=== PATIENT | female | born 1940 | race Caucasian/White ===

== ENCOUNTER 2016-08-25 21:39 | Inpatient (IN) | payer OTHER ==
[2016-08-25 21:48] VITALS: BMI 46.0
--- NOTE | 2016-08-25 22:37 | PDOC ---
History of Present Illness - General History Source: Patient <SindyGrey - Last Filed: 08/26/16 05:01> - General History Source: Patient Exam Limitations: No Limitations - History of Present Illness Initial Comments: 08/26/16 00:01 The patient is a 75 year old female with a PMH of HTN, HLD, DVT, diabetes, arthritis, UTIs, neuropathy bilateral lower extremities, and spinal stenosis presented to the ED today complaining of painless vaginal bleeding that has occurred on and off for several weeks. Today the patient noted her diaper was more and more stained with blood. She also reports frequent UTIs and dysuria. She was examined by her correction staff and they found bleeding in the vaginal region. Denies: Nausea, vomiting, diarrhea, abdominal pain, fever and chills Allergies: Codeine Family History: Heart disease, diabetes PCP: Dr. Dpiti Gutierrez <Debra Hatfield - Last Filed: 08/26/16 05:20> <Linette Marc - Last Filed: 08/26/16 06:45> - General Chief Complaint: Vaginal Bleeding Stated Complaint: VAGINAL BLEEDING Time Seen by Provider: 08/25/16 22:32 Past History - Past Medical History Diabetes: Yes HTN: Yes Suicide Attempt (Hx): No - Surgical History Cholecystectomy: Yes - Family Disease History Family Disease History: Diabetes: Father, Heart Disease: Father - Immunization History Immunization Up to Date: Yes - Psycho/Social/Smoking Cessation Hx Anxiety: No Suicidal Ideation: No Smoking History: Never smoked Have you smoked in the past 12 months: No Hx Alcohol Use: No Drug/Substance Use Hx: No Substance Use Type: None Hx Substance Use Treatment: No <Grey Callahan - Last Filed: 08/26/16 05:01> <Debra Hatfield - Last Filed: 08/26/16 05:20> <Linette Marc - Last Filed: 08/26/16 06:45> - Past Medical History Allergies/Adverse Reactions: Allergies Allergy/AdvReac Type Severity Reaction Status Date / Time codeine Allergy Verified 08/25/16 21:45 Home Medications: Ambulatory Orders Alprazolam [Xanax Xr] 0.5 mg PO DAILY 06/18/16 Alprazolam [Xanax] 0.25 mg PO DAILY PRN 06/18/16 Ascorbic Acid [Vitamin C] 500 mg PO DAILY 06/18/16 Bethanechol Chloride [Urecholine] 50 mg PO TID 06/18/16 Calcium Carbonate/Vitamin D3 [Oyster Shell 500-Vit D3 200 Tb] 1 each PO BID Gabapentin 300 mg PO BID 06/18/16 Gabapentin 600 mg PO DAILY 06/18/16 Glimepiride 2 mg PO DAILY 06/18/16 Hydrochlorothiazide [Hctz -] 25 mg PO DAILY 06/18/16 Insulin Aspart [Novolog] 4 unit SQ HS 06/18/16 Linagliptin [Tradjenta] 5 mg PO DAILY 06/18/16 Lisinopril 5 mg PO DAILY 06/18/16 Miconazole Nitrate [Micatin] 15 gm TP BID 06/18/16 Omeprazole 20 mg PO DAILY 06/18/16 Polyethylene Glycol 3350 [Miralax (For Daily Use) -] 17 gm PO HS 06/18/16 Propylene Glycol/Peg 400/Pf [Systane 0.3-0.4% Eye Drops] 2 drop OU BID 06/18/16 Sertraline HCl 50 mg PO DAILY 06/18/16 Simethicone 80 mg PO Q4H PRN 06/18/16 Tramadol HCl 50 mg PO Q6H PRN 06/18/16 Warfarin Sodium 4 mg PO DAILY 06/18/16 Zinc Oxide 20% Topical Oint 454 gm NR ASDIR 06/18/16 Review of Systems - Review of Systems Able to Perform ROS?: Yes Comments:: 08/26/16 00:10 CONSTITUTIONAL: Absent: fever, chills, diaphoresis, generalized weakness, malaise, loss of appetite HEENT: Absent: rhinorrhea, nasal congestion, throat pain, throat swelling, difficulty swallowing, mouth swelling, ear pain, eye pain, visual Changes CARDIOVASCULAR: Absent: chest pain, syncope, palpitations, irregular heart rate, lightheadedness , peripheral edema RESPIRATORY: Absent: cough, shortness of breath, dyspnea with exertion, orthopnea, wheezing, stridor, hemoptysis GASTROINTESTINAL: Absent: abdominal pain, abdominal distension, nausea, vomiting, diarrhea, constipation, melena, hematochezia GENITOURINARY: +Dysuria, painless vaginal bleeding Absent: frequency, urgency, hesitancy, flank pain, genital pain MUSCULOSKELETAL: Absent: myalgia, arthralgia, joint swelling SKIN: Absent: rash, itching, pallor NEUROLOGIC: Absent: headache, focal weakness or paresthesias, dizziness, unsteady gait, seizure, mental status changes, bladder or bowel incontinence PSYCHIATRIC: Absent: anxiety, depression, suicidal or homicidal ideation, hallucinations <Debra Hatfield - Last Filed: 08/26/16 05:20> *Physical Exam - Vital Signs Last Vital Signs Temp Pulse Resp BP Pulse Ox 98.1 F 77 18 162/74 100 08/25/16 21:45 08/25/16 21:45 08/25/16 21:45 08/25/16 21:45 08/25/16 21:45 <Grey Callahan - Last Filed: 08/26/16 05:01> - Vital Signs Last Vital Signs Temp Pulse Resp BP Pulse Ox 98.1 F 77 18 162/74 100 08/25/16 21:45 08/25/16 21:45 08/25/16 21:45 08/25/16 21:45 08/25/16 21:45 - Physical Exam Comments: 08/26/16 00:10 GENERAL: Well developed, well nourished. Awake and alert. No acute distress. HEENT: Normocephalic, atraumatic. PERRLA, EOMI. No conjunctival pallor. Sclera are non- icteric. Moist mucous membranes. Oropharynx is clear. NECK: Supple. Full ROM. No JVD. Carotid pulses 2+ and symmetric, without bruits. No thyromegaly. No lymphadenopathy. No neck tenderness CARDIOVASCULAR: Regular rate and rhythm. No murmurs, rubs, or gallops. Distal pulses are 2+ and symmetric. PULMONARY: No evidence of respiratory distress. Lungs clear to auscultation bilaterally. No wheezing, rales or rhonchi. ABDOMINAL: Soft. Non-tender. Non-distended. No rebound or guarding. No organomegaly. Normoactive bowel Sounds. PELVIC EXAM: No blood within introitus, No masses, No lesions. No CMT, No suprapubic tenderness MUSCULOSKELETAL Normal range of motion at all joints. No bony deformities or tenderness. No CVA tenderness. EXTREMITIES: No cyanosis. No clubbing. No edema. No calf tenderness. SKIN: Warm and dry. Normal capillary refill. No rashes. No jaundice. NEUROLOGICAL: Alert, awake, appropriate. Cranial nerves 2-12 intact. No deficits to light touch and temperature in face, upper extremities and lower extremities. PSYCHIATRIC: Cooperative. Good eye contact. Appropriate mood and affect. <Debra Hatfield - Last Filed: 08/26/16 05:20> - Vital Signs Last Vital Signs Temp Pulse Resp BP Pulse Ox 98.1 F 73 18 140/56 96 08/25/16 21:45 08/26/16 03:29 08/26/16 03:29 08/26/16 03:29 08/26/16 03:29 <Linette Marc - Last Filed: 08/26/16 06:45> Heart Score/ECG Review - ECG Impressions Comment:: 08/26/16 06:45 NSR @74bpm Anterior infarct, age undetermined Abnormal ECG <Linette Marc - Last Filed: 08/26/16 06:45> ED Treatment Course - LABORATORY CBC & Chemistry Diagram: 08/26/16 01:26 08/26/16 01:26 <Grey Callahan - Last Filed: 08/26/16 05:01> - LABORATORY CBC & Chemistry Diagram: 08/26/16 01:26 08/26/16 01:26 <Debra Hatfield - Last Filed: 08/26/16 05:20> - LABORATORY CBC & Chemistry Diagram: 08/26/16 01:26 08/26/16 01:26 - ADDITIONAL ORDERS Additional order review: Laboratory Results 08/26/16 08/26/16 08/26/16 01:26 01:26 00:05 INR 2.39 H Sodium 142 Potassium 4.2 Chloride 105 Carbon Dioxide 28 Anion Gap 9 BUN 27 H D Creatinine 1.3 H Creat Clearance w eGFR 39.93 Random Glucose 135 H D Calcium 8.4 L Total Bilirubin 0.3 AST 25 D ALT 23 D Alkaline Phosphatase 97 D Total Protein 7.5 Albumin 3.2 L Urine Color Yellow Urine Appearance Slcloudy Urine pH 6.0 Ur Specific [place] 1.014 Urine Protein 1+ H Urine Glucose (UA) Negative Urine Ketones Negative Urine Blood 3+ H Urine Nitrite Negative Urine Bilirubin Negative Urine Urobilinogen Negative Ur Leukocyte Esterase 3+ H Urine RBC 605 Urine WBC 314 Ur Epithelial Cells Rare Urine Bacteria Few 08/26/16 01:26 RBC 4.19 MCV 79.4 L MCHC 31.1 L RDW 17.4 H MPV 8.8 Neutrophils % 72.7 Lymphocytes % 19.5 D Monocytes % 5.8 Eosinophils % 1.8 D Basophils % 0.2 - Medications Given in the ED: ED Medications Discontinued Medications Generic Name Dose Route Start Last Admin Trade Name Aureliano PRN Reason Stop Dose Admin Ceftriaxone Sodium 1,000 mg 08/26/16 01:05 08/26/16 02:16 Rocephin - IVPB 08/26/16 01:06 1,000 mg ONCE ONE Administration Non-Formulary Medication 454 gm 08/26/16 06:00 08/26/16 06:04 Zinc Oxide 20% Topical Oint NR Not Given TID ESHA <Linette Marc - Last Filed: 08/26/16 06:45> Medical Decision Making - Medical Decision Making 08/26/16 05:01 Dr. Callahan: The scribe's documentation has been prepared under my direction and personally reviewed by me in its entirery. I confirm that the note above accurately reflects all work, treatment, procedures, and medical decision making performed by me. Patient with recurrent UTIs. Patient's BUN/creatinine are slightly more elevated than before. Will admit. <Grey Callahan - Last Filed: 08/26/16 05:01> - Medical Decision Making 08/26/16 00:12 Fishman was placed. Cloudy urine came out with clots of blood. <Debra Hatfield - Last Filed: 08/26/16 05:20> *DC/Admit/Observation/Transfer - Discharge Dispostion Admit: Yes <Grey Callahan - Last Filed: 08/26/16 05:01> - Attestations Scribe Attestion: 08/26/16 00:12 Documentation prepared by Debra Hatfield, acting as medical records coder for Grey Callahan MD/DO. <Debra Hatfield - Last Filed: 08/26/16 05:20> <Linette Marc - Last Filed: 08/26/16 06:45> Diagnosis at time of Disposition: UTI (lower urinary tract infection) - Referrals
[2016-08-26 00:16] LABS: URINE APPEARANCE SLCLOUDY; URINE BILIRUBIN NEGATIVE (NEGATIVE); URINE COLOR YELLOW; URINE GLUCOSE (UA) NEGATIVE (NEGATIVE); URINE KETONE NEGATIVE (NEGATIVE); URINE NITRITE NEGATIVE (NEGATIVE); URINE UROBILINOGEN NEGATIVE E.U./dl (0.2-1.0)
[2016-08-26 00:21] LABS: URINE BLOOD 3+ (NEGATIVE); URINE LEUK ESTERASE 3+ (NEGATIVE); URINE PROTEIN 1+ (NEGATIVE)
[2016-08-26 00:36] LABS: URINE BACTERIA FEW /hpf (NONE SEEN); URINE RBC 605 /hpf (0-3); URINE WBC 314 /hpf (3-5)
[2016-08-26] MEDS ORDERED: CEFTRIAXONE 50 ML ONE (01:21)
[2016-08-26 02:21] LABS: BASOPHIL 0.2 % (0-2.0); EOSINOPHIL 1.8 % (0-4.5); MCH 24.7 pg (25.7-33.7); MCHC 31.1 g/dl (32.0-36.0); MEAN CELL VOLUME 79.4 fl (80-96); MEAN PLT VOLUME 8.8 fl (7.5-11.1); NEUTROPHILS 72.7 % (42.8-82.8); PLATELET COUNT 230 K/MM3 (134-434); RDW 17.4 % (11.6-15.6); WHITE BLOOD COUNT 7.6 K/mm3 (4.0-10.0)
[2016-08-26 02:40] LABS: INR 2.39 (0.82-1.09); PROTHROMBIN TIME (PATIENT) 26.8 SEC (9.98-11.88)
[2016-08-26 02:45] LABS: ALBUMIN 3.2 g/dl (3.4-5.0); BILIRUBIN,TOTAL 0.3 mg/dL (0.2-1.0); CALCIUM 8.4 mg/dL (8.5-10.1); CREATININE 1.3 mg/dL (0.55-1.02); TOT PROT 7.5 g/dl (6.4-8.2)
[2016-08-26] MEDS ORDERED: ALPRAZolam 0.25 MG TABLET PO PRN (05:41)
[2016-08-26] MEDS ORDERED: SIMETHICONE 80 MG TAB.CHEW (FP) PO PRN (05:41)
[2016-08-26] MEDS ORDERED: traMADol HCL 50 MG TABLET PO PRN (05:41)
--- NOTE | 2016-08-26 05:41 | HP ---
CHIEF COMPLAINT: vaginal bleeding, dysuria PCP: Matt HISTORY OF PRESENT ILLNESS: This is a 75 year old female terminal [facility] resident of [facility] with a past medical history of hypertension, DVT, DM, arthritis, UTIs, neuropathy, spinal stenosis who presented to the ED with a complaint of " vaginal bleeding". Pt also reports dysuria off and on since mid May for which she has been treated multiple times with antibiotics. As per ED doctor, no blood in vaginal vault, + kasie hematuria. Pt is being admitted for UTI. ER course was notable for: (1) u/a c/w UTI (2) normal WBC (3) afebrile Recent Travel: pt denies PAST MEDICAL HISTORY: DM arthritis spinal stenosis with neuropathy recurrent UTI HTN bilat DVT after cholecystectomy PAST SURGICAL HISTORY: cholecystectomy x 2 Social History: Smoking: pt denies Alcohol:pt denies Drugs: pt denies Family History: mother age 64, brain [place] father age 64, [place] daughter alive and well, s/p meningioma near eyes, removed 1 son, [place], smoker's cough Allergies codeine Allergy (Verified 08/25/16 21:45) HOME MEDICATIONS: 3 Medication Instructions Recorded Alprazolam [Xanax Xr] 0.5 mg PO DAILY 06/18/16 Alprazolam [Xanax] 0.25 mg PO DAILY PRN 06/18/16 Ascorbic Acid [Vitamin C] 500 mg PO DAILY 06/18/16 Bethanechol Chloride [Urecholine] 50 mg PO TID 06/18/16 Calcium Carbonate/Vitamin D3 1 each PO BID 06/18/16 [Oyster Shell 500-Vit D3 200 Tb] Gabapentin 300 mg PO BID 06/18/16 Gabapentin 600 mg PO DAILY 06/18/16 Glimepiride 2 mg PO DAILY 06/18/16 Hydrochlorothiazide [Hctz -] 25 mg PO DAILY 06/18/16 Insulin Aspart [Novolog] 4 unit SQ HS 06/18/16 Linagliptin [Tradjenta] 5 mg PO DAILY 06/18/16 Lisinopril 5 mg PO DAILY 06/18/16 Miconazole Nitrate [Micatin] 15 gm TP BID 06/18/16 Omeprazole 20 mg PO DAILY 06/18/16 Polyethylene Glycol 3350 [Miralax 17 gm PO HS 06/18/16 (For Daily Use) -] Propylene Glycol/Peg 400/Pf 2 drop OU BID 06/18/16 [Systane 0.3-0.4% Eye Drops] Sertraline HCl 50 mg PO DAILY 06/18/16 Simethicone 80 mg PO Q4H PRN 06/18/16 Tramadol HCl 50 mg PO Q6H PRN 06/18/16 Warfarin Sodium 4 mg PO DAILY 06/18/16 Zinc Oxide 20% Topical Oint 454 gm NR ASDIR 06/18/16 REVIEW OF SYSTEMS CONSTITUTIONAL: Absent: fever, chills, diaphoresis, generalized weakness, malaise, loss of appetite, weight change HEENT: Absent: rhinorrhea, nasal congestion, throat pain, throat swelling, difficulty swallowing, mouth swelling, ear pain, eye pain, visual changes CARDIOVASCULAR: Absent: chest pain, syncope, palpitations, irregular heart rate, lightheadedness , peripheral edema RESPIRATORY: Absent: cough, shortness of breath, dyspnea with exertion, orthopnea, wheezing, stridor, hemoptysis GASTROINTESTINAL: Absent: abdominal pain, abdominal distension, nausea, vomiting, diarrhea, constipation, melena, hematochezia GENITOURINARY: dysuria, vaginal bleeding Absent: frequency, urgency, hesitancy, hematuria, flank pain, genital pain MUSCULOSKELETAL: Absent: myalgia, arthralgia, joint swelling, back pain, neck pain SKIN: Absent: rash, itching, pallor HEMATOLOGIC/IMMUNOLOGIC: Absent: easy bleeding, easy bruising, lymphadenopathy, frequent infections ENDOCRINE: Absent: unexplained weight gain, unexplained weight loss, heat intolerance, cold intolerance NEUROLOGIC: Absent: headache, focal weakness or paresthesias, dizziness, unsteady gait, seizure, mental status changes, bladder or bowel incontinence PSYCHIATRIC: Absent: anxiety, depression, suicidal or homicidal ideation, hallucinations. PHYSICAL EXAMINATION Vital Signs - 24 hr 3 08/25/16 08/26/16 21:45 03:29 Temperature 98.1 F Pulse Rate 77 Pulse Rate [ 73 Radial] Respiratory 18 18 Rate Blood Pressure 162/74 Blood Pressure 140/56 [Right Arm] O2 Sat by Pulse 100 96 Oximetry (%) GENERAL: Awake, alert, and fully oriented, in no acute distress. HEAD: Normal with no signs of trauma. EYES: Pupils equal, round and reactive to light, extraocular movements intact, sclera anicteric, conjunctiva clear. No lid lag. EARS, NOSE, THROAT: Ears normal, nares patent, oropharynx clear without exudates. Moist mucous membranes. NECK: Normal range of motion, supple without lymphadenopathy, JVD, or masses. LUNGS: Breath sounds equal, clear to auscultation bilaterally. No wheezes, and no crackles. No accessory muscle use. HEART: Regular rate and rhythm, normal S1 and S2 without murmur, rub or gallop. ABDOMEN: Soft, nontender, not distended, normoactive bowel sounds, no guarding, no rebound, no masses. No hepatomegaly or splenomegaly. MUSCULOSKELETAL: Normal range of motion at all joints. No bony deformities or tenderness. No CVA tenderness. UPPER EXTREMITIES: 2+ pulses, warm, well-perfused. No cyanosis. No clubbing. Cap refill <2 seconds. No peripheral edema. LOWER EXTREMITIES: 2+ pulses, warm, well-perfused. No calf tenderness. 1+edema NEUROLOGICAL: Cranial nerves II-XII intact. Normal speech. Normal gait. PSYCHIATRIC: Cooperative. Good eye contact. Appropriate mood and affect. SKIN: Warm, dry, normal turgor, no rashes or lesions noted. Laboratory Results - last 24 hr 3 08/26/16 08/26/16 08/26/16 00:05 01:26 01:26 WBC 7.6 D RBC 4.19 Hgb 10.4 L D Hct 33.3 MCV 79.4 L MCHC 31.1 L RDW 17.4 H Plt Count 230 D MPV 8.8 Neutrophils % 72.7 Lymphocytes % 19.5 D Monocytes % 5.8 Eosinophils % 1.8 D Basophils % 0.2 INR 2.39 H Sodium 142 Potassium 4.2 Chloride 105 Carbon Dioxide 28 Anion Gap 9 BUN 27 H D Creatinine 1.3 H Creat Clearance w eGFR 39.93 Random Glucose 135 H D Calcium 8.4 L Total Bilirubin 0.3 AST 25 D ALT 23 D Alkaline Phosphatase 97 D Total Protein 7.5 Albumin 3.2 L Urine Color Yellow Urine Appearance Slcloudy Urine pH 6.0 Ur Specific [place] 1.014 Urine Protein 1+ H Urine Glucose (UA) Negative Urine Ketones Negative Urine Blood 3+ H Urine Nitrite Negative Urine Bilirubin Negative Urine Urobilinogen Negative Ur Leukocyte Esterase 3+ H Urine RBC 605 Urine WBC 314 Ur Epithelial Cells Rare Urine Bacteria Few ASSESSMENT/PLAN: 75yF with PMH hypertension, DVT, DM, arthritis, UTIs, neuropathy, spinal stenosis who presented to the ED for "vaginal bleeding" and dysuria. Pt is being admitted for recurrent UTI. UTI - cont ceftriaxone 1g q24h - cont urecholine - recommend start cranberry capsules at nursing for prophylaxis ARVIN - Cr 1.3, baseline 0.8-1.1 - gentle IVF, NS 75cc/hr x 1 liter - repeat labs in AM HTN - BP stable, cont home meds DVT history - cont coumadin DM - sugar 121, A1C in AM - hold tradjenta, give insulin SS - FSBS TIDHS arthritis/spinal stenosis - cont home tramadol PRN Constipation - cont home metamucil and miralax standing, MOM PRN GERD - change omeprazole to formulary protonix. DVT PPX - on coumadin, cont same. FEN - NS @75cc/hr - repeat labs in AM - diabetic/sodium diet Dispo: pt requires current inpatient care. Visit type - Emergency Visit Emergency Visit: Yes ED Registration Date: 08/25/16 Care time: The patient presented to the Emergency Department on the above date and was hospitalized for further evaluation of their emergent condition. - New Patient This patient is new to me today: Yes Date on this admission: 08/26/16 - Critical Care Critical Care patient: No
[2016-08-26] MEDS ORDERED: PATIENT'S OWN MEDICATION (NON-FORMULARY) (Zinc Oxide 20% Topical Oint 454 GM) NR SCH (06:00)
[2016-08-26] MEDS ORDERED: GABAPENTIN 100 MG CAPSULE (FP) ONE ×2 (06:03→14:22)
[2016-08-26] MEDS: GABAPENTIN 300 MG CAPSULE (FP) PO SCH ×3 (06:09→21:41)
[2016-08-26] MEDS: BETHANECHOL CHLORIDE 25 MG TABLET PO SCH ×3 (07:07→21:40)
[2016-08-26] MEDS ORDERED: SODIUM CHLORIDE 1,000 ML IV SCH (07:15)
[2016-08-26] MEDS: sitaGLIPtin PHOSPHATE 25 MG TABLET (FP) PO SCH (08:05)
[2016-08-26] MEDS: LISINOPRIL 5 MG TABLET (FP) PO SCH (10:50)
[2016-08-26] MEDS: SERTRALINE HCL 50 MG TABLET (FP) PO SCH (10:50)
[2016-08-26] MEDS: HYDROCHLOROTHIAZIDE 25 MG TABLET (FP) PO SCH (10:50)
[2016-08-26] MEDS: PANTOPRAZOLE 20 MG TABLET (FP) PO SCH (10:50)
[2016-08-26] MEDS: GLIMEPIRIDE 2 MG TABLET (FP) PO SCH (10:50)
[2016-08-26] MEDS: ASCORBIC ACID 500 MG TABLET (FP) PO SCH (10:50)
[2016-08-26] MEDS: MICONAZOLE NITRATE 14 GM/TUBE TUBE TP SCH ×2 (11:02→21:39)
[2016-08-26] MEDS: CALCIUM 500MG/VIT-D 200 UNITS COMBO TABLET (FP) PO SCH ×2 (11:02→21:40)
[2016-08-26] MEDS: ARTIFICIAL TEARS (POLYVINYL ALCOHOL 1.4%) OPTH DROPS OU SCH ×2 (11:02→21:39)
[2016-08-26] MEDS: PSYLLIUM 5.85 GM PACKET PO SCH (11:02)
--- NOTE | 2016-08-26 14:01 | EKG ---
Test Reason : Blood Pressure : / mmHG Vent. Rate : 074 BPM Atrial Rate : 074 BPM P-R Int : 146 ms QRS Dur : 082 ms QT Int : 420 ms P-R-T Axes : 035 029 076 degrees QTc Int : 466 ms NORMAL SINUS RHYTHM ANTERIOR INFARCT , AGE UNDETERMINED ABNORMAL ECG WHEN COMPARED WITH ECG OF 18-JUN-2016 09:18, ANTERIOR INFARCT IS NOW PRESENT NONSPECIFIC T WAVE ABNORMALITY NOW EVIDENT IN LATERAL LEADS Confirmed by LAURA CASAS, MAURICE ([id number]) on 08/26/2016 2:00:45 PM Referred By: Confirmed By:MAURICE SANCHEZ MD
[2016-08-26] MEDS: ZINC OXIDE 20% TOPICAL OINTMENT 454 GM JAR NR SCH ×2 (14:32→21:39)
--- NOTE | 2016-08-26 17:04 | CONSULT ---
Consultation: REQUESTING PROVIDER: CONSULT REQUEST: We have been asked to medically evaluate this patient for UTI HISTORY OF PRESENT ILLNESS: 75 year old female was brought in from [facility] after noticing blood in urine x 3 days. Patient reports that she experienced burning in urination on/off since the last admission on 06/17/2016 (Was treated for Urosepsis positive for Proteus mirabilis). After the patient was discharged on 06/29/2016, patient felt better but started having burning urination, increased in frequency along with chronic urinary incontinence problem. She was [facility]in [facility] 7[facility], felt better for 2 days and started having the same urinary symptoms. Initially, thought the blood was from hemorrhoids, later found out it was hematuria. Patient also complaints of "stomach sore" but felt better after moving her bowels today. Also has headache 5/10 in intensity as she couldn't sleep last night as per the patient. Patient also mentions he had urinary stricture in the past for which she was seen by Dr. Shaila Cristina. 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 Medications: Medication Instructions Recorded Alprazolam [Xanax Xr] 0.5 mg PO DAILY 06/18/16 Alprazolam [Xanax] 0.25 mg PO DAILY PRN 06/18/16 Ascorbic Acid [Vitamin C] 500 mg PO DAILY 06/18/16 Bethanechol Chloride [Urecholine] 50 mg PO TID 06/18/16 Calcium Carbonate/Vitamin D3 1 each PO BID 06/18/16 [Oyster Shell 500-Vit D3 200 Tb] Gabapentin 300 mg PO BID 06/18/16 Gabapentin 600 mg PO DAILY 06/18/16 Glimepiride 2 mg PO DAILY 06/18/16 Hydrochlorothiazide [Hctz -] 25 mg PO DAILY 06/18/16 Insulin Aspart [Novolog] 4 unit SQ AC 06/18/16 Linagliptin [Tradjenta] 5 mg PO DAILY 06/18/16 Lisinopril 5 mg PO DAILY 06/18/16 Miconazole Nitrate [Micatin] 15 gm TP BID 06/18/16 Omeprazole 20 mg PO DAILY 06/18/16 Polyethylene Glycol 3350 [Miralax 17 gm PO HS 06/18/16 (For Daily Use) -] Propylene Glycol/Peg 400/Pf 2 drop OU BID 06/18/16 [Systane 0.3-0.4% Eye Drops] Sertraline HCl 50 mg PO DAILY 06/18/16 Simethicone 80 mg PO Q4H PRN 06/18/16 Tramadol HCl 50 mg PO Q6H PRN 06/18/16 Warfarin Sodium 4 mg PO DAILY 06/18/16 Zinc Oxide 20% Topical Oint 454 gm NR ASDIR 06/18/16 Magnesium Hydrox 2400MG/30Ml [Milk 30 ml PO DAILY PRN 08/26/16 of Magnesia -] Psyllium Seed/Aspartame [Natural 3.4 gm PO BID 08/26/16 Fiber Powder] REVIEW OF SYSTEMS: CONSTITUTIONAL: Absent: fever, chills, diaphoresis, generalized weakness, malaise, loss of appetite, weight change HEENT: Present: Nasal congestion Absent: rhinorrhea, throat pain, throat swelling, difficulty swallowing, mouth swelling, ear pain, eye pain, visual changes CARDIOVASCULAR: Absent: chest pain, syncope, palpitations, irregular heart rate, lightheadedness , peripheral edema RESPIRATORY: Absent: cough, shortness of breath, dyspnea with exertion, orthopnea, wheezing, stridor, hemoptysis GASTROINTESTINAL: Absent: abdominal pain, abdominal distension, nausea, vomiting, diarrhea, constipation, melena, hematochezia GENITOURINARY: Present: dysuria, frequency, urgency, hematuria Absent: hesitancy, flank pain, genital pain MUSCULOSKELETAL: Absent: myalgia, arthralgia, joint swelling, back pain, neck pain SKIN: Absent: rash, itching, pallor HEMATOLOGIC/IMMUNOLOGIC: Absent: easy bleeding, easy bruising, lymphadenopathy, frequent infections ENDOCRINE: Absent: unexplained weight gain, unexplained weight loss, heat intolerance, cold intolerance NEUROLOGIC: Present- Headache Absent: headache, focal weakness or paresthesias, dizziness, unsteady gait, seizure, mental status changes, bladder or bowel incontinence PSYCHIATRIC: Absent: anxiety, depression, suicidal or homicidal ideation, hallucinations. PHYSICAL EXAMINATION Vital Signs - 24 hr 08/26/16 08/26/16 08/26/16 07:25 10:50 14:32 Pulse Rate [ 76 70 73 Radial] Respiratory 17 19 18 Rate Blood Pressure 121/57 130/59 109/59 [Right Arm] O2 Sat by Pulse 100 97 100 Oximetry (%) GENERAL: Patient is lying in bed, Awake, alert, and fully oriented, in no acute distress. HEAD: Normal with no signs of trauma. EYES: PEERLA, mild pallor + no icterus. EARS, NOSE, THROAT: Ears normal. NECK: No JVD or masses. LUNGS: Breath sounds equal, clear to auscultation bilaterally. No wheezes, and no crackles. No accessory muscle use. HEART: Regular rate and rhythm, normal S1 and S2 without murmur. ABDOMEN: Soft, discomfort on palpation, not distended, normoactive bowel sounds , no guarding, no rebound, no masses. No hepatomegaly or splenomegaly. MUSCULOSKELETAL: Normal range of motion at all joints. No bony deformities or tenderness. No CVA tenderness. UPPER EXTREMITIES: 2+ pulses, warm, well-perfused. No cyanosis. No clubbing. LOWER EXTREMITIES: Left foot drop, decreased sensation over the left lower foot , 2+ pulses, warm, well-perfused. No calf tenderness. B/L pitting edema. NEUROLOGICAL: Cranial nerves II-XII intact. Normal speech. Gait not observed. PSYCHIATRIC: Cooperative. Good eye contact. Appropriate mood and affect. SKIN: Warm, dry, normal turgor, no rashes or lesions noted. Active Medications Generic Name Dose Route Start Last Admin Trade Name Freq PRN Reason Stop Dose Admin Alprazolam 0.25 mg 08/26/16 05:41 Xanax - PO DAILY PRN ANXIETY Artificial Tears 2 drop 08/26/16 10:00 08/26/16 11:02 Artificial Tears OU Not Given BID ESHA Ascorbic Acid 500 mg 08/26/16 10:00 08/26/16 10:50 Vitamin C - PO 500 mg DAILY ESHA Administration Bethanechol Chloride 50 mg 08/26/16 06:00 08/26/16 14:25 Urecholine - PO 50 mg TID ESHA Administration Calcium Carbonate/Cholecalciferol 1 tab 08/26/16 10:00 08/26/16 11:02 Os-Carlos 500+D - PO Not Given BID ESHA Gabapentin 300 mg 08/26/16 06:00 08/26/16 14:25 Neurontin - PO 300 mg BID@0600,1400 E[facility] Administration Gabapentin 600 mg 08/26/16 22:00 Neurontin - PO HS ESHA Glimepiride 2 mg 08/26/16 10:00 08/26/16 10:50 Amaryl - PO 2 mg DAILY ESHA Administration Hydrochlorothiazide 25 mg 08/26/16 10:00 08/26/16 10:50 Hctz - PO 25 mg DAILY E[facility] Administration Ceftriaxone Sodium 50 mls @ 100 mls/hr 08/26/16 22:00 Rocephin 1gm Ivpb (Pre-Docked) IVPB HS [facility] Sodium Chloride 1,000 mls @ 75 mls/hr 08/26/16 07:15 08/26/16 08:05 Normal Saline - IV 08/26/16 20:34 75 mls/hr ASDIR E[facility] Administration Insulin Aspart 4 units 08/26/16 17:00 Novolog Vial SQ DAILY@1700 [facility] Lisinopril 5 mg 08/26/16 10:00 08/26/16 10:50 Prinivil PO 5 mg DAILY [facility] Administration Miconazole Nitrate 1 applic 08/26/16 10:00 08/26/16 11:02 Monistat Topical Cream - TP Not Given BID [facility] Multi-Ingredient Ointment 0 gm 08/26/16 06:33 08/26/16 14:32 Zinc Oxide 20% Topical Oint NR Not Given TID ESHA Pantoprazole Sodium 20 mg 08/26/16 10:00 08/26/16 10:50 Protonix - PO 20 mg DAILY [facility] Administration Polyethylene Glycol 17 gm 08/26/16 22:00 Miralax (For Daily Use) - PO HS [facility] Psyllium Hydrophilic Mucilloid 5.85 gm 08/26/16 10:00 08/26/16 11:02 Metamucil (Sugar-Free) - PO Not Given DAILY [facility] Sertraline HCl 50 mg 08/26/16 10:00 08/26/16 10:50 Zoloft - PO 50 mg DAILY [facility] Administration Simethicone 80 mg 08/26/16 05:41 Mylicon - PO Q4H PRN GAS Sitagliptin Phosphate 25 mg 08/26/16 07:00 08/26/16 08:05 Januvia - PO 25 mg DAILY@0700 [facility] Administration Tramadol HCl 50 mg 08/26/16 05:41 Ultram - PO Q6H PRN PAIN Warfarin Sodium 4 mg 08/26/16 18:00 Coumadin - PO DAILY@1800 [facility] ASSESSMENT/PLAN: 75 year old female with significant past medical history of DM, HTN, DVT, spinal stenosis with neuropathy was brought in from [facility] after noticing blood in urine x 3 days # Urinary Tract Infection Presented with Hematuria, burning urination, increased frequency, chronic urinary incontinence Previous h/o urosepsis positive for Proteus Urine culture pending, it may alter as she recently took cephalexin for 7days Renal ultrasound report mentioned above Ceftriaxone to be continued Plenty of fluid intake Would consider consulting with Dr. Cristina. # DVT Coumadin to be continued # DM On Insulin sliding scale Monitor blood sugar and hypoglycemic episodes. # DVT prophylaxis On coumadin Monitor INR # FEN IV NS @75cc/hr Diabetic/sodium diet Rest as per primary Illness, Investigation and Plan of care explained to the patient. She verbalized understanding. Case seen and discussed with Dr. Zhou. Visit type - Emergency Visit Emergency Visit: Yes ED Registration Date: 08/26/16 Care time: The patient presented to the Emergency Department on the above date and was hospitalized for further evaluation of their emergent condition. - New Patient This patient is new to me today: Yes Date on this admission: 08/26/16 - Critical Care Critical Care patient: No
[2016-08-26] MEDS ORDERED: WARFARIN NA 2 MG TABLET (UD) PO SCH (18:00)
--- NOTE | 2016-08-26 18:06 | PN ---
Teaching Attending Note Name of Resident: Clara Espinoza ATTENDING PHYSICIAN STATEMENT I saw and evaluated the patient. I reviewed the resident's note and discussed the case with the resident. I agree with the resident's findings and plan as documented. SUBJECTIVE: vaginal bleeding- found to have hematuria no fever history of UTI end of may at [facility] no history of resistant organisms history of urethral stricture in the past OBJECTIVE: Vital Signs Period Temp Pulse Resp BP Sys/Manley Pulse Ox Last 24 Hr 98.1 F 70-77 17-19 109-163/56-78 96-100 cor-rrr lungs clear abd soft,nt ext no edema CBC, BMP 08/26/16 01:26 08/26/16 01:26 ASSESSMENT AND PLAN: hematuria/UTI continue rocephin f/u cultures consider urology consult- she is followed by dr hirsch Problem List - Problems (1) UTI (lower urinary tract infection) Code(s): N39.0 - URINARY TRACT INFECTION, SITE NOT SPECIFIED (2) Hematuria Code(s): R31.9 - HEMATURIA, UNSPECIFIED
[2016-08-26] MEDS: INSULIN (NOVOLOG) ASPART 100 UNITS/ML 10ML VIAL SQ SCH (18:08)
[2016-08-26] MEDS ORDERED: PT OWN MED DRAWER 7, Y5N ONE (21:06)
[2016-08-26] MEDS: POLYETHYLENE GLYCOL 3350 119 GM BTL PO SCH (21:41)
[2016-08-26] MEDS: CEFTRIAXONE 50 ML IVPB SCH (21:41)
[2016-08-27] MEDS ORDERED: PT OWN MED DRAWER 7, Y5N ONE ×5 (06:15→21:25)
[2016-08-27] MEDS: sitaGLIPtin PHOSPHATE 25 MG TABLET (FP) PO SCH (06:43)
[2016-08-27] MEDS: GABAPENTIN 300 MG CAPSULE (FP) PO SCH ×3 (06:45→21:31)
[2016-08-27] MEDS: ZINC OXIDE 20% TOPICAL OINTMENT 454 GM JAR NR SCH ×3 (06:45→21:33)
[2016-08-27] MEDS: BETHANECHOL CHLORIDE 25 MG TABLET PO SCH ×3 (06:45→21:32)
[2016-08-27 08:25] LABS: MCH 25.4 pg (25.7-33.7); MCHC 32.1 g/dl (32.0-36.0); MEAN CELL VOLUME 79.1 fl (80-96); MEAN PLT VOLUME 8.4 fl (7.5-11.1); PLATELET COUNT 191 K/MM3 (134-434); RDW 17.3 % (11.6-15.6); WHITE BLOOD COUNT 6.2 K/mm3 (4.0-10.0)
[2016-08-27] MEDS: ARTIFICIAL TEARS (POLYVINYL ALCOHOL 1.4%) OPTH DROPS OU SCH ×2 (09:12→21:29)
[2016-08-27] MEDS: HYDROCHLOROTHIAZIDE 25 MG TABLET (FP) PO SCH (09:13)
[2016-08-27] MEDS: CALCIUM 500MG/VIT-D 200 UNITS COMBO TABLET (FP) PO SCH ×2 (09:13→09:17)
[2016-08-27] MEDS: SERTRALINE HCL 50 MG TABLET (FP) PO SCH (09:13)
[2016-08-27] MEDS: ASCORBIC ACID 500 MG TABLET (FP) PO SCH (09:13)
[2016-08-27] MEDS: LISINOPRIL 5 MG TABLET (FP) PO SCH (09:14)
[2016-08-27] MEDS: PANTOPRAZOLE 20 MG TABLET (FP) PO SCH (09:14)
[2016-08-27] MEDS: PSYLLIUM 5.85 GM PACKET PO SCH (09:15)
[2016-08-27] MEDS: MICONAZOLE NITRATE 14 GM/TUBE TUBE TP SCH ×2 (09:15→21:31)
--- NOTE | 2016-08-27 09:24 | PN ---
Physical Exam: SUBJECTIVE: Patient seen and examined at bed side this morning. Feels much better than yesterday. Just moved her bowels, no blood noticed in the stool. However, had blood tinged areas in the diaper most likely from the urinary tract. Appetite Normal. Sleep-Normal. OBJECTIVE: Vital Signs Period Temp Pulse Resp BP Sys/Manley Pulse Ox Last 24 Hr 97.9 F-98.4 F 70-83 16-20 109-163/52-78 97-100 GENERAL: Patient is lying in bed, Awake, alert, and fully oriented, in no acute distress. HEAD: Normal with no signs of trauma. EYES: PEERLA, mild pallor + no icterus. EARS, NOSE, THROAT: Ears normal. NECK: No JVD or masses. LUNGS: Breath sounds equal, clear to auscultation bilaterally. No wheezes, and no crackles. No accessory muscle use. HEART: Regular rate and rhythm, normal S1 and S2 without murmur. ABDOMEN: Soft, discomfort on palpation, not distended, normoactive bowel sounds , no guarding, no rebound, no masses. No hepatomegaly or splenomegaly. MUSCULOSKELETAL: Normal range of motion at all joints. No bony deformities or tenderness. No CVA tenderness. UPPER EXTREMITIES: 2+ pulses, warm, well-perfused. No cyanosis. No clubbing. LOWER EXTREMITIES: Left foot drop, decreased sensation over the left lower foot , 2+ pulses, warm, well-perfused. No calf tenderness. B/L pitting edema. NEUROLOGICAL: Cranial nerves II-XII intact. Normal speech. Gait not observed. PSYCHIATRIC: Cooperative. Good eye contact. Appropriate mood and affect. SKIN: Warm, dry, normal turgor, no rashes or lesions noted. Laboratory Results - last 24 hr 08/26/16 08/26/16 08/27/16 18:06 22:48 06:43 WBC RBC Hgb Hct MCV MCHC RDW Plt Count MPV POC Glucometer 99 114 114 08/27/16 06:45 WBC 6.2 RBC 3.80 Hgb 9.6 L Hct 30.0 L MCV 79.1 L MCHC 32.1 RDW 17.3 H Plt Count 191 MPV 8.4 POC Glucometer Active Medications Generic Name Dose Route Start Last Admin Trade Name Freq PRN Reason Stop Dose Admin Alprazolam 0.25 mg 08/26/16 05:41 Xanax - PO DAILY PRN ANXIETY Artificial Tears 2 drop 08/26/16 10:00 08/27/16 09:12 Artificial Tears OU 2 drop BID ESHA Administration Ascorbic Acid 500 mg 08/26/16 10:00 08/27/16 09:13 Vitamin C - PO 500 mg DAILY E[facility] Administration Bethanechol Chloride 50 mg 08/26/16 06:00 08/27/16 06:45 Urecholine - PO 50 mg TID E[facility] Administration Calcium Carbonate/Cholecalciferol 1 tab 08/26/16 10:00 08/27/16 09:17 Os-Carlos 500+D - PO Not Given BID ESHA Gabapentin 300 mg 08/26/16 06:00 08/27/16 06:45 Neurontin - PO 300 mg BID@0600,1400 E[facility] Administration Gabapentin 600 mg 08/26/16 22:00 08/26/16 21:41 Neurontin - PO 600 mg HS [facility] Administration Glimepiride 2 mg 08/26/16 10:00 08/26/16 10:50 Amaryl - PO 2 mg DAILY [facility] Administration Hydrochlorothiazide 25 mg 08/26/16 10:00 08/27/16 09:13 Hctz - PO 25 mg DAILY [facility] Administration Ceftriaxone Sodium 50 mls @ 100 mls/hr 08/26/16 22:00 08/26/16 21:41 Rocephin 1gm Ivpb (Pre-Docked) IVPB 100 mls/hr HS [facility] Administration Insulin Aspart 4 units 08/26/16 17:00 08/26/16 18:08 Novolog Vial SQ Not Given DAILY@1700 [facility] Lisinopril 5 mg 08/26/16 10:00 08/27/16 09:14 Prinivil PO 5 mg DAILY [facility] Administration Miconazole Nitrate 1 applic 08/26/16 10:00 08/27/16 09:15 Monistat Topical Cream - TP 1 applic BID E[facility] Administration Multi-Ingredient Ointment 0 gm 08/26/16 06:33 08/27/16 06:45 Zinc Oxide 20% Topical Oint NR 1 applic TID E[facility] Administration Pantoprazole Sodium 20 mg 08/26/16 10:00 08/27/16 09:14 Protonix - PO 20 mg DAILY [facility] Administration Polyethylene Glycol 17 gm 08/26/16 22:00 08/26/16 21:41 Miralax (For Daily Use) - PO 17 gm HS [facility] Administration Psyllium Hydrophilic Mucilloid 5.85 gm 08/26/16 10:00 08/27/16 09:15 Metamucil (Sugar-Free) - PO Not Given DAILY [facility] Sertraline HCl 50 mg 08/26/16 10:00 08/27/16 09:13 Zoloft - PO 50 mg DAILY [facility] Administration Simethicone 80 mg 08/26/16 05:41 Mylicon - PO Q4H PRN GAS Sitagliptin Phosphate 25 mg 08/26/16 07:00 08/27/16 06:43 Januvia - PO 25 mg DAILY@0700 [facility] Administration Tramadol HCl 50 mg 08/26/16 05:41 Ultram - PO Q6H PRN PAIN Warfarin Sodium 4 mg 08/26/16 18:00 08/26/16 18:14 Coumadin - PO Not Given DAILY@1800 [facility] 08/26/2016 Renal USG: Limited study with cortical atrophy and mild hydronephrosis bilaterally. ASSESSMENT/PLAN: 75 year old female with significant past medical history of DM, HTN, DVT, spinal stenosis with neuropathy was brought in from [facility] after noticing blood in urine x 3 days # Urinary Tract Infection- Non lactose fermenting Gram negative bacteria Presented with Hematuria, burning urination, increased frequency, chronic urinary incontinence Previous h/o urosepsis positive for Proteus Urine culture showed Non lactose fermenting Gram negative bacteria. Renal ultrasound report mentioned above Ceftriaxone changed to keflex x 5 days Plenty of fluid intake Would consider consulting with Dr. Cristina. # DVT Coumadin to be continued # DM On Insulin sliding scale Monitor blood sugar and hypoglycemic episodes. # DVT prophylaxis On coumadin Monitor INR # FEN IV NS @75cc/hr Diabetic/sodium diet Rest as per primary Illness, Investigation and Plan of care explained to the patient. She verbalized understanding. Case seen and discussed with Dr. Choudhary. Visit type - Emergency Visit Emergency Visit: Yes ED Registration Date: 08/26/16 Care time: The patient presented to the Emergency Department on the above date and was hospitalized for further evaluation of their emergent condition. - New Patient This patient is new to me today: Yes Date on this admission: 08/27/16 - Critical Care Critical Care patient: No
[2016-08-27] MEDS: GLIMEPIRIDE 2 MG TABLET (FP) PO SCH (11:52)
--- NOTE | 2016-08-27 14:20 | PN ---
Progress Note (short form) - Note Progress Note: ID Seen with Resident Feels better NO fever Ceftriaxone Selected Entries 08/27/16 09:00 Temperature 98.0 F Pulse Rate 74 Respiratory 20 Rate Blood Pressure 150/68 Abd benign sot nontender Microbiology 06/21/16 14:45 Urine - Urine - Catheterized Urine Culture - Final Contaminated: Please Repeat 06/18/16 00:10 Urine - Urine Clean Catch Urine Culture - Final Contaminated: Please Repeat 08/26/16 00:05 Urine - Urine - Catheterized Urine Culture - Preliminary Non Lactose Fermenting Gnb Laboratory Tests 08/26/16 08/26/16 08/27/16 00:05 01:26 06:45 WBC 6.2 RBC 3.80 Hct 30.0 L Plt Count 191 BUN 27 H D Ur Leukocyte Esterase 3+ H Urine RBC 605 Urine WBC 314 Assessment Recurrent UTI ? Proteus again Plan Switch to keflex x 5 days Lotromin cream to perineum Urology eval as outpt Kenrick CASAS
--- NOTE | 2016-08-27 14:31 | PN ---
Progress Note (short form) - Note Progress Note: gross hematuria r/o recurrent uti h/o dvt on a/c discussed with ID Dr Choudhary Current Medications Alprazolam (Xanax -) 0.25 mg PO DAILY PRN PRN Reason: ANXIETY Artificial Tears (Artificial Tears) 2 drop OU BID [facility] Last Admin: 08/27/16 09:12 Dose: 2 drop Ascorbic Acid (Vitamin C -) 500 mg PO DAILY [facility] Last Admin: 08/27/16 09:13 Dose: 500 mg Bethanechol Chloride (Urecholine -) 50 mg PO TID [facility] Last Admin: 08/27/16 14:17 Dose: 50 mg Calcium Carbonate/Cholecalciferol (Os-Carlos 500+D -) 1 tab PO BID [facility] Last Admin: 08/27/16 09:17 Dose: Not Given Gabapentin (Neurontin -) 300 mg PO BID@0600,1400 [facility] Last Admin: 08/27/16 14:17 Dose: 300 mg Gabapentin (Neurontin -) 600 mg PO [facility] Last Admin: 08/26/16 21:41 Dose: 600 mg Glimepiride (Amaryl -) 2 mg PO DAILY [facility] Last Admin: 08/27/16 11:52 Dose: 2 mg Hydrochlorothiazide (Hctz -) 25 mg PO DAILY [facility] Last Admin: 08/27/16 09:13 Dose: 25 mg Ceftriaxone Sodium (Rocephin 1gm Ivpb (Pre-Docked)) 50 mls @ 100 mls/hr IVPB [facility] Last Admin: 08/26/16 21:41 Dose: 100 mls/hr Insulin Aspart (Novolog Vial) 4 units SQ DAILY@1700 [facility] Last Admin: 08/26/16 18:08 Dose: Not Given Lisinopril (Prinivil) 5 mg PO DAILY [facility] Last Admin: 08/27/16 09:14 Dose: 5 mg Miconazole Nitrate (Monistat Topical Cream -) 1 applic TP BID [facility] Last Admin: 08/27/16 09:15 Dose: 1 applic Multi-Ingredient Ointment (Zinc Oxide 20% Topical Oint) 0 gm NR TID [facility] Last Admin: 08/27/16 14:17 Dose: 1 applic Pantoprazole Sodium (Protonix -) 20 mg PO DAILY [facility] Last Admin: 08/27/16 09:14 Dose: 20 mg Polyethylene Glycol (Miralax (For Daily Use) -) 17 gm PO HS [facility] Last Admin: 08/26/16 21:41 Dose: 17 gm Psyllium Hydrophilic Mucilloid (Metamucil (Sugar-Free) -) 5.85 gm PO DAILY [facility] Last Admin: 08/27/16 09:15 Dose: Not Given Sertraline HCl (Zoloft -) 50 mg PO DAILY [facility] Last Admin: 08/27/16 09:13 Dose: 50 mg Simethicone (Mylicon -) 80 mg PO Q4H PRN PRN Reason: GAS Sitagliptin Phosphate (Januvia -) 25 mg PO DAILY@0700 [facility] Last Admin: 08/27/16 06:43 Dose: 25 mg Tramadol HCl (Ultram -) 50 mg PO Q6H PRN PRN Reason: PAIN Warfarin Sodium (Coumadin -) 4 mg PO DAILY@1800 [facility] Last Admin: 08/26/16 18:14 Dose: Not Given Last Vital Signs Temp Pulse Resp BP Pulse Ox 98.0 F 74 20 150/68 98 08/27/16 09:00 08/27/16 09:00 08/27/16 09:00 08/27/16 09:00 08/27/16 09:00 CBC, BMP 08/27/16 06:45 08/26/16 01:26 IMP hematuria no sig hydronephrosis H/o DVT unclear date Plan- d/c ca suppl- pt refuses ("constipation") d/c
--- NOTE | 2016-08-27 14:54 | CONSULT ---
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: Other (Spinal stenosis) Cardio/Vascular: Yes: HTN Hepatobiliary: Yes: Cholecystitis (s/p cholecystectomy in February 2014) Endocrine: Yes: Diabetes Mellitus - Past Surgical History Past Surgical History: Yes: Cholecystectomy - Alcohol/Substance Use Hx Alcohol Use: No - Smoking History Smoking history: Never smoked Have you smoked in the past 12 months: No Home Medications - Allergies Allergies/Adverse Reactions: Allergies Allergy/AdvReac Type Severity Reaction Status Date / Time codeine Allergy Verified 08/25/16 21:45 - Home Medications Home Medications: Ambulatory Orders Alprazolam [Xanax Xr] 0.5 mg PO DAILY 06/18/16 Alprazolam [Xanax] 0.25 mg PO DAILY PRN 06/18/16 Ascorbic Acid [Vitamin C] 500 mg PO DAILY 06/18/16 Bethanechol Chloride [Urecholine] 50 mg PO TID 06/18/16 Calcium Carbonate/Vitamin D3 [Oyster Shell 500-Vit D3 200 Tb] 1 each PO BID Gabapentin 300 mg PO BID 06/18/16 Gabapentin 600 mg PO DAILY 06/18/16 Glimepiride 2 mg PO DAILY 06/18/16 Hydrochlorothiazide [Hctz -] 25 mg PO DAILY 06/18/16 Insulin Aspart [Novolog] 4 unit SQ AC 06/18/16 Linagliptin [Tradjenta] 5 mg PO DAILY 06/18/16 Lisinopril 5 mg PO DAILY 06/18/16 Miconazole Nitrate [Micatin] 15 gm TP BID 06/18/16 Omeprazole 20 mg PO DAILY 06/18/16 Polyethylene Glycol 3350 [Miralax (For Daily Use) -] 17 gm PO HS 06/18/16 Propylene Glycol/Peg 400/Pf [Systane 0.3-0.4% Eye Drops] 2 drop OU BID 06/18/16 Sertraline HCl 50 mg PO DAILY 06/18/16 Simethicone 80 mg PO Q4H PRN 06/18/16 Tramadol HCl 50 mg PO Q6H PRN 06/18/16 Warfarin Sodium 4 mg PO DAILY 06/18/16 Zinc Oxide 20% Topical Oint 454 gm NR ASDIR 06/18/16 Magnesium Hydrox 2400MG/30Ml [Milk of Magnesia -] 30 ml PO DAILY PRN 08/26/16 Psyllium Seed/Aspartame [Natural Fiber Powder] 3.4 gm PO BID 08/26/16 Physical Exam Vital Signs: Vital Signs Temperature 98.0 F 08/27/16 09:00 Pulse Rate 74 08/27/16 09:00 Respiratory Rate 20 08/27/16 09:00 Blood Pressure 150/68 08/27/16 09:00 O2 Sat by Pulse Oximetry (%) 98 08/27/16 09:00 Labs: CBC, BMP 08/27/16 06:45 Assessment/Plan Vascular Surgery The patient is a 75 year old female with a PMH of HTN, HLD, DVT, diabetes, arthritis, UTIs, neuropathy bilateral lower extremities, and spinal stenosis presented to the ED today complaining of painless vaginal bleeding that has occurred on and off for several weeks. Today the patient noted her diaper was more and more stained with blood. She also reports frequent UTIs and dysuria. She was examined [facility] and they found bleeding in the vaginal region. Denies: Nausea, vomiting, diarrhea, abdominal pain, fever and chills Allergies: Codeine Family History: Heart disease, diabetes PCP: Dr. Dipti Gutierrez <Debra Hatfield - Last Filed: 08/26/16 05:20> <Linette Marc - Last Filed: 08/26/16 06:45> - General Chief Complaint: Vaginal Bleeding Stated Complaint: VAGINAL BLEEDING Time Seen by Provider: 08/25/16 22:32 Past History - Past Medical History Diabetes: Yes HTN: Yes Suicide Attempt (Hx): No - Surgical History Cholecystectomy: Yes - Family Disease History Family Disease History: Diabetes: Father, Heart Disease: Father - Immunization History Immunization Up to Date: Yes - Psycho/Social/Smoking Cessation Hx Anxiety: No Suicidal Ideation: No Smoking History: Never smoked Have you smoked in the past 12 months: No Hx Alcohol Use: No Drug/Substance Use Hx: No Substance Use Type: None Hx Substance Use Treatment: No <Grey Callahan - Last Filed: 08/26/16 05:01> <Debra Hatfield - Last Filed: 08/26/16 05:20> <Linette Marc - Last Filed: 08/26/16 06:45> - Past Medical History Allergies/Adverse Reactions: Allergies Allergy/AdvReac Type Severity Reaction Status Date / Time codeine Allergy Verified 08/25/16 21:45 Home Medications: Ambulatory Orders Alprazolam [Xanax Xr] 0.5 mg PO DAILY 06/18/16 Alprazolam [Xanax] 0.25 mg PO DAILY PRN 06/18/16 Ascorbic Acid [Vitamin C] 500 mg PO DAILY 06/18/16 Bethanechol Chloride [Urecholine] 50 mg PO TID 06/18/16 Calcium Carbonate/Vitamin D3 [Oyster Shell 500-Vit D3 200 Tb] 1 each PO BID Gabapentin 300 mg PO BID 06/18/16 Gabapentin 600 mg PO DAILY 06/18/16 Glimepiride 2 mg PO DAILY 06/18/16 Hydrochlorothiazide [Hctz -] 25 mg PO DAILY 06/18/16 Insulin Aspart [Novolog] 4 unit SQ HS 06/18/16 Linagliptin [Tradjenta] 5 mg PO DAILY 06/18/16 Lisinopril 5 mg PO DAILY 06/18/16 Miconazole Nitrate [Micatin] 15 gm TP BID 06/18/16 Omeprazole 20 mg PO DAILY 06/18/16 Polyethylene Glycol 3350 [Miralax (For Daily Use) -] 17 gm PO HS 06/18/16 Propylene Glycol/Peg 400/Pf [Systane 0.3-0.4% Eye Drops] 2 drop OU BID 06/18/16 Sertraline HCl 50 mg PO DAILY 06/18/16 Simethicone 80 mg PO Q4H PRN 06/18/16 Tramadol HCl 50 mg PO Q6H PRN 06/18/16 Warfarin Sodium 4 mg PO DAILY 06/18/16 Zinc Oxide 20% Topical Oint 454 gm NR ASDIR 06/18/16 PE Head - NC/AT Lung - CTA heart - RRR abd - soft,nt,nd ext -- soft,warm, palapable pulses. A/P Bilateral DVT in 02/2014. Pt has been on coumadin until now. We can discontinue coumadin now since she has received adequate treatment of AC for a year. Medical management. Thanks for the consult. Marcelo Jamison DO
[2016-08-27 16:13] LABS: INR 1.67 (0.82-1.09); PROTHROMBIN TIME (PATIENT) 18.6 SEC (9.98-11.88)
[2016-08-27] MEDS: INSULIN (NOVOLOG) ASPART 100 UNITS/ML 10ML VIAL SQ SCH (17:58)
[2016-08-27] MEDS: POLYETHYLENE GLYCOL 3350 119 GM BTL PO SCH (21:31)
[2016-08-27] MEDS: CEFTRIAXONE 50 ML IVPB SCH (21:32)
[2016-08-27] MEDS ORDERED: PSYLLIUM 5.85 GM PACKET PO SCH (22:00)
[2016-08-28] MEDS: sitaGLIPtin PHOSPHATE 25 MG TABLET (FP) PO SCH (07:01)
[2016-08-28] MEDS: GABAPENTIN 300 MG CAPSULE (FP) PO SCH ×2 (07:01→15:24)
[2016-08-28] MEDS: BETHANECHOL CHLORIDE 25 MG TABLET PO SCH ×2 (07:02→15:24)
[2016-08-28] MEDS: ZINC OXIDE 20% TOPICAL OINTMENT 454 GM JAR NR SCH ×2 (07:02→15:24)
[2016-08-28 07:44] LABS: MCH 25.4 pg (25.7-33.7); MEAN CELL VOLUME 79.4 fl (80-96); MEAN PLT VOLUME 8.5 fl (7.5-11.1); PLATELET COUNT 189 K/MM3 (134-434); RDW 16.8 % (11.6-15.6); WHITE BLOOD COUNT 5.1 K/mm3 (4.0-10.0)
[2016-08-28 08:11] LABS: ALBUMIN 2.8 g/dl (3.4-5.0); CALCIUM 8.4 mg/dL (8.5-10.1); CREATININE 1.2 mg/dL (0.55-1.02)
[2016-08-28 08:12] LABS: BILIRUBIN,TOTAL 0.4 mg/dL (0.2-1.0); TOT PROT 6.4 g/dl (6.4-8.2)
[2016-08-28] MEDS ORDERED: PT OWN MED DRAWER 7, Y5N ONE ×3 (09:52→15:23)
[2016-08-28] MEDS: HYDROCHLOROTHIAZIDE 25 MG TABLET (FP) PO SCH (10:01)
[2016-08-28] MEDS: SERTRALINE HCL 50 MG TABLET (FP) PO SCH (10:01)
[2016-08-28] MEDS: GLIMEPIRIDE 2 MG TABLET (FP) PO SCH (10:01)
[2016-08-28] MEDS: LISINOPRIL 5 MG TABLET (FP) PO SCH (10:01)
[2016-08-28] MEDS: PANTOPRAZOLE 20 MG TABLET (FP) PO SCH (10:01)
[2016-08-28] MEDS: ASCORBIC ACID 500 MG TABLET (FP) PO SCH (10:01)
[2016-08-28] MEDS: MICONAZOLE NITRATE 14 GM/TUBE TUBE TP SCH (10:02)
[2016-08-28] MEDS: ARTIFICIAL TEARS (POLYVINYL ALCOHOL 1.4%) OPTH DROPS OU SCH (10:09)
--- NOTE | 2016-08-28 14:49 | DS ---
Physical Examination Vital Signs: Vital Signs Temperature 97.6 F 08/28/16 09:15 Pulse Rate 76 08/28/16 09:15 Respiratory Rate 20 08/28/16 09:15 Blood Pressure 132/65 08/28/16 09:15 O2 Sat by Pulse Oximetry (%) 97 08/28/16 09:20 Constitutional: Yes: No Distress, Calm, Obese Eyes: Yes: WNL, Conjunctiva Clear, EOM Intact HENT: Yes: WNL, Atraumatic, Normocephalic Neck: Yes: WNL, Supple, Trachea Midline Cardiovascular: Yes: WNL, Regular Rate and Rhythm Respiratory: Yes: WNL, Regular, CTA Bilaterally Gastrointestinal: Yes: WNL, Normal Bowel Sounds Musculoskeletal: Yes: WNL Extremities: Yes: WNL Edema: No Integumentary: Yes: WNL Neurological: Yes: WNL, Alert, Oriented ...Motor Strength: WNL Psychiatric: Yes: WNL Labs: CBC, BMP 08/28/16 06:00 08/28/16 06:00 Discharge Summary Reason For Visit: UTI Current Active Problems Hematuria (Acute) UTI (lower urinary tract infection) (Acute) Hospital Course: transferred from half-way for possible bleeding per vagina in er found to have hematuria no blood seen in vaginal exam she has recurrent uti and h/o hydronephrosis treated empirically for recurrent uti seen by JOHNIE silverio urine cleared no more bleeding noted she was on coumadin for jose dvt from february 2014 seen by vascular surgery she has been treated long enough for the dvt recommends d/c coumadin stable enough for return to [facility] today stop coumadin gu follow up in [facility] - Instructions Referrals: Dipti Gutierrez MD [Primary Care Provider] - [facility] - Home Medications Comprehensive Discharge Medication List: Ambulatory Orders Alprazolam [Xanax Xr] 0.5 mg PO DAILY 06/18/16 Alprazolam [Xanax] 0.25 mg PO DAILY PRN 06/18/16 Ascorbic Acid [Vitamin C] 500 mg PO DAILY 06/18/16 Bethanechol Chloride [Urecholine] 50 mg PO TID 06/18/16 Calcium Carbonate/Vitamin D3 [Oyster Shell 500-Vit D3 200 Tb] 1 each PO BID Gabapentin 300 mg PO BID 06/18/16 Gabapentin 600 mg PO DAILY 06/18/16 Glimepiride 2 mg PO DAILY 06/18/16 Hydrochlorothiazide [Hctz -] 25 mg PO DAILY 06/18/16 Insulin Aspart [Novolog Flexpen] 4 unit SQ AC 06/18/16 Linagliptin [Tradjenta] 5 mg PO DAILY 06/18/16 Lisinopril 5 mg PO DAILY 06/18/16 Miconazole Nitrate [Micatin] 15 gm TP BID 06/18/16 Omeprazole 20 mg PO DAILY 06/18/16 Polyethylene Glycol 3350 [Miralax 119 gm Btl -] 17 gm PO HS 06/18/16 Propylene Glycol/Peg 400/Pf [Systane 0.3-0.4% Eye Drops] 2 drop OU BID 06/18/16 Sertraline HCl 50 mg PO DAILY 06/18/16 Simethicone 80 mg PO Q4H PRN 06/18/16 Tramadol HCl 50 mg PO Q6H PRN 06/18/16 Zinc Oxide 20% Topical Oint 454 gm NR ASDIR 06/18/16 Magnesium Hydrox 2400MG/30Ml [Milk of Magnesia -] 30 ml PO DAILY PRN 08/26/16 Psyllium Seed/Aspartame [Natural Fiber Powder] 3.4 gm PO BID 08/26/16
[2016-08-28 15:23] VITALS: BP 138/60; PULSE 73; TEMP 98.6
[2016-08-28 15:29] LABS: INR 1.37 (0.82-1.09); PROTHROMBIN TIME (PATIENT) 15.2 SEC (9.98-11.88)
[2016-08-28] MEDS: INSULIN (NOVOLOG) ASPART 100 UNITS/ML 10ML VIAL SQ SCH (16:50)
== END 2016-08-28 18:01 | DRG 690 ==
LOC: JER 21:39 → JERBED 08-26 05:06 → J5S 08-26 17:15
PROVIDERS: ADMIT Internal Medicine Nephrology; ATTEND Internal Medicine Nephrology
DX: N39.0 Urinary tract infection, site not specified (principal); Z68.42 Body mass index [BMI] 45.0-49.9, adult; B96.89 Other specified bacterial agents as the cause of diseases classified elsewhere; R31.0 Gross hematuria; I10 Essential (primary) hypertension; M48.00 Spinal stenosis, site unspecified; E11.42 Type 2 diabetes mellitus with diabetic polyneuropathy; Z86.718 Personal history of other venous thrombosis and embolism; Z79.01 Long term (current) use of anticoagulants; M47.9 Spondylosis, unspecified; K59.00 Constipation, unspecified; K21.9 Gastro-esophageal reflux disease without esophagitis; R32 Unspecified urinary incontinence; Z79.4 Long term (current) use of insulin; E66.9 Obesity, unspecified
CPT/HCPCS: 36415; 71010-TC; 76775-TC; 76856-TC; 80053; 81003; 81015; 85025; 85027; 85610; 87040; 87086; 87186; 93005; 93010; 97116-GP; 97163-GP; 99285-25

== ENCOUNTER 2017-08-16 11:49 | Inpatient (IN) | payer OTHER ==
[2017-08-16 12:16] VITALS: BMI 40.4
--- NOTE | 2017-08-16 12:23 | PDOC ---
History of Present Illness - General Chief Complaint: Injury Stated Complaint: FALL Time Seen by Provider: 08/16/17 12:03 History Source: Patient, EMS Exam Limitations: No Limitations - History of Present Illness Initial Comments: 08/16/17 12:06 The patient is a 76F with a PMH of HTN, HLD, DVT, diabetes, arthritis, UTIs, neuropathy bilateral lower extremities, and spinal stenosis who presents to the ED after sustaining a fall from her bed. The patient states that she was sleeping and awoke to herself hitting the ground. She states that her L knee hit the ground and she has acute pain. She denies any CP, SOB, nausea, vomiting , new onset numbness, tingling, weakness anywhere. She denies any of these symptoms before and after the fall. She did not hit her head and had no LOC. She is not on any blood thinners. Past History - Past Medical History Allergies/Adverse Reactions: Allergies Allergy/AdvReac Type Severity Reaction Status Date / Time codeine Allergy Verified 08/16/17 12:14 Home Medications: Ambulatory Orders Alprazolam [Xanax Xr] 0.5 mg PO DAILY 06/18/16 Bethanechol Chloride [Urecholine] 50 mg PO TID 06/18/16 Gabapentin 300 mg PO DAILY 06/18/16 Gabapentin 600 mg PO BID 06/18/16 Polyethylene Glycol 3350 [Miralax 119 gm Btl -] 17 gm PO HS 06/18/16 Propylene Glycol/Peg 400/Pf [Systane 0.3-0.4% Eye Drops] 2 drop OU BID 06/18/16 Sertraline HCl 50 mg PO DAILY 06/18/16 Simethicone 80 mg PO Q4H PRN 06/18/16 Zinc Oxide 20% Topical Oint 454 gm NR ASDIR 06/18/16 Magnesium Hydrox 2400MG/30Ml [Milk of Magnesia -] 30 ml PO DAILY PRN 08/26/16 Acetaminophen 650 mg PO QID 08/16/17 Acetaminophen [Tylenol] 325 mg PO QID 08/16/17 Bethanechol Chloride [Urecholine] 50 mg PO TID 08/16/17 Calcium Carbonate/Vitamin D3 [Calcium 500-Vit D3 600 Tablet] 1 tab PO DAILY Liraglutide [Victoza -] 0.3 ml SCJ DAILY 08/16/17 Liraglutide [Victoza -] 1.8 mg SQ DAILY 08/16/17 Phenylephrine 0.25%/Starch [Anusol Suppository -] 25 mg [place] BID 08/16/17 Diabetes: Yes HTN: Yes - Surgical History Cholecystectomy: Yes - Family Disease History Family Disease History: Diabetes: Father, Heart Disease: Father - Immunization History Immunization Up to Date: Yes - Suicide/Smoking/Psychosocial Hx Smoking History: Never smoked Have you smoked in the past 12 months: No Hx Alcohol Use: No Drug/Substance Use Hx: No Substance Use Type: None Hx Substance Use Treatment: No Review of Systems - Review of Systems Able to Perform ROS?: Yes Comments:: 08/16/17 12:30 GENERAL/CONSTITUTIONAL: No fever or chills. No weakness. HEAD, EYES, EARS, NOSE AND THROAT: No change in vision. No ear pain or discharge. No sore throat. GASTROINTESTINAL: No nausea, vomiting, diarrhea, constipation, or abdominal pain. GENITOURINARY: No dysuria, frequency, hematuria, or change in urination. CARDIOVASCULAR: No chest pain, palpitations, or lightheadedness. RESPIRATORY: No cough, wheezing, shortness of breath, or hemoptysis. MUSCULOSKELETAL: Positive for proximal knee pain and swelling. No neck or back pain. SKIN: No rash or lesions. NEUROLOGIC: No headache, numbness, tingling, weakness, loss of consciousness, or change in strength/sensation. ENDOCRINE: No increased thirst. No abnormal weight change. HEMATOLOGIC/LYMPHATIC: No anemia, easy bleeding, or history of blood clots. ALLERGIC/IMMUNOLOGIC: No hives or skin allergy. Is the patient limited Salvadorean proficient: No *Physical Exam - Physical Exam Comments: 08/16/17 12:33 GENERAL: Well developed, well nourished. Awake and alert. No acute distress. HEENT: Normocephalic, atraumatic. Hearing grossly normal. Moist mucous membranes. NECK: Supple. Full ROM. No JVD. CARDIOVASCULAR: Regular rate and rhythm. No murmurs, rubs, or gallops. Distal pulses are 2+ and symmetric. PULMONARY: No evidence of respiratory distress. Lungs clear to auscultation bilaterally. No wheezing, rales or rhonchi. ABDOMINAL: Soft. Non-tender. Non-distended. No rebound or guarding. No organomegaly. Normoactive bowel sounds. MUSCULOSKELETAL: Tenderness to palpation over distal femur and proximal knee. Large swelling present. No bruising. EXTREMITIES: No cyanosis. No clubbing. No edema. No calf tenderness. SKIN: Warm and dry. Normal capillary refill. No rashes. No jaundice. NEUROLOGICAL: Alert, awake, appropriate. Cranial nerves 2-12 intact. At baseline , does not have motor or sensation in L foot, pulses intact. PSYCHIATRIC: Cooperative. Good eye contact. Appropriate mood and affect. ED Treatment Course - LABORATORY CBC & Chemistry Diagram: 08/16/17 14:20 08/16/17 14:20 - RADIOLOGY Radiology Studies Ordered: Category Date Time Status FEMUR-LEFT [RAD] Stat Radiology 08/16/17 12:03 Ordered HIP & PELVIS-LEFT [RAD] Stat Radiology 08/16/17 12:03 Ordered KNEE 3 POS-LEFT [RAD] Stat Radiology 08/16/17 12:03 Ordered Medical Decision Making - Medical Decision Making 08/16/17 12:42 The patient is a 76F with a PMH of spinal stenosis affecting her L foot who presents to the ED after falling on her L leg while rolling out of bed. I have a low suspicion for anything other than a mechanical fall based on history, vitals, and physical. I have ordered imaging of her L leg and will reassess when labs/imaging return. 08/16/17 13:13 XR indicates displaced distal femur fracture. Ortho (Dr. Monreal) has been paged. 08/16/17 13:21 I have spoken with her daughter, Rajni, and informed her of the news about her mother. I have paged Dr. Middleton who is covering for Pily. 08/16/17 15:22 Dr. Middleton accepts admission for Dr. Nascimento to a med/surg bed. Patient is stable. 08/16/17 15:28 Dr. Monreal is requesting a CT of the fx. Will place order. 08/16/17 18:23 Per RN, patient vomited. QT WNL. Will order 4 zofran. *DC/Admit/Observation/Transfer Diagnosis at time of Disposition: Femur fracture Qualifiers: Encounter type: initial encounter Femur location: distal Fracture type: closed Fracture morphology: other fracture Laterality: left Qualified Code(s): S72.492A - Other fracture of lower end of left femur, initial encounter for closed fracture - Discharge Dispostion Condition at time of disposition: Stable Admit: Yes - Referrals - Patient Instructions - Post Discharge Activity
--- NOTE | 2017-08-16 13:18 | PDOC ---
Attending Attestation - Resident Resident Name: Reji Hurt - ED Attending Attestation I have performed the following: I have examined & evaluated the patient, The case was reviewed & discussed with the resident, I agree w/resident's findings & plan, Exceptions are as noted - HPI HPI: 76 yo F history HTN, HL, DVT, DM, arthritis, UTI, BLE neuropathy, spinal stenosis presents s/p fall from bed. She states that she was not positioned correctly in bed and rolled out by accident. She hit her left knee on the ground and has been unable to stand since. If she attempts to bend or twist her leg she gets severe pain to the distal thigh. No LOC, no head injury, no blood thinners. - Physicial Exam PE: GENERAL: Awake, alert, and fully oriented, in no acute distress HEAD: No signs of trauma EYES: PERRLA, EOMI, sclera anicteric, conjunctiva clear ENT: Auricles normal inspection, hearing grossly normal, nares patent, oropharynx clear without exudates. Moist mucosa NECK: Normal ROM, supple, no lymphadenopathy, JVD, or masses LUNGS: Breath sounds equal, clear to auscultation bilaterally. No wheezes, and no crackles HEART: Regular rate and rhythm, normal S1 and S2, no murmurs, rubs or gallops ABDOMEN: Soft, nontender, normoactive bowel sounds. No guarding, no rebound. No masses EXTREMITIES: LLE externally rotated and shortened. With tenderness over distal femur, just above the knee. RLE FROM. Remainder of extremities with normal range of motion, no edema. No clubbing or cyanosis. No cords, erythema. NEUROLOGICAL: Cranial nerves II through XII grossly intact. Normal speech. Gait not tested due to nature of complaint. SKIN: Warm, Dry, normal turgor, no rashes or lesions noted. - Medical Decision Making Pt presents with L distal femur fracture s/p fall. She normally ambulates with a walker for assistance. D/w ortho. Will admit for further management.
[2017-08-16 14:28] LABS: BASO % 0.4 % (0-2.0); EOS % 2.1 % (0-4.5); HEMATOCRIT 32.7 % (32.4-45.2); HEMOGLOBIN 10.2 GM/dL (10.7-15.3); LYMPH % 18.2 % (8-40); MCH 25.3 pg (25.7-33.7); MCHC 31.2 g/dl (32.0-36.0); MEAN PLT VOLUME 8.6 fl (7.5-11.1); MONO % 7.6 % (3.8-10.2); NEUT % 71.7 % (42.8-82.8); PLATELET COUNT 190 K/MM3 (134-434); RBC 4.03 M/mm3 (3.60-5.2); WHITE BLOOD COUNT 6.7 K/mm3 (4.0-10.0)
[2017-08-16 14:44] LABS: INR 1.12 (0.82-1.09); PROTHROMBIN TIME (PATIENT) 12.6 SEC (9.98-11.88)
[2017-08-16 14:51] LABS: ALBUMIN 2.7 g/dl (3.4-5.0); ALK PHOS 81 U/L (45-117); ANION GAP 7 (8-16); BILIRUBIN,TOTAL 0.3 mg/dL (0.2-1.0); BLOOD UREA NITROGEN 20 mg/dL (7-18); CALCIUM 8.4 mg/dL (8.5-10.1); CHLORIDE 104 mmol/L (98-107); CO2 29 mmol/L (21-32); CREATININE 1.4 mg/dL (0.55-1.02); GLUCOSE,RANDOM 116 mg/dL (74-106); POTASSIUM 3.8 mmol/L (3.5-5.1); SGOT/AST 26 U/L (15-37); SGPT/ALT 27 U/L (12-78); SODIUM 140 mmol/L (136-145); TOT PROT 6.4 g/dl (6.4-8.2)
[2017-08-16] MEDS ORDERED: MAGNESIUM HYDROX 2400MG/30ML ORAL SUSPENSION 30 ML CUP PO ONE (15:22)
[2017-08-16] MEDS ORDERED: morphine CARPU-JECT 2 MG/1 ML DISP.SYRIN ONE ×2 (16:01→22:17)
[2017-08-16] MEDS ORDERED: MAG HYDROX/AL HYDROX/SIMETH 30 ML UNIT-DOSE CUP ONE (16:01)
[2017-08-16] MEDS ORDERED: morphine CARPU-JECT 4 MG/1 ML DISP.SYRIN IVPUSH ONE (16:03)
[2017-08-16] MEDS ORDERED: ONDANSETRON 4 MG/2 ML VIAL IVPUSH ONE (18:22)
[2017-08-16] MEDS ORDERED: ONDANSETRON 4 MG/2 ML VIAL ONE (18:30)
[2017-08-16] MEDS ORDERED: morphine CARPU-JECT 2 MG/1 ML DISP.SYRIN IVPUSH ONE (21:52)
[2017-08-16] MEDS ORDERED: morphine CARPU-JECT 10 MG/1 ML DISP.SYRIN IVPUSH PRN (22:38)
[2017-08-16] MEDS ORDERED: ACETAMINOPHEN 325 MG TABLET (FP) PO PRN (22:39)
[2017-08-16] MEDS ORDERED: oxyCODONE HCL 5 MG TABLET PO PRN (22:39)
[2017-08-17] MEDS ORDERED: PATIENT'S OWN MEDICATION (NON-FORMULARY) (Zinc Oxide 20% Topical Oint 454 GM) NR SCH ×2 (00:30→23:07)
[2017-08-17] MEDS ORDERED: ACETAMINOPHEN 325 MG TABLET (FP) PO PRN (02:51)
[2017-08-17] MEDS ORDERED: oxyCODONE HCL 5 MG TABLET PO PRN ×2 (02:51→23:07)
[2017-08-17] MEDS: BETHANECHOL CHLORIDE 25 MG TABLET PO SCH ×2 (06:07→13:51)
[2017-08-17] MEDS: LIRAGLUTIDE 0.6 MG/0.1 ML PEN.INJCTR SQ SCH (09:26)
--- NOTE | 2017-08-17 09:51 | CON.ORTH ---
Consult Reason for Consultation:: left femur fracture - History of Present Illness Chief Complaint: left knee pain History of Present Illness: This is a pleasant 76y F who suffered a fall out of bed. She had pain about her left knee and was unable to move after. She complains of pain only in this area. She notes swelling and deformity in the area. There is no change from her baseline neurologic status which includes loss of motion and sensation in the limb. She does have a significant history for bilateral knee osteoarthritis , peripheral neuropathy and spinal stenosis which all affect this lower extremity. 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: Peripheral Neuropathy, Other (Spinal stenosis) Cardio/Vascular: Yes: HTN Hepatobiliary: Yes: Cholecystitis (s/p cholecystectomy in February 2014) Endocrine: Yes: Diabetes Mellitus - Past Surgical History Past Surgical History: Yes: Cholecystectomy - Alcohol/Substance Use Hx Alcohol Use: No History of Substance Use: reports: None - Smoking History Smoking history: Never smoked Have you smoked in the past 12 months: No Home Medications - Allergies Allergies/Adverse Reactions: Allergies Allergy/AdvReac Type Severity Reaction Status Date / Time codeine Allergy Verified 08/16/17 12:14 - Home Medications Home Medications: Ambulatory Orders Alprazolam [Xanax Xr] 0.5 mg PO DAILY 06/18/16 Bethanechol Chloride [Urecholine] 50 mg PO TID 06/18/16 Gabapentin 300 mg PO DAILY 06/18/16 Gabapentin 600 mg PO BID 06/18/16 Polyethylene Glycol 3350 [Miralax 119 gm Btl -] 17 gm PO HS 06/18/16 Propylene Glycol/Peg 400/Pf [Systane 0.3-0.4% Eye Drops] 2 drop OU BID 06/18/16 Sertraline HCl 50 mg PO DAILY 06/18/16 Simethicone 80 mg PO Q4H PRN 06/18/16 Zinc Oxide 20% Topical Oint 454 gm NR ASDIR 06/18/16 Magnesium Hydrox 2400MG/30Ml [Milk of Magnesia -] 30 ml PO DAILY PRN 08/26/16 Acetaminophen 650 mg PO QID 08/16/17 Acetaminophen [Tylenol] 325 mg PO QID 08/16/17 Bethanechol Chloride [Urecholine] 50 mg PO TID 08/16/17 Calcium Carbonate/Vitamin D3 [Calcium 500-Vit D3 600 Tablet] 1 tab PO DAILY Liraglutide [Victoza -] 0.3 ml SCJ DAILY 08/16/17 Liraglutide [Victoza -] 1.8 mg SQ DAILY 08/16/17 Phenylephrine 0.25%/Starch [Anusol Suppository -] 25 mg MT BID 08/16/17 Review of Systems - Review of Systems Constitutional: denies: Chills, Diaphoresis, Fever Eyes: denies: Eye Pain, Photophobia, Recent Change in Vision Neck: denies: Decreased ROM, Pain on Movement, Stiffness Cardiovascular: denies: Chest Pain, Palpitations, Shortness of Breath Gastrointestinal: denies: Abdominal Pain, Constipation, Diarrhea Physical Exam for Ortho Vital Signs: Vital Signs Temperature 99.5 F 08/17/17 06:00 Pulse Rate 110 H 08/17/17 06:00 Respiratory Rate 18 08/17/17 06:00 Blood Pressure 122/72 08/17/17 06:00 O2 Sat by Pulse Oximetry (%) 98 08/16/17 22:45 Constitutional: Yes: Well Nourished, No Distress, Calm, Obese Cardiovascular: Yes: Regular Rate and Rhythm Respiratory: Yes: Regular Gastrointestinal: Yes: Soft. No: Tenderness Extremities: Yes: Other (The left lower extremity demonstrates swelling about the knee. There are no skin lesions. There is external rotation deformity and shortening. There is tenderness with palpation about the knee. The hip is nontender. The ankle is nontender. Distally, her sensation is quite limited to light touch. She has a 1+ DP pulse. There is 1+ edema. She has minimal active use of the left ankle but states this is her normal.) Labs: CBC, BMP 08/16/17 14:20 08/16/17 14:20 INR, PTT INR 1.12 (0.82-1.09) 08/16/17 14:20 Imaging - Results X-ray: Report Reviewed, Image Reviewed (There is a comminuted, displaced fracture of the distal femur. There is no apparent extension into the joint surface.) Cat Scan: Report Reviewed, Image Reviewed
[2017-08-17] MEDS ORDERED: CALCIUM 500MG/VIT-D 200 UNITS COMBO TABLET (FP) PO SCH (10:00)
[2017-08-17] MEDS ORDERED: PATIENT'S OWN MEDICATION (NON-FORMULARY) (Alprazolam [Xanax Xr] 0.5 MG) PO SCH (10:00)
[2017-08-17] MEDS ORDERED: SERTRALINE HCL 50 MG TABLET (FP) PO SCH (10:00)
[2017-08-17] MEDS ORDERED: GABAPENTIN 300 MG CAPSULE (FP) PO SCH (10:00)
--- NOTE | 2017-08-17 12:16 | HP ---
Admitting History and Physical - Primary Care Physician PCP: Gerald Nascimento - Admission Chief Complaint: I fell History of Present Illness: Ms Roth is a pleasant 76 year old female who comes in from [facility] with falls. She says she got up out of bed and sustained a mechanical fall. She denies head trauma, lightheadedness, dizziness, or passing out. She says when she fell she heard her leg snap and came in here. She currently complains of pain and is asking when she will have surgery. She complains of constipation and is asking for a laxative. Aside from this she is without complaint. She denies fevers, chills, chest pain or pressure, shortness of breath, current nausea (she had nausea on presentation but this resolved), diarrhea, difficulty or pain on urination, or previous leg swelling. History Source: Patient Limitations to Obtaining History: No Limitations - Past Medical History GENERAL COUNSEL: Yes: Peripheral Neuropathy, Other (Spinal stenosis) Cardiovascular: Yes: HTN Hepatobiliary: Yes: Cholecystitis (s/p cholecystectomy in February 2014) Heme/Onc: Yes: Anemia Endocrine: Yes: Diabetes Mellitus - Past Surgical History Past Surgical History: Yes: Cholecystectomy - Advance Directives Advance Directives: Yes: Health Care Proxy - Smoking History Smoking history: Never smoked Have you smoked in the past 12 months: No - Alcohol/Substance Use Hx Alcohol Use: No History of Substance Use: reports: None - Social History Usual Living Arrangement: Yes: [facility] ADL: Support Services History of Recent Travel: No Home Medications - Allergies Allergies/Adverse Reactions: Allergies Allergy/AdvReac Type Severity Reaction Status Date / Time codeine Allergy Verified 08/16/17 12:14 - Home Medications Home Medications: Ambulatory Orders Alprazolam [Xanax Xr] 0.5 mg PO DAILY 06/18/16 Bethanechol Chloride [Urecholine] 50 mg PO TID 06/18/16 Gabapentin 300 mg PO DAILY 06/18/16 Gabapentin 600 mg PO BID 06/18/16 Polyethylene Glycol 3350 [Miralax 119 gm Btl -] 17 gm PO HS 06/18/16 Propylene Glycol/Peg 400/Pf [Systane 0.3-0.4% Eye Drops] 2 drop OU BID 06/18/16 Sertraline HCl 50 mg PO DAILY 06/18/16 Simethicone 80 mg PO Q4H PRN 06/18/16 Zinc Oxide 20% Topical Oint 454 gm NR ASDIR 06/18/16 Magnesium Hydrox 2400MG/30Ml [Milk of Magnesia -] 30 ml PO DAILY PRN 08/26/16 Acetaminophen 650 mg PO QID 08/16/17 Acetaminophen [Tylenol] 325 mg PO QID 08/16/17 Bethanechol Chloride [Urecholine] 50 mg PO TID 08/16/17 Calcium Carbonate/Vitamin D3 [Calcium 500-Vit D3 600 Tablet] 1 tab PO DAILY Liraglutide [Victoza -] 0.3 ml SCJ DAILY 08/16/17 Liraglutide [Victoza -] 1.8 mg SQ DAILY 08/16/17 Phenylephrine 0.25%/Starch [Anusol Suppository -] 25 mg TN BID 08/16/17 Family Disease History - Family Disease History Family Disease History: Other: Father (arthritis) Review of Systems Findings/Remarks: Full review of systems obtained, as per HPI and otherwise negative Physical Examination Vital Signs: Vital Signs Temperature 37.5 C 08/17/17 06:00 Pulse Rate 110 H 08/17/17 06:00 Respiratory Rate 18 08/17/17 06:00 Blood Pressure 122/72 08/17/17 06:00 O2 Sat by Pulse Oximetry (%) 98 08/16/17 22:45 Constitutional: Yes: No Distress, Calm, Obese Eyes: Yes: Conjunctiva Clear, EOM Intact, PERRL HENT: Yes: Atraumatic, Normocephalic Cardiovascular: Yes: Regular Rate and Rhythm. No: Gallop, Murmur, Rub Respiratory: Yes: Regular, CTA Bilaterally. No: Rales, Rhonchi, Wheezes Gastrointestinal: Yes: Normal Bowel Sounds, Soft. No: Distention, Tenderness Extremities: Yes: WNL Edema: No Labs: CBC, BMP 08/16/17 14:20 08/16/17 14:20 Imaging - Results Chest X-ray: Report Reviewed, Image Reviewed EKG: Image Reviewed Problem List - Problems (1) Femur fracture Assessment/Plan: -appreciate orthopedic evaluation -recommendation for surgery -patient medically stable for surgery -her weight is concerning for obesity hypoventilation syndrome and difficulty to extubate but she is optimized -cardiology consult for risk stratification Code(s): S72.90XA - UNSP FRACTURE OF UNSP FEMUR, INIT ENCNTR FOR CLOSED FRACTURE Qualifiers: Encounter type: initial encounter Femur location: distal Fracture type: closed Fracture morphology: other fracture Laterality: left Qualified Code (s): S72.492A - Other fracture of lower end of left femur, initial encounter for closed fracture (2) Constipation Assessment/Plan: -will start stool softeners after surgery Code(s): K59.00 - CONSTIPATION, UNSPECIFIED (3) Diabetes Assessment/Plan: -currently npo -FSBS to evaluate for hypoglycemia -on victoza -start diabetic diet after surgery Code(s): E11.9 - TYPE 2 DIABETES MELLITUS WITHOUT COMPLICATIONS (4) CKD (chronic kidney disease) Assessment/Plan: -stable -monitor -hydration while npo Code(s): N18.9 - CHRONIC KIDNEY DISEASE, UNSPECIFIED
[2017-08-17] MEDS ORDERED: SODIUM CHLORIDE 1,000 ML IV SCH ×2 (12:30→23:07)
--- NOTE | 2017-08-17 13:11 | EKG ---
Test Reason : Blood Pressure : / mmHG Vent. Rate : 076 BPM Atrial Rate : 076 BPM P-R Int : 144 ms QRS Dur : 078 ms QT Int : 402 ms P-R-T Axes : 026 006 054 degrees QTc Int : 452 ms NORMAL SINUS RHYTHM CANNOT RULE OUT ANTERIOR INFARCT (CITED ON OR BEFORE 26-AUG-2016) ABNORMAL ECG WHEN COMPARED WITH ECG OF 26-AUG-2016 06:41, NO SIGNIFICANT CHANGE WAS FOUND Confirmed by MD Gallagher Daniel ([id number]) on 08/17/2017 1:11:05 PM Referred By: Confirmed By:Volodymyr Gallagher MD
--- NOTE | 2017-08-17 14:01 | CON.CARD ---
Cardiology Consult (text) - Consultation Consultation Note: cc: pre-op clearance 76 yo with h/o HTN, HLD, IDDM, prior hx of DVT (completed coumadin tx), arthritis, UTI, BLE neuropathy, spinal stenosis here s/p fall. ambulates with wheelchair and walker. overall sedentary, poor functional status. + LE pain. Denies chest pain, sob, palpitations, lightheadedness, syncope, PND, orthopnea or LE edema. + nausea No f/c/s, v/d, cough, congestion, rashes, h/a, visual disturbances. No h/o cad, chf, tia/cva. Pmhx/Pshx: Cholecystectomy Social hx: Never smoked fam hx: denies cardiac history ros: per phi Ambulatory Orders Alprazolam [Xanax Xr] 0.5 mg PO DAILY 06/18/16 Bethanechol Chloride [Urecholine] 50 mg PO TID 06/18/16 Gabapentin 300 mg PO DAILY 06/18/16 Gabapentin 600 mg PO BID 06/18/16 Polyethylene Glycol 3350 [Miralax 119 gm Btl -] 17 gm PO HS 06/18/16 Propylene Glycol/Peg 400/Pf [Systane 0.3-0.4% Eye Drops] 2 drop OU BID 06/18/16 Sertraline HCl 50 mg PO DAILY 06/18/16 Simethicone 80 mg PO Q4H PRN 06/18/16 Zinc Oxide 20% Topical Oint 454 gm NR ASDIR 06/18/16 Magnesium Hydrox 2400MG/30Ml [Milk of Magnesia -] 30 ml PO DAILY PRN 08/26/16 Acetaminophen 650 mg PO QID 08/16/17 Acetaminophen [Tylenol] 325 mg PO QID 08/16/17 Bethanechol Chloride [Urecholine] 50 mg PO TID 08/16/17 Calcium Carbonate/Vitamin D3 [Calcium 500-Vit D3 600 Tablet] 1 tab PO DAILY Liraglutide [Victoza -] 0.3 ml SCJ DAILY 08/16/17 Liraglutide [Victoza -] 1.8 mg SQ DAILY 08/16/17 Phenylephrine 0.25%/Starch [Anusol Suppository -] 25 mg NM BID 08/16/17 Current Medications Acetaminophen (Tylenol -) 650 mg PO QID [facility] Acetaminophen (Tylenol -) 325 mg PO Q4H PRN PRN Reason: PAIN Stop: 08/20/17 02:50 Bethanechol Chloride (Urecholine -) 50 mg PO TID [facility] Last Admin: 08/17/17 13:51 Dose: 50 mg Calcium Carbonate/Cholecalciferol (Os-Carlos 500+D -) 1 tab PO DAILY [facility] Last Admin: 08/17/17 09:26 Dose: 1 tab Gabapentin (Neurontin -) 300 mg PO DAILY [facility] Last Admin: 08/17/17 09:26 Dose: 300 mg Sodium Chloride (Normal Saline -) 1,000 mls @ 42 mls/hr IV ASDIR [facility] Liraglutide (Victoza -) 1.8 mg SQ DAILY [facility] Last Admin: 08/17/17 09:26 Dose: 1.8 mg Morphine Sulfate (Morphine Injection -) 2 mg IVPUSH Q2H PRN Non-Formulary Medication (Alprazolam [Xanax Xr]) 0.5 mg PO DAILY [facility] Non-Formulary Medication (Zinc Oxide 20% Topical Oint) 454 gm NR ASDIR [facility] Last Admin: 08/17/17 05:22 Dose: Not Given Oxycodone HCl (Roxicodone -) 5 mg PO Q4H PRN PRN Reason: PAIN LEVEL 1-5 Sertraline HCl (Zoloft -) 50 mg PO DAILY [facility] Last Admin: 08/17/17 09:26 Dose: 50 mg Vital Signs - 24 hr 08/16/17 08/16/17 08/16/17 17:00 21:38 22:45 Temperature 98.3 F 98.2 F 98.6 F Pulse Rate 106 H Pulse Rate [ 85 96 H Apical] Respiratory 20 18 Rate Blood Pressure 121/58 Blood Pressure 117/64 120/68 [Left Arm] O2 Sat by Pulse 100 98 Oximetry (%) 08/17/17 06:00 Temperature 99.5 F Pulse Rate 110 H Pulse Rate [ Apical] Respiratory 18 Rate Blood Pressure 122/72 Blood Pressure [Left Arm] O2 Sat by Pulse Oximetry (%) Intake & Output 08/15/17 08/16/17 08/17/17 08/18/17 07:59 07:59 07:59 07:59 Intake Total 0 0 Balance 0 0 Weight 203 lb nad, calm obese jvd flat, neck supple ctab, nl effort rrr nl s1, s2 no mrg. nd pmi + bs soft nt nd ext without e/c/c diminshed dp/pt no carotid bruit aaox3 no jaundice, diaphoresis CBC, BMP 08/16/17 14:20 08/16/17 14:20 Laboratory Tests 08/16/17 14:20 INR 1.12 ekg: sr. possible anterior infarct, borderline inferior q waves. similar to priors. cxr: wnl echo 2013: nl lv size/fn. rv not well seen. 1+ ar. mod tr. nl rvsp Assessment/Plan 76 yo with h/o HTN (not on anti-htn regimen), HLD (not on home statin), IDDM, ckd (bline ~ 1.3), prior hx of DVT (completed coumadin tx), arthritis, UTI, BLE neuropathy, spinal stenosis here s/p fall. Pre-op clearance - Stable from Cv perspective. No further testing needed prior to intervention. BAsed on RCRI and poor functional status, patient with low-intermediate estimated juliana-operative CV risk. Patient counsled on risk. - tachycardia likely 2/2 pain/nausea. mgm't per pmd/surg. HTN - stable off meds, con't to monitor juliana-operatively Hl - can evaluate risk/benefit of statin and asa as outpatient. mild ar and mod tr. - can repeat echo as outpatient
[2017-08-17] MEDS ORDERED: BUPIVACAINE HCL/PF 0.5% (5MG/ML) 10 ML VIAL ONE (19:31)
[2017-08-17] MEDS ORDERED: MIDAZOLAM HCL 2 MG/2 ML SINGLE DOSE VIAL ONE ×3 (19:33→21:56)
--- NOTE | 2017-08-17 19:35 | OP ---
Operative Note - Note: Operative Date: 08/17/17 Pre-Operative Diagnosis: left distal femur fracture Operation: left distal femur ORIF Implants: danitza axsos 3 distal femoral plate with locking/nonlocking screws Post-Operative Diagnosis: Same as Pre-op Surgeon: Kuldip Monreal Professor Of Anthropology: Sb Armendariz Anesthesiologist/OPTIMIZATION MANAGER: Ari Forbes Anesthesia: Spinal Estimated Blood Loss (mls): 250 Operative Report Dictated: Yes
[2017-08-17] MEDS ORDERED: ceFAZolin SODIUM 1 GM VIAL IVPB ONE (19:48)
[2017-08-17] MEDS ORDERED: PROMETHAZINE HCL 25 MG/1 ML VIAL IVPUSH PRN (22:42)
[2017-08-17] MEDS ORDERED: LACTATED RINGERS SOLUTION 1,000 ML IV SCH (22:45)
[2017-08-17] MEDS ORDERED: morphine SULFATE 4 MG/ML VIAL IVPUSH PRN (23:07)
[2017-08-17] MEDS: ONDANSETRON 4 MG/2 ML VIAL IVPUSH PRN (23:25)
[2017-08-17] MEDS ORDERED: ONDANSETRON 4 MG/2 ML VIAL ONE (23:27)
[2017-08-17] MEDS ORDERED: MEPERIDINE HCL CARPU-JECT 25 MG/1 ML DISP.SYRIN ONE (23:31)
[2017-08-18] MEDS ORDERED: ACETAMINOPHEN INJECTION 100 ML IVPB ONE (00:06)
[2017-08-18] MEDS: ACETAMINOPHEN 1000 MG/100 ML VIAL (NON FORMULARY) IVPB ONE (00:10)
--- NOTE | 2017-08-18 00:27 | OP ---
DATE OF OPERATION: 08/17/2017 PREOPERATIVE DIAGNOSIS: Left distal femur fracture. POSTOPERATIVE DIAGNOSIS: Left distal femur fracture. PROCEDURE: Left distal femur open reduction internal fixation. SURGEON: Calos Weems MD AGENT: Sb Armendariz PA-C, [facility]. His skillful assistance was necessary for the safe and timely performance of this procedure. Mr. Armendariz was able to help provide positioning, retraction, assist in fracture reduction, as well as insertion and fixation of the hardware. ANESTHESIA: Spinal. POSTOPERATIVE CONDITION: Stable. COMPLICATIONS: None. IMPLANTS: Ashlee AxSOS 3 distal femoral locking plate with 4.5 locking and nonlocking screws. BLOOD LOSS: 250 mL. INDICATIONS: This is a pleasant woman who suffered a fall out of bed. She is shown to have a distal femoral fracture. Her history is notable for preexisting neurologic injury to the limb, which limited her mobility and sensation. We discussed treatment options for this type of fracture including nonoperative care, which was not recommended, which would involve prolonged splinting or bed rest. Her leg is not amenable to casting. This could result in nonunion and likely end with her inability to ambulate. Alternatively, I recommended open reduction internal fixation. This involves insertion of plate and screws in order to restore the proper alignment to the bone. We discussed the postoperative rehabilitation protocol including limited weightbearing afterwards. I reviewed the risks of surgery including bleeding, infection, neurovascular injury, need for further surgery, postoperative pain and stiffness, nonunion, malunion, hardware failure, or cut out. We discussed medical risks including heart attack, stroke, DVT, PE, and . We discussed the use of perioperative DVT and antibiotic prophylaxis. I addressed all of the patient's questions. She voiced understanding and elected to proceed. PROCEDURE: The patient was brought to the operating room where spinal anesthesia was administered. The left lower extremity was then prepped and draped in the usual sterile fashion. Preoperative dose of antibiotic was given and the usual timeout procedure was performed. The incision was now planned out distally over the end of the femur in the anterolateral location. This was carried down through the skin and subcutaneous tissue. Electrocautery was used to maintain hemostasis. Blunt spreading was used to expose the fascia sweta. After exposing the fascia sweta, it became clear at this point that dissection was carried anteriorly and the proximal fragment had button-holed itself and has now extended through the quadriceps anteriorly and now into the subcutaneous fascia. The proper plane through the fascia sweta was identified and incision was made here to expose the distal fragment. This was done in line with its fibers. After exposing the distal fragment, the proximal fragment was reduced into the proper cavity manually. Utilizing a fracture reduction forceps, the fracture was brought into near anatomic alignment. It should be noted that there was significant anterior comminution present. The fracture was now visualized fluoroscopically and fracture reduction was satisfactory. The plate was now chosen. It was placed subperiosteally at the lateral aspect of the femur. The placement was verified fluoroscopically. The plate was held in place distally utilizing a single K-wire. The plate was now fixed onto the bone proximally by making an incision through the skin and inserting a trocar down to the level of the plate. A Whirlybird device was now inserted and this was used to fix the plate down to the bone. At this point, a cortical screw was inserted in the standard fashion in the metaphyseal region to bring down the plate to the bone there. Distally, there were some osteophytes that were preventing the plate from lying directly flat on the bone; however, it was felt that the plate was in good approximation and would adequately maintain fixation of the fracture. Distally, now the plate was fixed utilizing the nonlocking screws by drilling through the trocars, measuring, and then inserting the screws, locking in type of appropriate length. Screw fixation was verified fluoroscopically. The most distal anterior screw was noted to be too long; therefore shortened to a 17-mm screw. Every other hole proximally was filled utilizing locking screws along the shaft utilizing the percutaneous technique. The most proximal screw was used unicortically in order to provide a transition from the high thickness to the lower thickness construct and limited the stress rise at the tip of the plate. Having serial hardware, the entire construct was examined both visually and fluoroscopically now. Both fracture reduction and hardware placement were satisfactory. The wounds were copiously irrigated at this time. The deep tissue was reapproximated using number 1 Vicryl. Superficially it was done with 0 Vicryl. The subcutaneous tissue was approximated using 2-0 Vicryl. The skin was closed using running 3-0 nylon. Sterile dressings were placed. Patient was sent to the recovery room in stable condition. CALOS WEEMS M.D. [id number]
[2017-08-18] MEDS ORDERED: MEPERIDINE HCL CARPU-JECT 25 MG/1 ML DISP.SYRIN IVPUSH ONE (00:30)
[2017-08-18] MEDS: BETHANECHOL CHLORIDE 25 MG TABLET PO SCH ×3 (06:19→22:57)
[2017-08-18] MEDS: CEFAZOLIN 1 GM PUSH 1 GM/10 ML SYRINGE IVPUSH SCH ×2 (06:19→13:41)
[2017-08-18 09:04] LABS: ANION GAP 12 (8-16); BLOOD UREA NITROGEN 16 mg/dL (7-18); CALCIUM 8.2 mg/dL (8.5-10.1); CHLORIDE 102 mmol/L (98-107); CO2 24 mmol/L (21-32); CREATININE 1.2 mg/dL (0.55-1.02); GLUCOSE,RANDOM 115 mg/dL (74-106); PHOSPHOROUS 3.8 mg/dL (2.5-4.9); POTASSIUM 4.3 mmol/L (3.5-5.1); SODIUM 138 mmol/L (136-145)
[2017-08-18 09:13] LABS: BASO % 0.2 % (0-2.0); EOS % 1.5 % (0-4.5); HEMATOCRIT 30.5 % (32.4-45.2); HEMOGLOBIN 9.4 GM/dL (10.7-15.3); LYMPH % 14.1 % (8-40); MCH 25.3 pg (25.7-33.7); MEAN CELL VOLUME 81.6 fl (80-96); MEAN PLT VOLUME 8.9 fl (7.5-11.1); MONO % 5.6 % (3.8-10.2); NEUT % 78.6 % (42.8-82.8); PLATELET COUNT 175 K/MM3 (134-434); RBC 3.74 M/mm3 (3.60-5.2); RDW 16.1 % (11.6-15.6); WHITE BLOOD COUNT 7.1 K/mm3 (4.0-10.0)
[2017-08-18] MEDS ORDERED: PT OWN MED DRAWER 7, Y5N ONE ×2 (09:15→13:38)
[2017-08-18] MEDS: SERTRALINE HCL 50 MG TABLET (FP) PO SCH (09:17)
[2017-08-18] MEDS: GABAPENTIN 300 MG CAPSULE (FP) PO SCH (09:17)
[2017-08-18] MEDS: CALCIUM 500MG/VIT-D 200 UNITS COMBO TABLET (FP) PO SCH ×2 (09:17→22:57)
[2017-08-18] MEDS: LIRAGLUTIDE 0.6 MG/0.1 ML PEN.INJCTR SQ SCH ×2 (09:18→09:19)
[2017-08-18] MEDS: ACETAMINOPHEN 325 MG TABLET (FP) PO PRN (09:23)
--- NOTE | 2017-08-18 09:40 | PN ---
Progress Note (short form) - Note Progress Note: Anesthesia post op note POD#1, S/p left distal femur ORIF under Spinal. Pat seen and examined. VSS. No apparent post anesthesia complications. Signed off.
[2017-08-18] MEDS ORDERED: ACETAMINOPHEN 325 MG TABLET (FP) PO SCH (10:00)
--- NOTE | 2017-08-18 10:09 | PN ---
Progress Note (short form) - Note Progress Note: Pt lying in bed. Minimal pain. Last Vital Signs Temp Pulse Resp BP Pulse Ox 98.1 F 89 18 147/59 100 08/18/17 06:00 08/18/17 06:00 08/18/17 06:00 08/18/17 06:00 08/18/17 02:07 LLE dressings cdi calves soft NT NV exam unchanged, decreased sensation and limited active motion 2+ dp pulse Abnormal Lab Results 08/18/17 08/18/17 07:10 07:10 Hgb 9.4 L Hct 30.5 L MCH 25.3 L MCHC 31.0 L RDW 16.1 H Creatinine 1.2 H Random Glucose 115 H Calcium 8.2 L A/p: POD 1 L femoral ORIF -pain control -DVT proph -oob/rehab -f/u AM cbc tomorrow
--- NOTE | 2017-08-18 12:14 | PN ---
Progress Note, Physician Chief Complaint: Ms Roth says she had pain with PT this am but overall is feeling much better. No cp, sob, n/v. - Current Medication List Current Medications: Active Medications Acetaminophen (Tylenol -) 650 mg PO QID [facility] Acetaminophen (Tylenol -) 650 mg PO Q4H PRN PRN Reason: FEVER OR PAIN Last Admin: 08/18/17 09:23 Dose: 650 mg Bethanechol Chloride (Urecholine -) 50 mg PO TID [facility] Last Admin: 08/18/17 06:19 Dose: 50 mg Calcium Carbonate/Cholecalciferol (Os-Carlos 500+D -) 1 tab PO BID [facility] Last Admin: 08/18/17 09:17 Dose: 1 tab Cefazolin Sodium (Ancef -) 1 gm IVPUSH Q8H [facility] Stop: 08/18/17 14:01 Last Admin: 08/18/17 06:19 Dose: 1 gm Enoxaparin Sodium (Lovenox -) 40 mg SQ DAILY [facility] Fentanyl (Sublimaze Injection -) 25 mcg IVPUSH [id number] PRN PRN Reason: PAIN Gabapentin (Neurontin -) 300 mg PO DAILY [facility] Last Admin: 08/18/17 09:17 Dose: 300 mg Sodium Chloride (Normal Saline -) 1,000 mls @ 42 mls/hr IV ASDIR [facility] Last Admin: 08/18/17 00:10 Dose: 42 mls/hr Liraglutide (Victoza -) 1.8 mg SQ DAILY [facility] Last Admin: 08/18/17 09:19 Dose: 1.8 mg Morphine Sulfate (Morphine Sulfate) 2 mg IVPUSH Q2H PRN Non-Formulary Medication (Alprazolam [Xanax Xr]) 0.5 mg PO DAILY [facility] Non-Formulary Medication (Zinc Oxide 20% Topical Oint) 454 gm NR ASDIR [facility] Ondansetron HCl (Zofran Injection) 4 mg IVPUSH Q6H PRN PRN Reason: NAUSEA AND/OR VOMITING Last Admin: 08/17/17 23:25 Dose: 4 mg Oxycodone HCl (Roxicodone -) 5 mg PO Q4H PRN PRN Reason: PAIN LEVEL 1-5 Promethazine HCl (Phenergan Injection -) 12.5 mg IVPUSH Q6H PRN PRN Reason: NAUSEA-FOR RESCUE AFTER 15 MIN Sertraline HCl (Zoloft -) 50 mg PO DAILY [facility] Last Admin: 08/18/17 09:17 Dose: 50 mg - Objective Vital Signs: Vital Signs Temperature 37.0 C 08/18/17 11:11 Pulse Rate 98 H 08/18/17 11:11 Respiratory Rate 18 08/18/17 11:11 Blood Pressure 154/80 08/18/17 11:11 O2 Sat by Pulse Oximetry (%) 100 08/18/17 11:10 Constitutional: Yes: No Distress, Calm, Obese Cardiovascular: Yes: Regular Rate and Rhythm. No: Gallop, Murmur, Rub Respiratory: Yes: Regular, CTA Bilaterally. No: Rales, Rhonchi, Wheezes Gastrointestinal: Yes: Normal Bowel Sounds, Soft. No: Distention, Tenderness Extremities: Yes: WNL Edema: No Labs: CBC, BMP 08/18/17 07:10 08/18/17 07:10 INR, PTT INR 1.12 (0.82-1.09) 08/16/17 14:20 Problem List - Problems (1) Femur fracture Code(s): S72.90XA - UNSP FRACTURE OF UNSP FEMUR, INIT ENCNTR FOR CLOSED FRACTURE Qualifiers: Encounter type: initial encounter Femur location: distal Fracture type: closed Fracture morphology: other fracture Laterality: left Qualified Code (s): S72.492A - Other fracture of lower end of left femur, initial encounter for closed fracture (2) Constipation Code(s): K59.00 - CONSTIPATION, UNSPECIFIED (3) Diabetes Code(s): E11.9 - TYPE 2 DIABETES MELLITUS WITHOUT COMPLICATIONS (4) CKD (chronic kidney disease) Code(s): N18.9 - CHRONIC KIDNEY DISEASE, UNSPECIFIED Assessment/Plan (1) Femur fracture Assessment/Plan: -s/p surgery -tolerated surgery well -continue PT and on lovenox Code(s): S72.90XA - UNSP FRACTURE OF UNSP FEMUR, INIT ENCNTR FOR CLOSED FRACTURE Qualifiers: Encounter type: initial encounter Femur location: distal Fracture type: closed Fracture morphology: other fracture Laterality: left Qualified Code (s): S72.492A - Other fracture of lower end of left femur, initial encounter for closed fracture (2) Constipation Assessment/Plan: -begin miralax and colace -monitor Code(s): K59.00 - CONSTIPATION, UNSPECIFIED (3) Diabetes Assessment/Plan: -continue victoza -diabetic Code(s): E11.9 - TYPE 2 DIABETES MELLITUS WITHOUT COMPLICATIONS (4) CKD (chronic kidney disease) Assessment/Plan: -stable -monitor Code(s): N18.9 - CHRONIC KIDNEY DISEASE, UNSPECIFIED
[2017-08-18] MEDS ORDERED: ACETAMINOPHEN 325 MG TABLET (FP) PO ONE (19:45)
--- NOTE | 2017-08-18 21:44 | PN ---
Progress Note (short form) - Note Progress Note: cc: pre-op clearance S: + fever this evening. patient feels week. slightly confused. no cp, palps , sob. slight dizziness. + nausea. Current Medications Acetaminophen (Tylenol -) 650 mg PO QID [facility] Acetaminophen (Tylenol -) 650 mg PO Q4H PRN PRN Reason: FEVER OR PAIN Last Admin: 08/18/17 09:23 Dose: 650 mg Bethanechol Chloride (Urecholine -) 50 mg PO TID [facility] Last Admin: 08/18/17 13:41 Dose: 50 mg Calcium Carbonate/Cholecalciferol (Os-Carlos 500+D -) 1 tab PO BID [facility] Last Admin: 08/18/17 09:17 Dose: 1 tab Docusate Sodium (Colace -) 100 mg PO BID [facility] Enoxaparin Sodium (Lovenox -) 40 mg SQ DAILY [facility] Fentanyl (Sublimaze Injection -) 25 mcg IVPUSH [id number] PRN PRN Reason: PAIN Gabapentin (Neurontin -) 300 mg PO DAILY [facility] Last Admin: 08/18/17 09:17 Dose: 300 mg Liraglutide (Victoza -) 1.8 mg SQ DAILY [facility] Last Admin: 08/18/17 09:19 Dose: 1.8 mg Morphine Sulfate (Morphine Sulfate) 2 mg IVPUSH Q2H PRN Non-Formulary Medication (Alprazolam [Xanax Xr]) 0.5 mg PO DAILY [facility] Non-Formulary Medication (Zinc Oxide 20% Topical Oint) 454 gm NR ASDIR [facility] Ondansetron HCl (Zofran Injection) 4 mg IVPUSH Q6H PRN PRN Reason: NAUSEA AND/OR VOMITING Last Admin: 08/17/17 23:25 Dose: 4 mg Oxycodone HCl (Roxicodone -) 5 mg PO Q4H PRN PRN Reason: PAIN LEVEL 1-5 Polyethylene Glycol (Miralax (For Daily Use) -) 17 gm PO BID [facility] Promethazine HCl (Phenergan Injection -) 12.5 mg IVPUSH Q6H PRN PRN Reason: NAUSEA-FOR RESCUE AFTER 15 MIN Sertraline HCl (Zoloft -) 50 mg PO DAILY [facility] Last Admin: 08/18/17 09:17 Dose: 50 mg Vital Signs - 24 hr 08/17/17 08/17/17 08/17/17 22:40 22:55 23:10 Temperature 98.6 F Pulse Rate 98 H 93 H 94 H Respiratory 22 18 16 Rate Blood Pressure 147/69 133/98 121/72 O2 Sat by Pulse 94 L 100 100 Oximetry (%) 08/17/17 08/17/17 08/17/17 23:25 23:40 23:55 Temperature Pulse Rate 95 H 98 H 99 H Respiratory 18 18 16 Rate Blood Pressure 135/87 109/55 108/58 O2 Sat by Pulse 100 100 100 Oximetry (%) 08/18/17 08/18/17 08/18/17 00:00 00:10 00:25 Temperature 99.7 F H 99.8 F H Pulse Rate 102 H 96 H 102 H Respiratory 20 18 17 Rate Blood Pressure 151/62 109/58 108/68 O2 Sat by Pulse 100 100 100 Oximetry (%) 08/18/17 08/18/17 08/18/17 02:07 06:00 11:10 Temperature 98.1 F Pulse Rate 89 Respiratory 17 18 18 Rate Blood Pressure 147/59 O2 Sat by Pulse 100 100 Oximetry (%) 08/18/17 08/18/17 08/18/17 11:11 14:35 16:20 Temperature 98.6 F 98.0 F 102.7 F H Pulse Rate 98 H 82 115 H Respiratory 18 16 18 Rate Blood Pressure 154/80 116/70 188/85 O2 Sat by Pulse Oximetry (%) Intake & Output 08/16/17 08/17/17 08/18/17 08/19/17 07:59 07:59 07:59 07:59 Intake Total 200 1600 300 Output Total 250 Balance 200 1350 300 Weight 203 lb nad, anxious, weak obese jvd flat, neck supple ctab, nl effort rrr nl s1, s2 no mrg. nd pmi + bs soft nt nd ext without e/c/c diminshed dp/pt no carotid bruit alert and oriented but slightly confused today. no jaundice, diaphoresis CBC, BMP 08/18/17 07:10 08/18/17 07:10 ekg: sr. possible anterior infarct, borderline inferior q waves. similar to priors. cxr: wnl echo 2013: nl lv size/fn. rv not well seen. 1+ ar. mod tr. nl rvsp Assessment/Plan 76 yo with h/o HTN (not on anti-htn regimen), HLD (not on home statin), IDDM, ckd (bline ~ 1.3), prior hx of DVT (completed coumadin tx), arthritis, UTI, BLE neuropathy, spinal stenosis here s/p fall. Pre-op clearance - Stable from Cv perspective. No further testing needed prior to intervention. BAsed on RCRI and poor functional status, estimated to have low-intermediate juliana-operative CV risk. Patient counsled on risk. - tachycardia likely 2/2 pain/nausea and now fever. monitor hgb. mgm't per pmd/surg. HTN - labile off meds, con't to monitor Hl - can evaluate risk/benefit of statin and asa as outpatient. mild ar and mod tr. - can repeat echo as outpatient
[2017-08-18] MEDS: ENOXAPARIN NA (PORCINE) 40 MG/0.4 ML DISP.SYRIN SQ SCH (22:57)
[2017-08-18] MEDS: POLYETHYLENE GLYCOL 3350 119 GM BTL PO SCH (22:57)
[2017-08-18] MEDS: DOCUSATE SODIUM 100 MG CAPSULE (FP) PO SCH (22:57)
[2017-08-19] MEDS: BETHANECHOL CHLORIDE 25 MG TABLET PO SCH ×4 (05:37→21:34)
[2017-08-19 08:06] LABS: BASO % 0.3 % (0-2.0); EOS % 1.4 % (0-4.5); HEMATOCRIT 27.8 % (32.4-45.2); HEMOGLOBIN 8.9 GM/dL (10.7-15.3); LYMPH % 15.5 % (8-40); MCH 25.6 pg (25.7-33.7); MCHC 31.9 g/dl (32.0-36.0); MEAN CELL VOLUME 80.3 fl (80-96); MEAN PLT VOLUME 8.9 fl (7.5-11.1); NEUT % 76.8 % (42.8-82.8); PLATELET COUNT 182 K/MM3 (134-434); RBC 3.47 M/mm3 (3.60-5.2); RDW 15.6 % (11.6-15.6); WHITE BLOOD COUNT 7.4 K/mm3 (4.0-10.0)
[2017-08-19 08:19] LABS: ANION GAP 8 (8-16); BLOOD UREA NITROGEN 15 mg/dL (7-18); CALCIUM 8.1 mg/dL (8.5-10.1); CHLORIDE 102 mmol/L (98-107); CO2 27 mmol/L (21-32); CREATININE 1.1 mg/dL (0.55-1.02); GLUCOSE,RANDOM 124 mg/dL (74-106); PHOSPHOROUS 2.9 mg/dL (2.5-4.9); POTASSIUM 4.2 mmol/L (3.5-5.1); SODIUM 137 mmol/L (136-145)
[2017-08-19] MEDS: ACETAMINOPHEN 1000 MG/100 ML VIAL (NON FORMULARY) IVPB ONE (09:25)
[2017-08-19] MEDS ORDERED: PT OWN MED DRAWER 7, Y5N ONE ×2 (09:28→10:19)
[2017-08-19] MEDS: DOCUSATE SODIUM 100 MG CAPSULE (FP) PO SCH ×2 (09:30→21:27)
[2017-08-19] MEDS: GABAPENTIN 300 MG CAPSULE (FP) PO SCH (09:31)
[2017-08-19] MEDS: CALCIUM 500MG/VIT-D 200 UNITS COMBO TABLET (FP) PO SCH ×2 (09:31→21:34)
[2017-08-19] MEDS: POLYETHYLENE GLYCOL 3350 119 GM BTL PO SCH ×2 (09:31→21:27)
[2017-08-19] MEDS: ENOXAPARIN NA (PORCINE) 40 MG/0.4 ML DISP.SYRIN SQ SCH (09:31)
[2017-08-19] MEDS: ACETAMINOPHEN 325 MG TABLET (FP) PO PRN ×2 (09:32→20:47)
[2017-08-19] MEDS: SERTRALINE HCL 50 MG TABLET (FP) PO SCH (09:32)
[2017-08-19] MEDS: LIRAGLUTIDE 0.6 MG/0.1 ML PEN.INJCTR SQ SCH (09:32)
--- NOTE | 2017-08-19 12:26 | PN ---
Progress Note, Physician Chief Complaint: Ms Roth denies cp, sob, n/v. Seen by PT today, complains of pain with PT - Current Medication List Current Medications: Active Medications Acetaminophen (Tylenol -) 650 mg PO QID [facility] Acetaminophen (Tylenol -) 650 mg PO Q4H PRN PRN Reason: FEVER OR PAIN Last Admin: 08/19/17 09:32 Dose: 650 mg Bethanechol Chloride (Urecholine -) 50 mg PO TID [facility] Last Admin: 08/19/17 05:37 Dose: 50 mg Calcium Carbonate/Cholecalciferol (Os-Carlos 500+D -) 1 tab PO BID [facility] Last Admin: 08/19/17 09:31 Dose: 1 tab Docusate Sodium (Colace -) 100 mg PO BID [facility] Last Admin: 08/19/17 09:30 Dose: 100 mg Enoxaparin Sodium (Lovenox -) 40 mg SQ DAILY [facility] Last Admin: 08/19/17 09:31 Dose: 40 mg Fentanyl (Sublimaze Injection -) 25 mcg IVPUSH [id number] PRN PRN Reason: PAIN Gabapentin (Neurontin -) 300 mg PO DAILY [facility] Last Admin: 08/19/17 09:31 Dose: 300 mg Liraglutide (Victoza -) 1.8 mg SQ DAILY [facility] Last Admin: 08/19/17 09:32 Dose: 1.8 mg Morphine Sulfate (Morphine Sulfate) 2 mg IVPUSH Q2H PRN Non-Formulary Medication (Alprazolam [Xanax Xr]) 0.5 mg PO DAILY [facility] Non-Formulary Medication (Zinc Oxide 20% Topical Oint) 454 gm NR ASDIR [facility] Ondansetron HCl (Zofran Injection) 4 mg IVPUSH Q6H PRN PRN Reason: NAUSEA AND/OR VOMITING Last Admin: 08/17/17 23:25 Dose: 4 mg Oxycodone HCl (Roxicodone -) 5 mg PO Q4H PRN PRN Reason: PAIN LEVEL 1-5 Polyethylene Glycol (Miralax (For Daily Use) -) 17 gm PO BID [facility] Last Admin: 08/19/17 09:31 Dose: 17 film Promethazine HCl (Phenergan Injection -) 12.5 mg IVPUSH Q6H PRN PRN Reason: NAUSEA-FOR RESCUE AFTER 15 MIN Sertraline HCl (Zoloft -) 50 mg PO DAILY [facility] Last Admin: 08/19/17 09:32 Dose: 50 mg - Objective Vital Signs: Vital Signs Temperature 36.6 C 08/19/17 09:24 Pulse Rate 90 08/19/17 09:24 Respiratory Rate 20 08/19/17 09:24 Blood Pressure 145/56 08/19/17 09:24 O2 Sat by Pulse Oximetry (%) 100 08/18/17 21:00 Constitutional: Yes: No Distress, Calm, Obese Cardiovascular: Yes: Regular Rate and Rhythm. No: Gallop, Murmur, Rub Respiratory: Yes: Regular, CTA Bilaterally. No: Rales, Rhonchi, Wheezes Gastrointestinal: Yes: Normal Bowel Sounds, Soft. No: Distention, Tenderness Extremities: Yes: WNL Edema: No Labs: CBC, BMP 08/19/17 06:24 08/19/17 06:24 INR, PTT INR 1.12 (0.82-1.09) 08/16/17 14:20 Problem List - Problems (1) Femur fracture Code(s): S72.90XA - UNSP FRACTURE OF UNSP FEMUR, INIT ENCNTR FOR CLOSED FRACTURE Qualifiers: Encounter type: initial encounter Femur location: distal Fracture type: closed Fracture morphology: other fracture Laterality: left Qualified Code (s): S72.492A - Other fracture of lower end of left femur, initial encounter for closed fracture (2) Constipation Code(s): K59.00 - CONSTIPATION, UNSPECIFIED (3) Diabetes Code(s): E11.9 - TYPE 2 DIABETES MELLITUS WITHOUT COMPLICATIONS (4) CKD (chronic kidney disease) Code(s): N18.9 - CHRONIC KIDNEY DISEASE, UNSPECIFIED (5) Fever postop Code(s): R50.82 - POSTPROCEDURAL FEVER Assessment/Plan (1) Femur fracture Assessment/Plan: -s/p surgery -tolerated surgery well -continue PT and on lovenox -begin dispo planning when safe from ortho standpoint Code(s): S72.90XA - UNSP FRACTURE OF UNSP FEMUR, INIT ENCNTR FOR CLOSED FRACTURE Qualifiers: Encounter type: initial encounter Femur location: distal Fracture type: closed Fracture morphology: other fracture Laterality: left Qualified Code (s): S72.492A - Other fracture of lower end of left femur, initial encounter for closed fracture (2) Constipation Assessment/Plan: -continue miralax and colace -bm yesterday Code(s): K59.00 - CONSTIPATION, UNSPECIFIED (3) Diabetes Assessment/Plan: -continue victoza -diabetic Code(s): E11.9 - TYPE 2 DIABETES MELLITUS WITHOUT COMPLICATIONS (4) CKD (chronic kidney disease) Assessment/Plan: -stable -monitor Code(s): N18.9 - CHRONIC KIDNEY DISEASE, UNSPECIFIED (5) Post op fever -patient with fevers within 24 hour of surgery -low suspicion for infection, monitor -encouraged I/S -if does not recur, dispo planning
[2017-08-19] MEDS: ACETAMINOPHEN 325 MG TABLET (FP) PO SCH ×2 (15:36→15:37)
--- NOTE | 2017-08-19 15:37 | PN ---
Progress Note (short form) - Note Progress Note: Pt lying in bed. Sat up with PT. Unable to transfer. Last Vital Signs Temp Pulse Resp BP Pulse Ox 98 F 90 20 145/56 98 08/19/17 09:24 08/19/17 09:24 08/19/17 09:24 08/19/17 09:24 08/19/17 09:00 LLE dressings cdi calves soft NT NV exam unchanged, decreased sensation and limited active motion 2+ dp pulse Abnormal Lab Results 08/19/17 08/19/17 06:24 06:24 RBC 3.47 L Hgb 8.9 L Hct 27.8 L MCH 25.6 L MCHC 31.9 L Creatinine 1.1 H Random Glucose 124 H Calcium 8.1 L A/p: POD 3 L femoral ORIF -pain control -DVT proph -oob/rehab -ok for lift to transfer to chair -post op fever likely due to inflammation/atelectasis, no evidence for op site infection -f/u AM cbc tomorrow
[2017-08-19] MEDS: ONDANSETRON 4 MG/2 ML VIAL IVPUSH PRN (16:53)
[2017-08-19 21:49] LABS: BASO % 0.2 % (0-2.0); EOS % 0.9 % (0-4.5); HEMATOCRIT 25.4 % (32.4-45.2); HEMOGLOBIN 8.2 GM/dL (10.7-15.3); LYMPH % 12.4 % (8-40); MCH 25.7 pg (25.7-33.7); MCHC 32.4 g/dl (32.0-36.0); MEAN CELL VOLUME 79.5 fl (80-96); MEAN PLT VOLUME 8.8 fl (7.5-11.1); MONO % 5.7 % (3.8-10.2); NEUT % 80.8 % (42.8-82.8); PLATELET COUNT 199 K/MM3 (134-434); RDW 15.7 % (11.6-15.6); WHITE BLOOD COUNT 6.5 K/mm3 (4.0-10.0)
--- NOTE | 2017-08-19 23:54 | PN ---
Progress Note (short form) - Note Progress Note: CC: pre-op clearance S: Patient feels better today. no fevers. nausea improving. confusion resolved. + energy. no cp, palps, dizziness, sob Current Medications Acetaminophen (Tylenol -) 650 mg PO QID [facility] Acetaminophen (Tylenol -) 650 mg PO Q4H PRN PRN Reason: FEVER OR PAIN Last Admin: 08/19/17 20:47 Dose: 650 mg Bethanechol Chloride (Urecholine -) 50 mg PO TID [facility] Last Admin: 08/19/17 21:34 Dose: 50 mg Calcium Carbonate/Cholecalciferol (Os-Carlos 500+D -) 1 tab PO BID [facility] Last Admin: 08/19/17 21:34 Dose: 1 tab Docusate Sodium (Colace -) 100 mg PO BID [facility] Last Admin: 08/19/17 21:27 Dose: Not Given Enoxaparin Sodium (Lovenox -) 40 mg SQ DAILY [facility] Last Admin: 08/19/17 09:31 Dose: 40 mg Fentanyl (Sublimaze Injection -) 25 mcg IVPUSH [id number] PRN PRN Reason: PAIN Gabapentin (Neurontin -) 300 mg PO DAILY [facility] Last Admin: 08/19/17 09:31 Dose: 300 mg Liraglutide (Victoza -) 1.8 mg SQ DAILY [facility] Last Admin: 08/19/17 09:32 Dose: 1.8 mg Morphine Sulfate (Morphine Sulfate) 2 mg IVPUSH Q2H PRN Non-Formulary Medication (Alprazolam [Xanax Xr]) 0.5 mg PO DAILY [facility] Non-Formulary Medication (Zinc Oxide 20% Topical Oint) 454 gm NR ASDIR [facility] Oxycodone HCl (Roxicodone -) 5 mg PO Q4H PRN PRN Reason: PAIN LEVEL 1-5 Polyethylene Glycol (Miralax (For Daily Use) -) 17 gm PO BID [facility] Last Admin: 08/19/17 21:27 Dose: Not Given Promethazine HCl (Phenergan Injection -) 12.5 mg IVPUSH Q6H PRN PRN Reason: NAUSEA-FOR RESCUE AFTER 15 MIN Sertraline HCl (Zoloft -) 50 mg PO DAILY [facility] Last Admin: 08/19/17 09:32 Dose: 50 mg Vital Signs - 24 hr 08/19/17 08/19/1717 02:08 06:00 09:00 Temperature 97.9 F 98 F Pulse Rate 90 90 Respiratory 20 20 Rate Blood Pressure 138/65 158/70 O2 Sat by Pulse 98 Oximetry (%) 08/19/17 08/19/17 09:24 18:00 Temperature 98 F 98.5 F Pulse Rate 90 89 Respiratory 20 20 Rate Blood Pressure 145/56 142/72 O2 Sat by Pulse Oximetry (%) Intake & Output 08/17/17 08/18/17 08/19/17 08/20/17 07:59 07:59 07:59 07:59 Intake Total 200 1600 900 500 Output Total 250 Balance 200 1350 900 500 Weight 203 lb nad, calm obese jvd flat, neck supple ctab, nl effort rrr nl s1, s2 no mrg. nd pmi + bs soft nt nd ext without e/c/c diminshed dp/pt no carotid bruit aaox3 no jaundice, diaphoresis CBC, BMP 08/19/17 21:00 08/19/17 06:24 ekg: sr. possible anterior infarct, borderline inferior q waves. similar to priors. cxr: wnl echo 2014: nl lv size/fn. rv not well seen. 1+ ar. mod tr. nl rvsp Assessment/Plan 76 yo with h/o HTN (not on anti-htn regimen), HLD (not on home statin), IDDM, ckd (bline ~ 1.3), prior hx of DVT (completed coumadin tx), arthritis, UTI, BLE neuropathy, spinal stenosis here s/p fall. Pre-op clearance - Stable from Cv perspective. No further testing needed prior to intervention. BAsed on RCRI and poor functional status, estimated to have low-intermediate juliana-operative CV risk. Patient counsled on risk. - tachycardia improving now that pain/nausea/fever resolving. monitor hgb. mgm't per pmd/surg. HTN - no further low range sbp's. con't to monitor for need to initiate anti-htn regimen. Hl - can evaluate risk/benefit of statin and asa as outpatient. mild ar and mod tr. - can repeat echo as outpatient
[2017-08-20] MEDS: BETHANECHOL CHLORIDE 25 MG TABLET PO SCH ×3 (06:33→21:32)
[2017-08-20 08:01] LABS: HEMATOCRIT 27.5 % (32.4-45.2); HEMOGLOBIN 8.8 GM/dL (10.7-15.3); MCH 25.5 pg (25.7-33.7); MCHC 31.9 g/dl (32.0-36.0); MEAN PLT VOLUME 9.3 fl (7.5-11.1); PLATELET COUNT 205 K/MM3 (134-434); RBC 3.44 M/mm3 (3.60-5.2); RDW 15.3 % (11.6-15.6)
[2017-08-20 08:30] LABS: ANION GAP 8 (8-16); BLOOD UREA NITROGEN 13 mg/dL (7-18); CALCIUM 8.4 mg/dL (8.5-10.1); CHLORIDE 102 mmol/L (98-107); CO2 29 mmol/L (21-32); GLUCOSE,RANDOM 104 mg/dL (74-106); SODIUM 139 mmol/L (136-145)
[2017-08-20] MEDS ORDERED: PT OWN MED DRAWER 7, Y5N ONE ×2 (09:15→09:29)
[2017-08-20] MEDS: POLYETHYLENE GLYCOL 3350 119 GM BTL PO SCH ×2 (09:20→21:32)
[2017-08-20] MEDS: DOCUSATE SODIUM 100 MG CAPSULE (FP) PO SCH ×2 (09:20→21:33)
[2017-08-20] MEDS: ENOXAPARIN NA (PORCINE) 40 MG/0.4 ML DISP.SYRIN SQ SCH (09:20)
[2017-08-20] MEDS: CALCIUM 500MG/VIT-D 200 UNITS COMBO TABLET (FP) PO SCH ×3 (09:21→21:32)
[2017-08-20] MEDS: SERTRALINE HCL 50 MG TABLET (FP) PO SCH (09:21)
[2017-08-20] MEDS: GABAPENTIN 300 MG CAPSULE (FP) PO SCH (09:21)
[2017-08-20] MEDS: LIRAGLUTIDE 0.6 MG/0.1 ML PEN.INJCTR SQ SCH (09:21)
[2017-08-20 09:33] LABS: ANISOCYTOSIS 0; MACROCYTOSIS 0; PLATELET ESTIMATE NORMAL
[2017-08-20 11:17] LABS: WHITE BLOOD COUNT 7.8 K/mm3 (4.0-10.0)
[2017-08-20 12:22] LABS: URINE APPEARANCE CLEAR; URINE BILIRUBIN NEGATIVE (NEGATIVE); URINE BLOOD 1+ (NEGATIVE); URINE COLOR LTYELLOW; URINE GLUCOSE (UA) NEGATIVE (NEGATIVE); URINE KETONE TRACE (NEGATIVE); URINE LEUK ESTERASE NEGATIVE (NEGATIVE); URINE NITRITE NEGATIVE (NEGATIVE); URINE PROTEIN NEGATIVE (NEGATIVE); URINE UROBILINOGEN NEGATIVE mg/dL (0.2-1.0)
[2017-08-20 12:25] LABS: EPI CELLS RARE /HPF (FEW)
--- NOTE | 2017-08-20 14:29 | PN ---
Progress Note, Physician Chief Complaint: Ms Roth denies cp, sob, n/v. - Current Medication List Current Medications: Active Medications Acetaminophen (Tylenol -) 650 mg PO QID [facility] Acetaminophen (Tylenol -) 650 mg PO Q4H PRN PRN Reason: FEVER OR PAIN Last Admin: 08/19/17 20:47 Dose: 650 mg Bethanechol Chloride (Urecholine -) 50 mg PO TID [facility] Last Admin: 08/20/17 14:22 Dose: 50 mg Calcium Carbonate/Cholecalciferol (Os-Carlos 500+D -) 1 tab PO BID [facility] Last Admin: 08/20/17 09:27 Dose: Not Given Docusate Sodium (Colace -) 100 mg PO BID [facility] Last Admin: 08/20/17 09:20 Dose: Not Given Enoxaparin Sodium (Lovenox -) 40 mg SQ DAILY [facility] Last Admin: 08/20/17 09:20 Dose: 40 mg Fentanyl (Sublimaze Injection -) 25 mcg IVPUSH [id number] PRN PRN Reason: PAIN Gabapentin (Neurontin -) 300 mg PO DAILY [facility] Last Admin: 08/20/17 09:21 Dose: 300 mg Liraglutide (Victoza -) 1.8 mg SQ DAILY [facility] Last Admin: 08/20/17 09:21 Dose: 1.8 mg Non-Formulary Medication (Alprazolam [Xanax Xr]) 0.5 mg PO DAILY [facility] Non-Formulary Medication (Zinc Oxide 20% Topical Oint) 454 gm NR ASDIR [facility] Oxycodone HCl (Roxicodone -) 5 mg PO Q4H PRN PRN Reason: PAIN LEVEL 1-5 Polyethylene Glycol (Miralax (For Daily Use) -) 17 gm PO BID [facility] Last Admin: 08/20/17 09:20 Dose: Not Given Promethazine HCl (Phenergan Injection -) 12.5 mg IVPUSH Q6H PRN PRN Reason: NAUSEA-FOR RESCUE AFTER 15 MIN Sertraline HCl (Zoloft -) 50 mg PO DAILY [facility] Last Admin: 08/20/17 09:21 Dose: 50 mg - Objective Vital Signs: Vital Signs Temperature 36.7 C 08/20/17 14:14 Pulse Rate 94 H 08/20/17 14:14 Respiratory Rate 20 08/20/17 14:14 Blood Pressure 152/63 08/20/17 14:14 O2 Sat by Pulse Oximetry (%) 96 08/20/17 09:00 Constitutional: Yes: No Distress, Calm, Obese Cardiovascular: Yes: Regular Rate and Rhythm. No: Gallop, Murmur, Rub Respiratory: Yes: Regular, CTA Bilaterally. No: Rales, Rhonchi, Wheezes Gastrointestinal: Yes: Normal Bowel Sounds, Soft. No: Distention, Tenderness Extremities: Yes: WNL Edema: No Labs: CBC, BMP 08/20/17 06:00 08/20/17 06:00 INR, PTT INR 1.12 (0.82-1.09) 08/16/17 14:20 Problem List - Problems (1) Femur fracture Code(s): S72.90XA - UNSP FRACTURE OF UNSP FEMUR, INIT ENCNTR FOR CLOSED FRACTURE Qualifiers: Encounter type: initial encounter Femur location: distal Fracture type: closed Fracture morphology: other fracture Laterality: left Qualified Code (s): S72.492A - Other fracture of lower end of left femur, initial encounter for closed fracture (2) Constipation Code(s): K59.00 - CONSTIPATION, UNSPECIFIED (3) Diabetes Code(s): E11.9 - TYPE 2 DIABETES MELLITUS WITHOUT COMPLICATIONS (4) CKD (chronic kidney disease) Code(s): N18.9 - CHRONIC KIDNEY DISEASE, UNSPECIFIED (5) Fever postop Code(s): R50.82 - POSTPROCEDURAL FEVER Assessment/Plan (1) Femur fracture Assessment/Plan: -s/p surgery -tolerated surgery well -continue PT and on lovenox -begin dispo planning when safe from ortho standpoint Code(s): S72.90XA - UNSP FRACTURE OF UNSP FEMUR, INIT ENCNTR FOR CLOSED FRACTURE Qualifiers: Encounter type: initial encounter Femur location: distal Fracture type: closed Fracture morphology: other fracture Laterality: left Qualified Code (s): S72.492A - Other fracture of lower end of left femur, initial encounter for closed fracture (2) Constipation Assessment/Plan: -continue miralax and colace Code(s): K59.00 - CONSTIPATION, UNSPECIFIED (3) Diabetes Assessment/Plan: -continue victoza -diabetic Code(s): E11.9 - TYPE 2 DIABETES MELLITUS WITHOUT COMPLICATIONS (4) CKD (chronic kidney disease) Assessment/Plan: -stable -monitor Code(s): N18.9 - CHRONIC KIDNEY DISEASE, UNSPECIFIED (5) Post op fever -patient had second fever last night -CXR checked and negative -urinalysis normal -follow up cultures -continue I/S Dispo -if no fevers for 24 hours, plan to d/c back to SNF
--- NOTE | 2017-08-20 16:01 | PN ---
Progress Note (short form) - Note Progress Note: Pt lying in bed. Sat up with PT. Unable to transfer. Last Vital Signs Temp Pulse Resp BP Pulse Ox 98.0 F 94 H 20 152/63 96 08/20/17 14:14 08/20/17 14:14 08/20/17 14:14 08/20/17 14:14 08/20/17 09:00 LLE dressings cdi calves soft NT NV exam unchanged, decreased sensation and limited active motion 2+ dp pulse Abnormal Lab Results 08/19/17 08/20/17 08/20/17 21:00 06:00 06:00 RBC 3.20 L 3.44 L Hgb 8.2 L 8.8 L Hct 25.4 L 27.5 L MCV 79.5 L MCH 25.5 L MCHC 31.9 L RDW 15.7 H Calcium 8.4 L Urine Ketones Urine Blood 08/20/17 11:30 RBC Hgb Hct MCV MCH MCHC RDW Calcium Urine Ketones Trace H Urine Blood 1+ H A/p: POD 4 L femoral ORIF -pain control -DVT proph -oob/rehab -ok for lift to transfer to chair -agree with DC if 24h afebrile
[2017-08-21] MEDS: BETHANECHOL CHLORIDE 25 MG TABLET PO SCH ×3 (06:35→21:18)
[2017-08-21 07:54] LABS: BASO % 0.3 % (0-2.0); EOS % 1.9 % (0-4.5); HEMATOCRIT 25.5 % (32.4-45.2); HEMOGLOBIN 8.1 GM/dL (10.7-15.3); LYMPH % 24.3 % (8-40); MCH 25.3 pg (25.7-33.7); MCHC 31.9 g/dl (32.0-36.0); MEAN CELL VOLUME 79.1 fl (80-96); MEAN PLT VOLUME 8.2 fl (7.5-11.1); MONO % 7.6 % (3.8-10.2); NEUT % 65.9 % (42.8-82.8); PLATELET COUNT 224 K/MM3 (134-434); RBC 3.22 M/mm3 (3.60-5.2); RDW 15.5 % (11.6-15.6)
[2017-08-21 08:10] LABS: ANION GAP 9 (8-16); BLOOD UREA NITROGEN 12 mg/dL (7-18); CHLORIDE 101 mmol/L (98-107); CO2 28 mmol/L (21-32); CREATININE 0.9 mg/dL (0.55-1.02); GLUCOSE,RANDOM 95 mg/dL (74-106); POTASSIUM 3.8 mmol/L (3.5-5.1); SODIUM 138 mmol/L (136-145)
--- NOTE | 2017-08-21 09:03 | PN ---
Progress Note (short form) - Note Progress Note: Patient resting in bed / no cardiac / no resp distress / Awake and alert . Lt hip pain. Selected Entries 08/21/17 06:00 Temperature 98.8 F Pulse Rate 89 Respiratory 20 Rate Blood Pressure 152/71 Laboratory Tests 08/18/17 08/19/17 08/21/17 21:13 06:24 07:00 WBC 5.0 D RBC 3.22 L Hgb 8.1 L Hct 25.5 L Plt Count 224 Sodium 137 Potassium 4.2 Chloride 102 Carbon Dioxide 27 Anion Gap 8 BUN 15 Creatinine 1.1 H POC Glucometer 177 Random Glucose 124 H Calcium 8.1 L Phosphorus 2.9 D Magnesium 2.0 08/21/17 07:00 WBC RBC Hgb Hct Plt Count Sodium 138 Potassium 3.8 Chloride 101 Carbon Dioxide 28 Anion Gap 9 BUN 12 Creatinine 0.9 POC Glucometer Random Glucose 95 Calcium 8.0 L Phosphorus Magnesium P/E HEENT / Neck supple / No bruits Cor / S1 S2 NSR Chest / No Rhonchi / No creps Abd / obese / soft / nontender . Ext / Compression stockings in place / no edema. Imp / Distal Lt fem fx Post op anemia Post op Fever / resolved DM CKD Plan <> Pt RX Follow CBC SNF placement when stable.
[2017-08-21] MEDS ORDERED: PT OWN MED DRAWER 7, Y5N ONE (09:19)
[2017-08-21] MEDS: SERTRALINE HCL 50 MG TABLET (FP) PO SCH (09:21)
[2017-08-21] MEDS: ENOXAPARIN NA (PORCINE) 40 MG/0.4 ML DISP.SYRIN SQ SCH (09:21)
[2017-08-21] MEDS: DOCUSATE SODIUM 100 MG CAPSULE (FP) PO SCH ×2 (09:21→21:18)
[2017-08-21] MEDS: CALCIUM 500MG/VIT-D 200 UNITS COMBO TABLET (FP) PO SCH ×3 (09:21→21:17)
[2017-08-21] MEDS: GABAPENTIN 300 MG CAPSULE (FP) PO SCH (09:21)
[2017-08-21] MEDS: LIRAGLUTIDE 0.6 MG/0.1 ML PEN.INJCTR SQ SCH (09:21)
[2017-08-21] MEDS: POLYETHYLENE GLYCOL 3350 119 GM BTL PO SCH ×2 (09:27→21:18)
[2017-08-22] MEDS: BETHANECHOL CHLORIDE 25 MG TABLET PO SCH ×3 (05:21→22:48)
[2017-08-22 07:47] LABS: BASO % 0.4 % (0-2.0); EOS % 2.3 % (0-4.5); HEMATOCRIT 25.9 % (32.4-45.2); HEMOGLOBIN 8.3 GM/dL (10.7-15.3); LYMPH % 22.6 % (8-40); MCH 25.5 pg (25.7-33.7); MCHC 32.2 g/dl (32.0-36.0); MEAN CELL VOLUME 79.3 fl (80-96); MONO % 7.3 % (3.8-10.2); NEUT % 67.4 % (42.8-82.8); PLATELET COUNT 282 K/MM3 (134-434); RBC 3.27 M/mm3 (3.60-5.2); RDW 15.2 % (11.6-15.6)
[2017-08-22] MEDS ORDERED: PROCHLORPERAZINE MALEATE 5 MG TABLET PO PRN (07:55)
--- NOTE | 2017-08-22 08:01 | PN ---
Progress Note (short form) - Note Progress Note: Patient resting in bed complains of nausea / had Bm this am . Also feels " sweaty " . States this is not new and has been going on since post -op . She denies abdominal pain. She denies any CP / SOB / Palpitations. V/S stable. Selected Entries 08/22/17 05:27 Temperature 98.8 F Pulse Rate 88 Respiratory 18 Rate Blood Pressure 145/81 Selected Entries Laboratory Tests 08/18/17 08/19/17 08/21/17 21:13 06:24 07:00 WBC 5.0 D RBC 3.22 L Hgb 8.1 L Hct 25.5 L Plt Count 224 Sodium 137 Potassium 4.2 Chloride 102 Carbon Dioxide 27 Anion Gap 8 BUN 15 Creatinine 1.1 H POC Glucometer 177 Random Glucose 124 H Calcium 8.1 L Phosphorus 2.9 D Magnesium 2.0 08/21/17 07:00 WBC RBC Hgb Hct Plt Count Sodium 138 Potassium 3.8 Chloride 101 Carbon Dioxide 28 Anion Gap 9 BUN 12 Creatinine 0.9 POC Glucometer Random Glucose 95 Calcium 8.0 L Phosphorus Magnesium P/E HEENT / Neck supple / Carotids 2 + / No bruits Cor / S1 S2 NSR Chest / Clear P & A . Abd / Soft / nontender / No rebound / No guarding Ext / Compression stockings in place Imp /Dyspepsia Distal Lt fem fx Post op anemia Post op Fever / resolved DM CKD Plan <> Obtain CBC / CMP. Compazine ordered. BGMS STABLE X 2 THIS AM. NO HYPOGLYCEMIA. Goal is SNF placement when stable.
[2017-08-22 08:14] LABS: ALK PHOS 76 U/L (45-117); ANION GAP 11 (8-16); BILIRUBIN,TOTAL 0.4 mg/dL (0.2-1.0); BLOOD UREA NITROGEN 13 mg/dL (7-18); CALCIUM 8.3 mg/dL (8.5-10.1); CHLORIDE 100 mmol/L (98-107); CO2 28 mmol/L (21-32); GLUCOSE,RANDOM 124 mg/dL (74-106); POTASSIUM 3.8 mmol/L (3.5-5.1); SGOT/AST 39 U/L (15-37); SGPT/ALT 24 U/L (12-78); SODIUM 139 mmol/L (136-145); TOT PROT 5.8 g/dl (6.4-8.2)
[2017-08-22] MEDS: DOCUSATE SODIUM 100 MG CAPSULE (FP) PO SCH ×2 (10:05→22:48)
[2017-08-22] MEDS: ENOXAPARIN NA (PORCINE) 40 MG/0.4 ML DISP.SYRIN SQ SCH (10:05)
[2017-08-22] MEDS: SERTRALINE HCL 50 MG TABLET (FP) PO SCH (10:05)
[2017-08-22] MEDS: GABAPENTIN 300 MG CAPSULE (FP) PO SCH (10:06)
[2017-08-22] MEDS: CALCIUM 500MG/VIT-D 200 UNITS COMBO TABLET (FP) PO SCH ×3 (10:06→22:51)
[2017-08-22] MEDS: LIRAGLUTIDE 0.6 MG/0.1 ML PEN.INJCTR SQ SCH (10:08)
[2017-08-22] MEDS: POLYETHYLENE GLYCOL 3350 119 GM BTL PO SCH ×2 (10:09→22:52)
[2017-08-23] MEDS: BETHANECHOL CHLORIDE 25 MG TABLET PO SCH ×3 (05:34→22:00)
[2017-08-23] MEDS ORDERED: HYDROCORTISONE 0.5% TOPICAL CREAM 30 GM TUBE TP PRN (08:27)
[2017-08-23] MEDS ORDERED: SODIUM PHOSPHATE/NA BIPHOS 133 ML ENEMA PR ONE (08:31)
--- NOTE | 2017-08-23 08:37 | PN ---
Progress Note (short form) - Note Progress Note: Patient claims constipation / rectal fullness . She also complains of back itching . BP consistently elevated. No further nausea .She denies any CP / SOB / Palpitations. Laboratory Tests Selected Entries 08/23/17 08/23/17 06:29 07:04 Temperature 98.2 F Pulse Rate 85 Respiratory 20 Rate Blood Pressure 160/78 Laboratory Tests 08/22/17 08/23/17 07:54 05:44 Sodium 139 Potassium 3.8 Chloride 100 Carbon Dioxide 28 Anion Gap 11 BUN 13 Creatinine 1.0 POC Glucometer 117 Total Bilirubin 0.4 D AST 39 H D ALT 24 Alkaline Phosphatase 76 Total Protein 5.8 L Albumin 2.0 L D P/E HEENT / Neck supple / Carotids 2 + / No bruits Cor / S1 S2 NSR Chest / Clear P & A . Abd / Soft / nontender / No rebound / No guarding Ext / Compression stockings in place Back / Mild erythematous dermatitis rash Imp /Constipation Pruritic rash back / Dermatitis most likely from sweating HTN Distal Lt fem fx Post op anemia Post op Fever / resolved DM CKD Plan <> Add ARB / Losartan for BP Fleets enema ordered. Hydrocortisone for dermatitis rash back Repeat CBC / CMP in AM. SNF placement when stable.
[2017-08-23] MEDS: ENOXAPARIN NA (PORCINE) 40 MG/0.4 ML DISP.SYRIN SQ SCH (09:59)
[2017-08-23] MEDS: SERTRALINE HCL 50 MG TABLET (FP) PO SCH (09:59)
[2017-08-23] MEDS: DOCUSATE SODIUM 100 MG CAPSULE (FP) PO SCH ×2 (09:59→22:56)
[2017-08-23] MEDS: GABAPENTIN 300 MG CAPSULE (FP) PO SCH (09:59)
[2017-08-23] MEDS: CALCIUM 500MG/VIT-D 200 UNITS COMBO TABLET (FP) PO SCH ×2 (10:00→22:57)
[2017-08-23] MEDS: POLYETHYLENE GLYCOL 3350 119 GM BTL PO SCH ×2 (10:00→22:57)
[2017-08-23] MEDS: LIRAGLUTIDE 0.6 MG/0.1 ML PEN.INJCTR SQ SCH (10:00)
[2017-08-23] MEDS ORDERED: ALPRAZolam 0.25 MG TABLET PO PRN (10:02)
[2017-08-23] MEDS: LOSARTAN POTASSIUM 50 MG TABLET (FP) PO SCH (13:51)
[2017-08-23] MEDS: PATIENT'S OWN MEDICATION (NON-FORMULARY) (Alprazolam [Xanax Xr] 0.5 MG) PO SCH ×2 (15:07→15:08)
[2017-08-23] MEDS ORDERED: SIMETHICONE 80 MG TAB.CHEW (FP) PO PRN (16:55)
[2017-08-23] MEDS ORDERED: PT OWN MED DRAWER 7, Y5N ONE (18:33)
[2017-08-24] MEDS: BETHANECHOL CHLORIDE 25 MG TABLET PO SCH ×2 (06:13→13:41)
[2017-08-24] MEDS ORDERED: PT OWN MED DRAWER 7, Y5N ONE ×3 (06:47→10:07)
[2017-08-24 09:21] LABS: BASO % 0.4 % (0-2.0); EOS % 1.8 % (0-4.5); HEMATOCRIT 28.8 % (32.4-45.2); HEMOGLOBIN 9.1 GM/dL (10.7-15.3); LYMPH % 21.3 % (8-40); MCHC 31.5 g/dl (32.0-36.0); MEAN CELL VOLUME 79.3 fl (80-96); MEAN PLT VOLUME 7.8 fl (7.5-11.1); MONO % 6.6 % (3.8-10.2); NEUT % 69.9 % (42.8-82.8); PLATELET COUNT 384 K/MM3 (134-434); RBC 3.63 M/mm3 (3.60-5.2); RDW 15.8 % (11.6-15.6); WHITE BLOOD COUNT 7.3 K/mm3 (4.0-10.0)
[2017-08-24 09:53] LABS: ALBUMIN 2.2 g/dl (3.4-5.0); ANION GAP 6 (8-16); BILIRUBIN,TOTAL 0.6 mg/dL (0.2-1.0); BLOOD UREA NITROGEN 14 mg/dL (7-18); CHLORIDE 103 mmol/L (98-107); CO2 29 mmol/L (21-32); GLUCOSE,RANDOM 112 mg/dL (74-106); POTASSIUM 4.1 mmol/L (3.5-5.1); SGOT/AST 27 U/L (15-37); SGPT/ALT 24 U/L (12-78); SODIUM 138 mmol/L (136-145); TOT PROT 5.9 g/dl (6.4-8.2)
[2017-08-24 09:54] LABS: ALK PHOS 88 U/L (45-117)
[2017-08-24] MEDS: LOSARTAN POTASSIUM 50 MG TABLET (FP) PO SCH (09:55)
[2017-08-24] MEDS: ENOXAPARIN NA (PORCINE) 40 MG/0.4 ML DISP.SYRIN SQ SCH (09:55)
[2017-08-24] MEDS: POLYETHYLENE GLYCOL 3350 119 GM BTL PO SCH (09:55)
[2017-08-24] MEDS: DOCUSATE SODIUM 100 MG CAPSULE (FP) PO SCH (09:55)
[2017-08-24] MEDS: CALCIUM 500MG/VIT-D 200 UNITS COMBO TABLET (FP) PO SCH (09:56)
[2017-08-24] MEDS: GABAPENTIN 300 MG CAPSULE (FP) PO SCH (09:56)
[2017-08-24] MEDS: LIRAGLUTIDE 0.6 MG/0.1 ML PEN.INJCTR SQ SCH (09:56)
[2017-08-24] MEDS: SERTRALINE HCL 50 MG TABLET (FP) PO SCH (09:57)
[2017-08-24 10:05] VITALS: BP 139/75; PULSE 82; TEMP 98
--- NOTE | 2017-08-24 13:13 | DS ---
Physical Examination Vital Signs: Vital Signs Temperature 36.7 C 08/24/17 10:00 Pulse Rate 82 08/24/17 10:00 Respiratory Rate 20 08/24/17 10:00 Blood Pressure 139/75 08/24/17 10:00 O2 Sat by Pulse Oximetry (%) 98 08/24/17 09:00 Labs: CBC, BMP 08/24/17 08:30 08/24/17 08:30 Discharge Summary Reason For Visit: FRACTURE OF FEMUR Current Active Problems CKD (chronic kidney disease) (Acute) Displaced supracondylar fracture without intracondylar extension of lower end of left femur, initial encounter for closed fracture (Acute) Femur fracture (Acute) Fever postop (Acute) Condition: Stable - Instructions Diet, Activity, Other Instructions: regular diet. Up with assistance, further activity per PT at SNF. Referrals: Gerald Nascimento MD [Primary Care Provider] - Kuldip Monreal MD [Staff Physician] - Disposition: [facility] FACILITY - Home Medications Comprehensive Discharge Medication List: Ambulatory Orders Alprazolam [Xanax Xr] 0.5 mg PO DAILY 06/18/16 Bethanechol Chloride [Urecholine] 50 mg PO TID 06/18/16 Gabapentin 300 mg PO DAILY 06/18/16 Polyethylene Glycol 3350 [Miralax 119 gm Btl -] 17 gm PO HS 06/18/16 Propylene Glycol/Peg 400/Pf [Systane 0.3-0.4% Eye Drops] 2 drop OU BID 06/18/16 Sertraline HCl 50 mg PO DAILY 06/18/16 Simethicone 80 mg PO Q4H PRN 06/18/16 Zinc Oxide 20% Topical Oint 454 gm NR ASDIR 06/18/16 Acetaminophen 650 mg PO QID 08/16/17 Acetaminophen [Tylenol] 325 mg PO QID 08/16/17 Bethanechol Chloride [Urecholine] 50 mg PO TID 08/16/17 Calcium Carbonate/Vitamin D3 [Calcium 500-Vit D3 600 Tablet] 1 tab PO DAILY Liraglutide [Victoza -] 1.8 mg SQ DAILY 08/16/17 Phenylephrine 0.25%/Starch [Anusol Suppository -] 25 mg [place] BID 08/16/17 Docusate Sodium [Colace -] 100 mg PO BID capsule 08/24/17 Enoxaparin [Lovenox -] 40 mg SQ DAILY disp.syrin 08/24/17 Losartan Potassium [Cozaar -] 50 mg PO DAILY tablet 08/24/17 Oxycodone HCl [Roxicodone -] 5 mg PO Q4H PRN tablet MDD 30mg 08/24/17
== END 2017-08-24 15:07 | DRG 481 ==
LOC: JER 11:49 → JERBED 15:21 → J8W 08-17 00:28
PROVIDERS: ADMIT Internal Medicine Geriatric Medicine; ATTEND Internal Medicine Geriatric Medicine
PROC: 0QSC04Z Reposition Left Lower Femur with Internal Fixation Device, Open Approach (ICD-10-PCS; principal; 2017-08-17 19:00)
DX: S72.452A Displaced supracondylar fracture without intracondylar extension of lower end of left femur, initial encounter for closed fracture (principal); N39.0 Urinary tract infection, site not specified; I97.89 Other postprocedural complications and disorders of the circulatory system, not elsewhere classified; J98.11 Atelectasis; E78.5 Hyperlipidemia, unspecified; M48.00 Spinal stenosis, site unspecified; E11.42 Type 2 diabetes mellitus with diabetic polyneuropathy; D64.9 Anemia, unspecified; K59.09 Other constipation; M13.88 Other specified arthritis, other site; I08.2 Rheumatic disorders of both aortic and tricuspid valves; I12.9 Hypertensive chronic kidney disease with stage 1 through stage 4 chronic kidney disease, or unspecified chronic kidney disease; E11.22 Type 2 diabetes mellitus with diabetic chronic kidney disease; N18.9 Chronic kidney disease, unspecified; W06.XXXA Fall from bed, initial encounter; Y93.89 Activity, other specified; Y92.89 Other specified places as the place of occurrence of the external cause; R00.0 Tachycardia, unspecified; Y83.8 Other surgical procedures as the cause of abnormal reaction of the patient, or of later complication, without mention of misadventure at the time of the procedure; R50.82 Postprocedural fever; E66.8 Other obesity; Z68.39 Body mass index [BMI] 39.0-39.9, adult; R10.13 Epigastric pain; R21 Rash and other nonspecific skin eruption; Z86.718 Personal history of other venous thrombosis and embolism; Z79.4 Long term (current) use of insulin
CPT/HCPCS: 36415; 71010-TC; 73523-TC; 73552-TC-LT; 73562-TC-LT; 73700-TC-RT; 76000-TC; 80048; 80053; 81003; 81015; 83605; 83735; 84100; 85025; 85610; 85730; 86850; 86900; 86901; 87040; 87086; 93005; 93010; 94760; 99283-25

== ENCOUNTER 2017-10-29 20:51 | Emergency (ER) | payer OTHER ==
[2017-10-29 21:31] VITALS: TEMP 96.7; BMI 36.4
[2017-10-29 22:15] LABS: BASO % 0.6 % (0-2.0); EOS % 2.4 % (0-4.5); HEMATOCRIT 34.4 % (32.4-45.2); HEMOGLOBIN 11.2 GM/dL (10.7-15.3); LYMPH % 27.9 % (8-40); MCH 26.3 pg (25.7-33.7); MCHC 32.5 g/dl (32.0-36.0); MEAN CELL VOLUME 80.7 fl (80-96); MONO % 5.1 % (3.8-10.2); PLATELET COUNT 270 K/MM3 (134-434); RBC 4.26 M/mm3 (3.60-5.2); RDW 17.9 % (11.6-15.6)
[2017-10-29 22:36] LABS: INR 1.06 (0.82-1.09)
[2017-10-29 22:39] LABS: ACTIVATED PTT 31.4 SECONDS (26.9-34.4); ALBUMIN 3.2 g/dl (3.4-5.0); ANION GAP 8 (8-16); BILIRUBIN,TOTAL 0.2 mg/dL (0.2-1.0); BLOOD UREA NITROGEN 18 mg/dL (7-18); CALCIUM 8.6 mg/dL (8.5-10.1); CHLORIDE 107 mmol/L (98-107); CO2 25 mmol/L (21-32); CREATININE 1.4 mg/dL (0.55-1.02); GLUCOSE,RANDOM 107 mg/dL (74-106); SGPT/ALT 23 U/L (12-78); SODIUM 140 mmol/L (136-145); TOT PROT 7.2 g/dl (6.4-8.2)
[2017-10-29 22:40] LABS: ALK PHOS 161 U/L (45-117)
--- NOTE | 2017-10-29 22:46 | PDOC ---
History of Present Illness <Magda Persaud - Last Filed: 10/29/17 23:05> - History of Present Illness Initial Comments: 10/29/17 22:42 " The patient is a 77 year old female with a significant PMH of HTN, HLD, DVT on Lovenox, DM, arthritis, UTI, BLE neuropathy, spinal stenosis, CKD and hemorrhoids who presents to the emergency department with four episodes of bloody stool today. The patient reports she first had stool with streaks of blood but noticed her last two episodes of diarrhea were loose stools with bright red blood. Pt denies any significant abdominal pain. The patient is currently on antibiotics for a UTI. Denies N/V. The patient states she last had a colonoscopy two years ago that was reportedly normal. The patient follow Dr. Valdes (GI). The patient denies chest pain, shortness of breath, headache and dizziness. Denies fever, chills, and constipation. Denies dysuria, frequency, urgency and hematuria. Allergies: Codeine Past surgical history: Social history: Drinks socially. No reported drug or cigarette use. PCP: Dr. Nascimento GI: Dr. Valdes " <Kuldip Gallego - Last Filed: 10/31/17 14:02> - General Chief Complaint: Rectal Bleed Stated Complaint: GI BLEED Time Seen by Provider: 10/29/17 21:02 Past History <Magda Persaud - Last Filed: 10/29/17 23:05> - Past Medical History COPD: No Diabetes: Yes HTN: Yes Thyroid Disease: No - Surgical History Cholecystectomy: Yes - Family Disease History Family Disease History: Diabetes: Father, Heart Disease: Father - Immunization History Immunization Up to Date: Yes - Suicide/Smoking/Psychosocial Hx Smoking History: Never smoked Have you smoked in the past 12 months: No Information on smoking cessation initiated: No Hx Alcohol Use: Yes (Occasional;) Drug/Substance Use Hx: No Substance Use Type: Alcohol Hx Substance Use Treatment: No <Kuldip Gallego - Last Filed: 10/31/17 14:02> - Past Medical History Allergies/Adverse Reactions: Allergies Allergy/AdvReac Type Severity Reaction Status Date / Time codeine Allergy Verified 10/29/17 21:18 Home Medications: Ambulatory Orders Alprazolam [Xanax Xr] 0.5 mg PO DAILY 06/18/16 Bethanechol Chloride [Urecholine] 50 mg PO TID 06/18/16 Gabapentin 300 mg PO DAILY 06/18/16 Propylene Glycol/Peg 400/Pf [Systane 0.3-0.4% Eye Drops] 2 drop OU BID 06/18/16 Sertraline HCl 50 mg PO DAILY 06/18/16 Simethicone 80 mg PO Q4H PRN 06/18/16 Acetaminophen [Tylenol] 325 mg PO QID 08/16/17 Bethanechol Chloride [Urecholine] 50 mg PO TID 08/16/17 Calcium Carbonate/Vitamin D3 [Calcium 500-Vit D3 600 Tablet] 1 tab PO DAILY Liraglutide [Victoza -] 1.8 mg SQ DAILY 08/16/17 Docusate Sodium [Colace -] 100 mg PO BID capsule 08/24/17 Enoxaparin [Lovenox -] 40 mg SQ DAILY disp.syrin 08/24/17 Losartan Potassium [Cozaar -] 50 mg PO DAILY tablet 08/24/17 Ferrous Sulfate 325 mg PO DAILY 10/29/17 Review of Systems - Review of Systems Able to Perform ROS?: Yes Comments:: 10/29/17 23:05 GENERAL/CONSTITUTIONAL: No fever or chills. No weakness. HEAD, EYES, EARS, NOSE AND THROAT: No change in vision. No ear pain or discharge. No sore throat. CARDIOVASCULAR: No chest pain or shortness of breath. RESPIRATORY: No cough, wheezing, or hemoptysis. GASTROINTESTINAL: (+) Diarrhea. No nausea, vomit, or constipation. GENITOURINARY: No dysuria, frequency, or change in urination. MUSCULOSKELETAL: No joint or muscle swelling or pain. No neck or back pain. SKIN: No rash NEUROLOGIC: No headache, vertigo, loss of consciousness, or change in strength/ sensation. ENDOCRINE: No increased thirst. No abnormal weight change. HEMATOLOGIC/LYMPHATIC: No anemia, easy bleeding, or history of blood clots. ALLERGIC/IMMUNOLOGIC: No hives or skin allergy. <Magda Persaud - Last Filed: 10/29/17 23:05> *Physical Exam - Vital Signs Last Vital Signs Temp Pulse Resp BP Pulse Ox 96.7 F L 88 18 115/67 97 10/29/17 21:05 10/29/17 21:05 10/29/17 21:05 10/29/17 21:05 10/29/17 21:05 <Magda Persaud - Last Filed: 10/29/17 23:05> - Vital Signs Last Vital Signs Temp Pulse Resp BP Pulse Ox 96.7 F L 88 18 115/67 97 10/29/17 21:05 10/29/17 21:05 10/29/17 21:05 10/29/17 21:05 10/29/17 21:05 - Physical Exam Comments: 10/29/17 23:16 "GENERAL: Awake, alert, and fully oriented, in no acute distress HEAD: No signs of trauma EYES: PERRLA, EOMI, sclera anicteric, conjunctiva clear ENT: Auricles normal inspection, hearing grossly normal, nares patent, oropharynx clear without exudates. Moist mucosa NECK: Nontender, no stepoffs, Normal ROM, supple, no lymphadenopathy, JVD, or masses LUNGS: Breath sounds equal, clear to auscultation bilaterally. No wheezes, and no crackles HEART: Regular rate and rhythm, normal S1 and S2, no murmurs, rubs or gallops ABDOMEN: Soft, nontender, normoactive bowel sounds. No guarding, no rebound. No masses EXTREMITIES: Normal range of motion, no edema. No clubbing or cyanosis. No cords, erythema, or tenderness RECTAL: (+) 3 external hemorrhoids around the 2, 6, and 10 o'clock. (+) 1 palpable internal hemorrhoid. No evidence of thrombosis. stool brown without melena or kasie blood NEUROLOGICAL: Cranial nerves II through XII intact. 5/5 strength and sensation in all extremities, Normal speech, normal gait, normal cerebellar function SKIN: Warm, Dry, normal turgor, no rashes or lesions noted." <Holly Gallegoan - Last Filed: 10/31/17 14:02> ED Treatment Course - LABORATORY CBC & Chemistry Diagram: 10/29/17 22:03 10/29/17 22:03 - ADDITIONAL ORDERS Additional order review: Laboratory Results 10/29/17 10/29/17 10/29/17 22:03 22:03 22:00 PT with INR 12.00 H INR 1.06 PTT (Actin FS) 31.4 Sodium 140 Potassium 3.8 Chloride 107 Carbon Dioxide 25 Anion Gap 8 BUN 18 Creatinine 1.4 H Creat Clearance w eGFR 36.46 Random Glucose 107 H Calcium 8.6 Total Bilirubin 0.2 D AST 29 ALT 23 Alkaline Phosphatase 161 H Total Protein 7.2 Albumin 3.2 L Stool Occult Blood Negative 10/29/17 22:03 RBC 4.26 MCV 80.7 MCHC 32.5 RDW 17.9 H D MPV 9.0 D Neutrophils % 64.0 Lymphocytes % 27.9 D Monocytes % 5.1 Eosinophils % 2.4 Basophils % 0.6 <Magda Persaud - Last Filed: 10/29/17 23:05> - LABORATORY CBC & Chemistry Diagram: 10/30/17 01:32 10/29/17 22:03 - ADDITIONAL ORDERS Additional order review: Laboratory Results 10/29/17 10/29/17 22:03 22:00 PT with INR 12.00 H INR 1.06 PTT (Actin FS) 31.4 Stool Occult Blood Negative 10/29/17 22:03 RBC 4.26 MCV 80.7 MCHC 32.5 RDW 17.9 H D MPV 9.0 D Neutrophils % 64.0 Lymphocytes % 27.9 D Monocytes % 5.1 Eosinophils % 2.4 Basophils % 0.6 <Kuldip Gallego - Last Filed: 10/31/17 14:02> Medical Decision Making - Medical Decision Making 10/29/17 23:17 77 F with h/o hemorrhoids presenting with BRBPR, found to have external and internal hemorrhoids on exam. Stool itself is brown and guaiac negative. Pt's bleeding is likely from her hemorrhoids. Had recent colonoscopy that was reportedly normal. Pt is HD stable with no signs of severe hemorrhage. Nonetheless, given that pt is on anticoagulation for DVT prophylaxis, will trend CBCs. - Serial CBCs - coags, T&S - f/u GI 10/30/17 01:50 Repeat CBC stable (accounting for 500cc bolus given during ED stay) Pt reassessed - continues to feel well with no additional episodes of BRBPR. Pt well appearing with no complaints, vitals wnl, clinically stable for DC. I discussed the physical exam findings, ancillary test results and final diagnoses with the patient. I answered all of the patient's questions. The patient was satisfied with the care received and felt comfortable with the discharge plan and treatment plan. The patient agrees to follow up with the primary care physician within 24-72 hours. <Kuldip Gallego - Last Filed: 10/31/17 14:02> *DC/Admit/Observation/Transfer - Attestations Scribe Attestion: 10/29/17 23:05 Documentation prepared by Magda Persaud, acting as medical records auditor for Kuldip Gallego MD. <Magda Persaud - Last Filed: 10/29/17 23:05> - Attestations Physician Attestion: 10/29/17 23:24 I, Dr. Kuldip Gallego MD, attest that this document has been prepared under my direction and personally reviewed by me in its entirety. I further attest, that it accurately reflects all work, treatment, procedures and medical decision -making performed by me. <Kuldip Gallego - Last Filed: 10/31/17 14:02> Diagnosis at time of Disposition: Hemorrhoids - Discharge Dispostion Condition at time of disposition: Fair - Referrals Referrals: Gerald Nascimento MD [Primary Care Provider] - - Patient Instructions Printed Discharge Instructions: DI for Hemorrhoids Additional Instructions: You have hemorrhoids, which are likely the cause of your rectal bleeding. You must follow up with your GI doctor within 1 week for further evaluation. You should also ask your primary doctor for a referral to a colorectal specialist. If you experience worsening bleeding, abdominal pain, lightheadedness, chest pain, shortness of breath, fevers, or any other concerning symptoms, return to the ER immediately. - Post Discharge Activity
[2017-10-29 22:47] LABS: POTASSIUM 3.8 mmol/L (3.5-5.1); SGOT/AST 29 U/L (15-37)
[2017-10-29] MEDS ORDERED: SODIUM CHLORIDE 500 ML IV STA (22:49)
[2017-10-30 01:40] LABS: BASO % 0.5 % (0-2.0); EOS % 2.1 % (0-4.5); HEMATOCRIT 33.5 % (32.4-45.2); HEMOGLOBIN 10.9 GM/dL (10.7-15.3); LYMPH % 29.2 % (8-40); MCH 26.2 pg (25.7-33.7); MCHC 32.4 g/dl (32.0-36.0); MEAN CELL VOLUME 80.8 fl (80-96); MEAN PLT VOLUME 8.5 fl (7.5-11.1); MONO % 6.7 % (3.8-10.2); NEUT % 61.5 % (42.8-82.8); PLATELET COUNT 227 K/MM3 (134-434); RBC 4.15 M/mm3 (3.60-5.2); RDW 17.7 % (11.6-15.6); WHITE BLOOD COUNT 7.8 K/mm3 (4.0-10.0)
[2017-10-30 02:39] VITALS: PULSE 84
[2017-10-30 03:46] VITALS: BP 107/60
--- NOTE | 2017-10-31 20:30 | EKG ---
Test Reason : Blood Pressure : / mmHG Vent. Rate : 080 BPM Atrial Rate : 080 BPM P-R Int : 144 ms QRS Dur : 082 ms QT Int : 390 ms P-R-T Axes : 026 008 068 degrees QTc Int : 449 ms NORMAL SINUS RHYTHM CANNOT RULE OUT ANTERIOR INFARCT (CITED ON OR BEFORE 26-AUG-2016) ABNORMAL ECG WHEN COMPARED WITH ECG OF 16-AUG-2017 13:50, NO SIGNIFICANT CHANGE WAS FOUND Confirmed by MASON CASAS, ABEBA ([id number]) on 10/31/2017 8:30:23 PM Referred By: Confirmed By:ABEBA CUEVAS MD
== END 2017-10-30 03:52 ==
LOC: JER 20:51
DX: K64.8 Other hemorrhoids (principal); K64.4 Residual hemorrhoidal skin tags; I12.9 Hypertensive chronic kidney disease with stage 1 through stage 4 chronic kidney disease, or unspecified chronic kidney disease; E11.22 Type 2 diabetes mellitus with diabetic chronic kidney disease; N18.9 Chronic kidney disease, unspecified; Z79.84 Long term (current) use of oral hypoglycemic drugs; E78.00 Pure hypercholesterolemia, unspecified; M10.9 Gout, unspecified; N39.0 Urinary tract infection, site not specified; G62.9 Polyneuropathy, unspecified; Z86.718 Personal history of other venous thrombosis and embolism; Z79.01 Long term (current) use of anticoagulants
CPT/HCPCS: 36415; 80053; 82272; 83605; 85025; 85610; 85730; 86850; 86900; 86901; 93005; 93010; 99282-25

== ENCOUNTER 2019-04-05 07:12 | Day surgery (SDC) | payer OTHER ==
[2019-04-04 09:38] VITALS: BMI 36.7
--- NOTE | 2019-04-05 08:16 | HP ---
[facility] - Chief Complaint Chief Complaint: right hand pain, numbness, tingling History of Present Illness: right carpal tunnel syndrome History Source: Patient Limitations to Obtaining History: No Limitations - Past Medical History Allergies/Adverse Reactions: Allergies Allergy/AdvReac Type Severity Reaction Status Date / Time codeine Allergy Verified 04/05/19 07:55 SPECIAL OFFICER: Yes: Peripheral Neuropathy, Other (Spinal stenosis) Cardiovascular: Yes: HTN Hepatobiliary: Yes: Cholecystitis (s/p cholecystectomy in February 2014) Heme/Onc: Yes: Anemia Endocrine: Yes: Diabetes Mellitus - Current Medications Current Medications: Home Medications Medication Instructions Recorded Alprazolam [Xanax Xr] 0.5 mg PO DAILY 06/18/16 Propylene Glycol/Peg 400/Pf 2 drop OU BID 06/18/16 [Systane 0.3-0.4% Eye Drops] Acetaminophen [Tylenol] 325 mg PO PRN 08/16/17 Calcium Carbonate/Vitamin D3 1 tab PO DAILY 08/16/17 [Calcium 500-Vit D3 600 Tablet] Alendronate Sodium/Vitamin D3 1 each PO Q7D 04/07/18 [Fosamax Plus D 70 mg-5,600 Iu vIT d] Ascorbic Acid [Vitamin C] 500 mg PO DAILY 04/07/18 Aspirin [ASA -] 81 mg PO DAILY 04/07/18 Atorvastatin Ca [Lipitor] 10 mg PO HS 04/07/18 Carbidopa/Levodopa *Cr* 25/100 1 combo PO TID 04/07/18 [Sinemet *Cr* 25/100 -] Clopidogrel Bisulfate [Plavix] 75 mg PO DAILY 04/07/18 Lactobacillus Acidophilus [Bacid -] 1 tab PO BID 04/07/18 Nitrofurantoin Monohyd/M-Cryst 100 mg PO HS 04/07/18 [Macrobid -] Polyethylene Glycol 3350 [Miralax 17 gm PO BID 04/07/18 (For Daily Use) -] Ranitidine HCl [Zantac] 150 mg PO HS 04/07/18 Sennosides [Senna] 2 tab PO BID 04/07/18 Calcium Carbonate/Vitamin D3 1 each PO DAILY 04/04/19 [Calcium 500 + Vit D Caplet] Cranberry Fruit Extract [Cranberry 1 gm MC DAILY 04/04/19 Extract] Gabapentin [Neurontin -] 100 mg PO BID 04/04/19 Heparin - 5,000 unit SQ BID 04/04/19 Lidocaine [Aspercreme] 1 each TP DAILY 04/04/19 Losartan Potassium [Cozaar -] 25 mg PO DAILY 04/04/19 Mag Hydrox/Al Hydrox/Simeth 30 ml PO PRN 04/04/19 [Mylanta *Suspension*] Piperacillin/Tazob 3.375 gm [Zosyn] 3.375 gm IV Q6H 04/04/19 Pramipexole Di-HCl [Mirapex] 0.25 mg PO DAILY 04/04/19 Simethicone 80 mg PO BID 04/04/19 Satellite Physical Exam - Physical Examination Vital Signs: Vital Signs Period Temp Pulse Resp BP Sys/Manley Pulse Ox Last 24 Hr 97.7 F 65 18 117/63 99 General Appearance: Well Nourished ENT: Clear Lung: Clear to auscultation Heart: Regular rate & rhythm Breasts: Soft Abdomen: Soft Extremities: No edema Satellite Impression/Plan - Impression/Plan Impression: right carpal tunnel syndrome Operative Procedure: rigth carpal tunnel release Date to be Performed: 04/05/19
[2019-04-05] MEDS ORDERED: LIDOCAINE HCL 1%, 10 MG/ML (20ML VIAL) ONE (09:44)
[2019-04-05] MEDS ORDERED: MIDAZOLAM HCL 2 MG/2 ML SINGLE DOSE VIAL ONE (09:45)
[2019-04-05] MEDS ORDERED: CLINDAMYCIN 600 MG PREMIX BAG IVPB ONE (09:45)
[2019-04-05] MEDS ORDERED: LIDOCAINE HCL 1%, 10 MG/ML (20ML VIAL) INF ONE ×2 (09:45)
[2019-04-05] MEDS ORDERED: PROPOFOL 20 ML ONE (10:01)
--- NOTE | 2019-04-05 10:07 | OP ---
Operative Note - Note: Operative Date: 04/05/19 ([facility]) Pre-Operative Diagnosis: right cts Operation: right ctr ,tenosynovectomy Post-Operative Diagnosis: Same as Pre-op Surgeon: Thomas Hutchinson Archeology Professor: Mike Dey Anesthesiologist/PATHOLOGY SECRETARY/TRANSCRIPTIONIST: Sydney Worley MD Anesthesia: General, Local Specimens Removed: tenosynovium Estimated Blood Loss (mls): 0 (tourniquet) Operative Report Dictated: Yes
[2019-04-05] MEDS ORDERED: ONDANSETRON 4 MG/2 ML VIAL IVPUSH PRN (11:30)
[2019-04-05] MEDS ORDERED: LACTATED RINGERS SOLUTION 1,000 ML IV SCH (11:30)
[2019-04-05 13:02] VITALS: TEMP 97
--- NOTE | 2019-04-05 13:16 | SPEC ---
DATE OF OPERATION: 04/05/2019 PREOPERATIVE DIAGNOSIS: Right carpal tunnel syndrome. POSTOPERATIVE DIAGNOSIS: Right carpal tunnel syndrome. PROCEDURE: Right carpal tunnel release and tenosynovectomy. SURGEON: Thomas Hutchinson MD ASSISTANTS: Mike Dey MD. ANESTHESIOLOGIST: Sydney Worley MD ANESTHESIA: MAC anesthesia, local injection of 10 mL of 0.5% Marcaine and 1% lidocaine mixed. DRAINS: None. COMPLICATIONS: None. SPECIMEN: Tenosynovium, right wrist. BLOOS LOSS: None. BLOOD GIVEN: None. FLUID REPLACEMENT: 500 mL. INDICATIONS: This patient is a 78-year-old female with a preoperative diagnosis of significant severe end-stage right carpal tunnel syndrome. After understanding the potential risks, complications, alternatives, and benefits of surgery versus nonsurgical treatment, the patient elected to undergo this procedure. Specifically, the patient understands she may not get complete relief of her symptoms including the numbness, tingling, pins and needles, etc. DESCRIPTION OF PROCEDURE: The patient was brought to the operating room, peripheral IV placed and intravenous sedation was given. One gram of intravenous Ancef was given. MAC anesthesia was induced. A tourniquet was applied to the right upper arm and the right upper extremity was prepped and draped in sterile fashion. The entire case was done under 3.8 loupe magnification. A marking pen was utilized to tabitha out a longitudinal incision in an already existing skin crease. Twenty mL of 0.5% Marcaine mixed with 1% Lidocaine was injected in and around the surgical incision. The right upper extremity was elevated, exsanguinated with an Esmarch bandage and the tourniquet inflated to 250 mmHg. A No. 15 scalpel blade was utilized to cut down through the skin. Subcutaneous hemostasis was achieved with the bipolar cautery. Dissection was done through the superficial palmar fascia. Self-retaining retractors were placed into the wound. Under direct visualization, the transverse carpal ligament was transected with a No. 15 scalpel blade, exposing the median nerve and the contents of the carpal tunnel. The distal and proximal extents of the release were completed with a Littler scissor and checked with irrigation and my small finger. They were seen to be complete. Limited dissection was done on the radial side of the median nerve and more extensive dissection was done on the ulnar side of the median nerve. The patients nerve was seen to be quite compressed by epineurium and therefore a limited epineurotomy was performed. A Ragnell retractor was used to gently retract the median nerve in a radial direction. The patient had a lot of tenosynovitis and therefore a tenosynovectomy was performed off all 9 flexor tendons. This was passed off the field as tenosynovium right wrist. The floor of the carpal tunnel was checked. There were no abnormal masses or ganglion cysts. The area was copiously irrigated and washed out and closure begun. Undyed 4-0 Vicryl was used to close the deep dermal layer. Final skin reapproximation was done with horizontal mattress 4-0 nylon sutures. The area was then washed and dried, covered with Xeroform, 4x4s, fluffs between the fingers, Webril and a 4-inch plaster roll was utilized to make a volar splint, which was then wrapped with Bushra and Coban. The tourniquet was taken down after a total tourniquet time of 18 minutes. There were no complications during the case. The patient tolerated the procedure well and was brought to the ambulatory recovery room in stable condition. Fannie [id number]
[2019-04-05 16:07] VITALS: BP 160/70; PULSE 62
--- NOTE | 2019-04-07 20:23 | PATH ---
Surgical Pathology Report Patient Name: PIO HEARD [facility]. Rec. #: [id number] /Age/Gender: 1940 (Age: 78) / F Account: [id number] Location: [facility] SUR[facility]ICAL Taken: 04/05/2019 Received: 04/05/2019 Reported: 04/07/2019 Physicians: Thomas Hutchinson M.D. Specimen(s) Received TENOSYNOVIUM RIGHT HAND Clinical History Carpel tunnel right hand Final Diagnosis TENOSYNOVIUM RIGHT HAND, EXCISION: TENOSYNOVIAL TISSUE WITH FOCAL FIBROSIS. Electronically Signed Neri Scott M.D. Gross Description Received in formalin labeled "tenosynovium right hand," is a 1.7 x 1.5 x 0.3 cm aggregate of thompson-yellow portions of soft tissue, consistent with tenosynovium. The specimen is submitted in toto in one cassette. 04/06/201904/06/2019
== END 2019-04-05 13:30 | disposition home or self-care (01) ==
LOC: JASU-SURG 07:12
PROVIDERS: ATTEND Orthopaedic Surgery
PROC: 01N50ZZ Release Median Nerve, Open Approach (ICD-10-PCS; principal; 2019-04-05 09:00)
DX: G56.01 Carpal tunnel syndrome, right upper limb (principal); M65.9 Synovitis and tenosynovitis, unspecified
CPT/HCPCS: 88304-TC; 94760

== ENCOUNTER 2019-07-29 21:27 | Emergency (ER) | payer OTHER ==
[2019-07-29 21:59] VITALS: TEMP 98.1; BMI 34.3
--- NOTE | 2019-07-29 22:02 | PDOC ---
History of Present Illness - General Chief Complaint: Injury Stated Complaint: FALL Time Seen by Provider: 07/29/19 22:01 History Source: Patient Exam Limitations: No Limitations - History of Present Illness Initial Comments: 07/29/19 22:52 Pamela Roth is a 78yF w PMHx DM, arthritis, carpal tunnel, cataracts, L foot drop presenting from [facility] w head trauma s/p fall. This evening, she lost balance while standing up from toilet bowl and fell on her back lightly hitting her head on the ground. No LOC/vision change, not on blood thinners. Currently asymptomatic. Denies headache, nausea/vomiting, pain, chest pain/AB pain, hip pain, urinary/bowel mvmt changes. Not ambulating at baseline d/t foot drop. Past History - Past Medical History Allergies/Adverse Reactions: Allergies Allergy/AdvReac Type Severity Reaction Status Date / Time codeine Allergy Verified 07/29/19 21:57 Home Medications: Ambulatory Orders Alprazolam [Xanax Xr] 0.5 mg PO DAILY 06/18/16 Propylene Glycol/Peg 400/Pf [Systane 0.3-0.4% Eye Drops] 2 drop OU BID 06/18/16 Acetaminophen [Tylenol] 325 mg PO PRN 08/16/17 Calcium Carbonate/Vitamin D3 [Calcium 500-Vit D3 600 Tablet] 1 tab PO DAILY Alendronate Sodium/Vitamin D3 [Fosamax Plus D 70 mg-5,600 Iu vIT d] 1 each PO Q7D 04/07/18 Ascorbic Acid [Vitamin C] 500 mg PO DAILY 04/07/18 Aspirin [ASA -] 81 mg PO DAILY 04/07/18 Atorvastatin Ca [Lipitor] 10 mg PO HS 04/07/18 Carbidopa/Levodopa *Cr* 25/100 [Sinemet *Cr* 25/100 -] 1 combo PO TID 04/07/18 Clopidogrel Bisulfate [Plavix] 75 mg PO DAILY 04/07/18 Lactobacillus Acidophilus [Bacid -] 1 tab PO BID 04/07/18 Nitrofurantoin Monohyd/M-Cryst [Macrobid -] 100 mg PO HS 04/07/18 Polyethylene Glycol 3350 [Miralax 119 gm Btl -] 17 gm PO BID 04/07/18 Ranitidine HCl [Zantac] 150 mg PO HS 04/07/18 Sennosides [Senna] 2 tab PO BID 04/07/18 Calcium Carbonate/Vitamin D3 [Calcium 500 + Vit D Caplet] 1 each PO DAILY Cranberry Fruit Extract [Cranberry Extract] 1 gm MC DAILY 04/04/19 Gabapentin [Neurontin -] 100 mg PO BID 04/04/19 Heparin - 5,000 unit SQ BID 04/04/19 Lidocaine [Aspercreme Lidocaine] 1 each TP DAILY 04/04/19 Losartan Potassium [Cozaar -] 25 mg PO DAILY 04/04/19 Mag Hydrox/Al Hydrox/Simeth [Mylanta Oral Suspension -] 30 ml PO PRN 04/04/19 Piperacillin/Tazob 3.375 gm [Zosyn -] 3.375 gm IV Q6H 04/04/19 Pramipexole Di-HCl [Mirapex] 0.25 mg PO DAILY 04/04/19 Simethicone 80 mg PO BID 04/04/19 Hydrocodone/Acetaminophen [Hydrocodone-Acetamin 5-325 mg] 1 each PO Q6H #20 tablet MDD 4 04/05/19 Anemia: Yes COPD: No Diabetes: Yes (resolved) GI Disorders: Yes (gastro-esophageal reflux) HTN: Yes Psychiatric Problems: Yes (major depressive disorder) Thyroid Disease: Yes (Hypothyroidism) - Surgical History Cholecystectomy: Yes Orthopedic Surgery: Yes (HIP SX) - Immunization History Immunization Up to Date: Yes - Psycho Social/Smoking Cessation Hx Smoking History: Never smoked Have you smoked in the past 12 months: No Information on smoking cessation initiated: No Hx Alcohol Use: No Drug/Substance Use Hx: No Substance Use Type: Alcohol Hx Substance Use Treatment: No Review of Systems - Review of Systems Constitutional: No: Chills, Fever HEENTM: No: Eye Pain, Recent change in vision, Nose Pain, Throat Pain, Mouth Pain Respiratory: No: Cough, Shortness of Breath Cardiac (ROS): No: Chest Pain, Palpitations, Syncope ABD/GI: No: Abdominal Distended, Constipated, Diarrhea, Nausea, Vomiting : No: Burning, Dysuria, Flank Pain, Hematuria Musculoskeletal: No: Back Pain, Joint Pain, Muscle Pain, Muscle Weakness, Neck Pain, Joint Stiffness Integumentary: No: Bruising, Flushing, Lesions Neurological: No: Headache, Numbness, Seizure, Tingling, Tremors Psychiatric: No: Anxiety, Depression, Stressors Endocrine: No: Excessive Sweating, Flushing, Intolerance to Cold, Intolerance to Heat *Physical Exam - Vital Signs Last Vital Signs Temp Pulse Resp BP Pulse Ox 98.1 F 99 H 18 170/88 96 07/29/19 21:57 07/29/19 21:57 07/29/19 21:57 07/29/19 21:57 07/29/19 21:57 - Physical Exam General Appearance: Yes: Nourished, Appropriately Dressed. No: Apparent Distress HEENT: positive: EOMI, TIMI, Normal Voice, Hearing Grossly Normal. negative: Scleral Icterus (R), Scleral Icterus (L), Nasal Congestion, Sinus Tenderness Neck: positive: Trachea midline, Supple. negative: Tender, Rigid, Decreased range of motion Respiratory/Chest: positive: Lungs Clear, Normal Breath Sounds. negative: Chest Tender, Respiratory Distress, Crackles, Rales, Rhonchi, Stridor, Wheezing Cardiovascular: positive: Regular Rhythm, Regular Rate, S1, S2. negative: Edema , Murmur Gastrointestinal/Abdominal: positive: Normal Bowel Sounds, Flat, Soft. negative : Tender, Organomegaly, Distended, Guarding, Rebound, Tenderness, Hernia, Mass Musculoskeletal: positive: Normal Inspection. negative: CVA Tenderness, Muscle Spasm, Vertebral Tenderness Extremity: positive: Normal Capillary Refill Integumentary: positive: Normal Color Neurologic: positive: rn wellness II-XII NML intact, Fully Oriented, Alert, Normal Mood/ Affect, Normal Response, Motor Strength 5/5, Responsive. negative: Numbness, Sensory Deficit, Confused, Disoriented ED Treatment Course - LABORATORY CBC & Chemistry Diagram: 07/29/19 23:20 07/29/19 23:20 Medical Decision Making - Medical Decision Making 07/29/19 22:56 head/c-spine CT CBC CMP trop EKG showed NSR, HR 84, QTc 453 pt refused pain medication, not in pain. --- Pamela Roth is a 78yF w PMHx DM, arthritis, carpal tunnel, cataracts, L foot drop presenting from [facility] w head trauma s/p fall. Head/c-spine CT did not show acute bleed/infarct/fracture/dislocation. Low concern for ACS (NSR EKG , neg trop). Neuro intact. DC home w PCP f/u Discharge - Discharge Information Problems reviewed: Yes Clinical Impression/Diagnosis: Head trauma Qualifiers: Encounter type: initial encounter Qualified Code(s): S09.90XA - Unspecified injury of head, initial encounter Fall Qualifiers: Encounter type: initial encounter Qualified Code(s): W19.XXXA - Unspecified fall, initial encounter Condition: Good Disposition: HOME - Admission No - Follow up/Referral Referrals: Precious De León MD [Primary Care Provider] - - Patient Discharge Instructions Patient Printed Discharge Instructions: DI for Closed Head Injury Additional Instructions: You were seen after falling down. Your labs and imaging did not show anything concerning. Please follow up with your primary care doctor regarding your fall. Come back to the ED if you have worsening headache, vision change, or vomiting. - Post Discharge Activity
--- NOTE | 2019-07-29 22:54 | PDOC ---
Documentation entered by Shana Joe SCRIBE, acting as scribe for Ivonne Thornton MD. Ivonne Thornton MD: This documentation has been prepared by the Tatyana parnell Xhesika, SCRIBE, under my direction and personally reviewed by me in its entirety. I confirm that the documentation accurately reflects all work, treatment, procedures, and medical decision making performed by me. Attending Attestation - Resident Resident Name: Kehinde Best - ED Attending Attestation I have performed the following: I have examined & evaluated the patient, The case was reviewed & discussed with the resident, I agree w/resident's findings & plan, Exceptions are as noted - HPI HPI: 07/30/19 00:13 78 yo F presenting to the ER with a complaint of mechanical fall She was in he bathroom on the toilet and attempted to stand up and slipped She landed on her bottom Does not think she struck her head called for help, did not attempt to get up and ambulate - Physicial Exam PE: 07/29/19 22:29 GENERAL: The patient is in no acute distress, no signs of head trauma. ENT: Ears normal, nares patent, oropharynx clear without exudates. Moist mucous membranes. NECK: Normal range of motion, supple, no new midline tenderness to palpation LUNGS: Breath sounds equal, clear to auscultation bilaterally. No wheezes, and no crackles. HEART:Regular rate and rhythm, normal S1 and S2 without murmur, rub or gallop. ABDOMEN: Soft, nontender, normoactive bowel sounds. EXTREMITIES: Normal range of motion, no deformities noted, no limitations in range of motion at the hip, knees, and ankles NEUROLOGICAL: Cranial nerves II through XII grossly intact. Normal speech. No focal neurological deficits. SKIN: Warm, Dry, normal turgor, no rashes or lesions noted. 07/29/19 22:47 - Medical Decision Making 07/29/19 22:48 Likely mechanical fall Given age, possibly other underlying pathology - anemia, ACS Will do labs, EKG, CT head and C spine No xrays needed Likely d/c home 07/29/19 23:39 Laboratory Tests 07/29/19 23:20 WBC 6.0 Hgb 11.2 Hct 34.6 Plt Count 178 D 07/30/19 00:13 Laboratory Tests 07/29/19 07/29/19 23:20 23:20 BUN 33.6 H Creatinine 1.0 Creatine Kinase 160 Troponin I < 0.02 07/30/19 01:54 EKG: Normal sinus rhythm, rate of 84 bpm, axis is normal, intervals are normal, no ST elevation or depression, T waves are upright CT cervical spine: No fracture or dislocation CT head: pending Will likely discharge to home
[2019-07-29 23:33] LABS: BASO % 0.3 % (0-2.0); EOS % 1.7 % (0-4.5); HEMATOCRIT 34.6 % (32.4-45.2); HEMOGLOBIN 11.2 GM/dL (10.7-15.3); LYMPH % 22.7 % (8-40); MCH 27.2 pg (25.7-33.7); MCHC 32.4 g/dl (32.0-36.0); MEAN PLT VOLUME 8.7 fl (7.5-11.1); MONO % 6.1 % (3.8-10.2); NEUT % 69.2 % (42.8-82.8); PLATELET COUNT 178 K/MM3 (134-434); RBC 4.12 M/mm3 (3.60-5.2); RDW 14.4 % (11.6-15.6)
[2019-07-30 00:08] LABS: ALBUMIN 3.4 g/dl (3.4-5.0); BILIRUBIN,TOTAL 0.3 mg/dL (0.2-1); BLOOD UREA NITROGEN 33.6 mg/dL (7-18); CALCIUM 9.6 mg/dL (8.5-10.1); TOT PROT 7.1 g/dl (6.4-8.2)
[2019-07-30 02:11] VITALS: BP 152/82; PULSE 90
--- NOTE | 2019-07-31 00:58 | EKG ---
Test Reason : Blood Pressure : / mmHG Vent. Rate : 084 BPM Atrial Rate : 084 BPM P-R Int : 150 ms QRS Dur : 084 ms QT Int : 384 ms P-R-T Axes : 047 032 099 degrees QTc Int : 453 ms NORMAL SINUS RHYTHM NONSPECIFIC T WAVE ABNORMALITY ABNORMAL ECG WHEN COMPARED WITH ECG OF 29-OCT-2017 22:12, T WAVE VARIATION Confirmed by ABEBA CUEVAS MD ([id number]) on 07/31/2019 12:58:32 AM Referred By: Confirmed By:ABEBA CUEVAS MD
== END 2019-07-30 03:31 | disposition home or self-care (01) ==
LOC: JER 21:27
DX: S09.90XA Unspecified injury of head, initial encounter (principal); W18.39XA Other fall on same level, initial encounter; Y93.89 Activity, other specified; Y92.002 Bathroom of unspecified non-institutional (private) residence as the place of occurrence of the external cause; Z88.6 Allergy status to analgesic agent; E11.9 Type 2 diabetes mellitus without complications; G56.00 Carpal tunnel syndrome, unspecified upper limb; M21.379 Foot drop, unspecified foot; H26.9 Unspecified cataract
CPT/HCPCS: 36415; 70450-TC; 72125-TC; 80053; 82550; 82553; 84484; 85025; 93005; 93010; 99284-25

== ENCOUNTER 2019-07-31 17:18 | Inpatient (IN) | payer OTHER ==
[2019-07-31 17:31] VITALS: BMI 35.2
--- NOTE | 2019-07-31 18:00 | PDOC ---
History of Present Illness - General Chief Complaint: Weakness Stated Complaint: SLURRED SPEECH Time Seen by Provider: 07/31/19 17:30 - History of Present Illness Initial Comments: 07/31/19 18:06 The patient is a 78 year old female with a history of HTN, DM, major depression disorder who presents for evaluation of difficulty speaking. The patient reports that she experienced a fall 2 days ago for which she was evaluated in the ED and discharged at that time after a negative work up. She noted today around 3:30pm difficulty with word finding prompting her presentation to the ED for further evaluation. She otherwise denies headache, fevers, chills, SOB, chest pain, nausea, vomiting, abdominal pain, numbness, tingling, weakness, or changes with urination or bowel movements. tPA Exclusion checklist 3-4.5h - Time Elapsed Date last known well: 07/31/19 Time last known well: 15:30 Elaspsed time: 3 Day(s) and 18 Hour(s) and 6 Minutes - Thrombolytic Therapy Candidate Is patient eligible for thrombolytic therapy: No - Exclusion Criteria 3-4.5 hr Recent IC/spinal surgery,head trauma or stroke<3mos.: Yes - Relative Exclusion Criteria 3-4.5 hr Stroke severity too mild: Yes - Ineligibility reason(s) Reasons No tPA given: See reason(s) noted above NIH Stroke Scale - Last Known Well Date/Time & Onset Date Last Known Well: 07/31/19 Time Last Known Well: 15:30 - Initial Evaluation Level of consciousness: Alert Ask patient the month and their age: Answers both correctly Ask patient to open & close eyes; make fist and let go: Obeys both correctly Best gaze (horizontal eye movement): Normal Visual field testing: No visual field loss Facial paresis (Show teeth/raise eyebrows/close eyes tight): Normal symmetrical movement Motor Function: Left Arm: Normal Motor Function: Right Arm: Normal (extends arm 90 (or 45) degrees for 10 seconds without drift Motor Function: Left Leg: Some effort against gravity Motor Function: Right Leg: Some effort against gravity Limb Ataxia: No ataxia Sensory(Use pinprick test arms,legs,trunk,face/side to side): Normal Best language (Describe picture, name items, read sentences): Mild to moderate aphasia Dysarthria (read several words): Normal articulation Extinction and Inattention: No abnormality - Total Score NIH Stroke Scale Score: 5 Past History - Past Medical History Allergies/Adverse Reactions: Allergies Allergy/AdvReac Type Severity Reaction Status Date / Time codeine Allergy Verified 07/31/19 17:26 Home Medications: Ambulatory Orders Alprazolam [Xanax Xr] 0.5 mg PO DAILY 06/18/16 Propylene Glycol/Peg 400/Pf [Systane 0.3-0.4% Eye Drops] 2 drop OU BID 06/18/16 Acetaminophen [Tylenol] 325 mg PO PRN 08/16/17 Calcium Carbonate/Vitamin D3 [Calcium 500-Vit D3 600 Tablet] 1 tab PO DAILY Alendronate Sodium/Vitamin D3 [Fosamax Plus D 70 mg-5,600 Iu vIT d] 1 each PO Q7D 04/07/18 Ascorbic Acid [Vitamin C] 500 mg PO DAILY 04/07/18 Aspirin [ASA -] 81 mg PO DAILY 04/07/18 Atorvastatin Ca [Lipitor] 10 mg PO HS 04/07/18 Carbidopa/Levodopa *Cr* 25/100 [Sinemet *Cr* 25/100 -] 1 combo PO TID 04/07/18 Clopidogrel Bisulfate [Plavix] 75 mg PO DAILY 04/07/18 Lactobacillus Acidophilus [Bacid -] 1 tab PO BID 04/07/18 Nitrofurantoin Monohyd/M-Cryst [Macrobid -] 100 mg PO HS 04/07/18 Polyethylene Glycol 3350 [Miralax 119 gm Btl -] 17 gm PO BID 04/07/18 Ranitidine HCl [Zantac] 150 mg PO HS 04/07/18 Sennosides [Senna] 2 tab PO BID 04/07/18 Calcium Carbonate/Vitamin D3 [Calcium 500 + Vit D Caplet] 1 each PO DAILY Cranberry Fruit Extract [Cranberry Extract] 1 gm MC DAILY 04/04/19 Gabapentin [Neurontin -] 100 mg PO BID 04/04/19 Heparin - 5,000 unit SQ BID 04/04/19 Lidocaine [Aspercreme Lidocaine] 1 each TP DAILY 04/04/19 Losartan Potassium [Cozaar -] 25 mg PO DAILY 04/04/19 Mag Hydrox/Al Hydrox/Simeth [Mylanta Oral Suspension -] 30 ml PO PRN 04/04/19 Piperacillin/Tazob 3.375 gm [Zosyn -] 3.375 gm IV Q6H 04/04/19 Pramipexole Di-HCl [Mirapex] 0.25 mg PO DAILY 04/04/19 Simethicone 80 mg PO BID 04/04/19 Hydrocodone/Acetaminophen [Hydrocodone-Acetamin 5-325 mg] 1 each PO Q6H #20 tablet MDD 4 04/05/19 Anemia: Yes COPD: No Diabetes: Yes (resolved) GI Disorders: Yes (gastro-esophageal reflux) HTN: Yes Psychiatric Problems: Yes (major depressive disorder) Thyroid Disease: Yes (Hypothyroidism) - Surgical History Cholecystectomy: Yes Orthopedic Surgery: Yes (HIP SX) - Immunization History Td Vaccination: Yes TDAP Vaccination: Yes Immunization Up to Date: Yes - Psycho Social/Smoking Cessation Hx Smoking History: Never smoked Have you smoked in the past 12 months: No Hx Alcohol Use: No Drug/Substance Use Hx: No Substance Use Type: Alcohol Hx Substance Use Treatment: No Review of Systems - Review of Systems Comments:: 07/31/19 18:08 Constitutional: No fevers, chills, fatigue, malaise HEENT: No Rhinorrhea, nasal congestion, visual changes Cardiovascular: No chest pain, syncope, palpitations, lightheadedness Respiratory: No Cough, SOB, Hemoptysis, Gastrointestinal: No Abdominal pain, Nausea, Vomiting, Constipation, Diarrhea, Melena Genitourinary: No Dysuria, Frequency, Urgency, Hesitancy, Hematuria, Flank pain Musculoskeletal: No Myalgia, arthralgia Skin: No rashes, itching, bruising, pallor Neurologic: Speech difficulty. No Headache, Dizziness, Numbness, Weakness, or Tingling Psychiatric: No Hallucinations. No SI or HI *Physical Exam - Vital Signs Last Vital Signs Temp Pulse Resp BP Pulse Ox 97.2 F L 81 18 167/97 100 07/31/19 17:20 07/31/19 17:20 07/31/19 17:20 07/31/19 17:20 07/31/19 17:20 - Physical Exam 07/31/19 18:08 General Appearance: Nourished. No Apparent Distress HEENT: EOMI, TIMI. No Pharyngeal Erythema, Tonsillar Exudate, Tonsillar Erythema Neck: No Cervical Lymphadenopathy Respiratory/Chest: Lungs Clear, Normal Breath Sounds. No Crackles, Rales, Rhonchi, Wheezing Cardiovascular: Regular Rhythm, Regular Rate. No Murmur, Gallops, Rubs Gastrointestinal/Abdominal: Normal Bowel Sounds, Soft. No Guarding, Rebound, Tenderness Musculoskeletal: No CVA Tenderness Extremity: Normal Capillary Refill Integumentary: Normal Color, Dry, Warm Neurologic: tumbler operator II-XII NML intact, Fully Oriented, Alert, Normal Mood/Affect, Normal Response, Motor Strength 3/5 in the lower extremities bilaterally. Motor Strenght 5/5 in the upper extremities bilaterally. Some word finding difficulty noted on exam. ED Treatment Course - LABORATORY CBC & Chemistry Diagram: 08/01/19 05:20 08/01/19 05:20 Medical Decision Making - Medical Decision Making 07/31/19 18:12 The patient is a 78 year old female with a history of HTN, DM, major depression disorder who presents for evaluation of difficulty speaking. Given the patient' s history and physical exam, we will obtain a cbc, cmp, troponin, ekg, chest plain film, ua, head Ct to evaluate further. The patient was initially called as a Code Lopez on arrival to the Ed. Head CT was negative for acute pathology as read by our radiologist. We will consult with neurology given the patient's symptoms. She is not a TPa candidate at this time due to her symptoms being to mild and her recent head trauma 2 days ago. She will likely require admission for further monitoring and management. Discharge - Discharge Information Problems reviewed: Yes Clinical Impression/Diagnosis: Transient ischemic attack Condition: Stable Disposition: [facility] - Follow up/Referral - Patient Discharge Instructions - Post Discharge Activity
--- NOTE | 2019-07-31 18:02 | PDOC ---
History of Present Illness - General Chief Complaint: Weakness Stated Complaint: SLURRED SPEECH Past History - Past Medical History Allergies/Adverse Reactions: Allergies Allergy/AdvReac Type Severity Reaction Status Date / Time codeine Allergy Verified 07/31/19 17:26 Home Medications: Ambulatory Orders Alprazolam [Xanax Xr] 0.5 mg PO DAILY 06/18/16 Propylene Glycol/Peg 400/Pf [Systane 0.3-0.4% Eye Drops] 2 drop OU BID 06/18/16 Acetaminophen [Tylenol] 325 mg PO PRN 08/16/17 Calcium Carbonate/Vitamin D3 [Calcium 500-Vit D3 600 Tablet] 1 tab PO DAILY Alendronate Sodium/Vitamin D3 [Fosamax Plus D 70 mg-5,600 Iu vIT d] 1 each PO Q7D 04/07/18 Ascorbic Acid [Vitamin C] 500 mg PO DAILY 04/07/18 Aspirin [ASA -] 81 mg PO DAILY 04/07/18 Atorvastatin Ca [Lipitor] 10 mg PO HS 04/07/18 Carbidopa/Levodopa *Cr* 25/100 [Sinemet *Cr* 25/100 -] 1 combo PO TID 04/07/18 Clopidogrel Bisulfate [Plavix] 75 mg PO DAILY 04/07/18 Lactobacillus Acidophilus [Bacid -] 1 tab PO BID 04/07/18 Nitrofurantoin Monohyd/M-Cryst [Macrobid -] 100 mg PO HS 04/07/18 Polyethylene Glycol 3350 [Miralax 119 gm Btl -] 17 gm PO BID 04/07/18 Ranitidine HCl [Zantac] 150 mg PO HS 04/07/18 Sennosides [Senna] 2 tab PO BID 04/07/18 Calcium Carbonate/Vitamin D3 [Calcium 500 + Vit D Caplet] 1 each PO DAILY Cranberry Fruit Extract [Cranberry Extract] 1 gm MC DAILY 04/04/19 Gabapentin [Neurontin -] 100 mg PO BID 04/04/19 Heparin - 5,000 unit SQ BID 04/04/19 Lidocaine [Aspercreme Lidocaine] 1 each TP DAILY 04/04/19 Losartan Potassium [Cozaar -] 25 mg PO DAILY 04/04/19 Mag Hydrox/Al Hydrox/Simeth [Mylanta Oral Suspension -] 30 ml PO PRN 04/04/19 Piperacillin/Tazob 3.375 gm [Zosyn -] 3.375 gm IV Q6H 04/04/19 Pramipexole Di-HCl [Mirapex] 0.25 mg PO DAILY 04/04/19 Simethicone 80 mg PO BID 04/04/19 Hydrocodone/Acetaminophen [Hydrocodone-Acetamin 5-325 mg] 1 each PO Q6H #20 tablet MDD 4 04/05/19 Anemia: Yes COPD: No Diabetes: Yes (resolved) GI Disorders: Yes (gastro-esophageal reflux) HTN: Yes Psychiatric Problems: Yes (major depressive disorder) Thyroid Disease: Yes (Hypothyroidism) - Surgical History Cholecystectomy: Yes Orthopedic Surgery: Yes (HIP SX) - Immunization History Td Vaccination: Yes TDAP Vaccination: Yes Immunization Up to Date: Yes - Psycho Social/Smoking Cessation Hx Smoking History: Never smoked Have you smoked in the past 12 months: No Hx Alcohol Use: No Drug/Substance Use Hx: No Substance Use Type: Alcohol Hx Substance Use Treatment: No *Physical Exam - Vital Signs Last Vital Signs Temp Pulse Resp BP Pulse Ox 97.2 F L 81 18 167/97 100 07/31/19 17:20 07/31/19 17:20 07/31/19 17:20 07/31/19 17:20 07/31/19 17:20 Discharge - Follow up/Referral Referrals: Precious De León MD [Primary Care Provider] - - Patient Discharge Instructions - Post Discharge Activity
--- NOTE | 2019-07-31 18:07 | PDOC ---
Documentation entered by Mary Wayne SCRIBE, acting as scribe for Niharika Timmons MD. Niharika Timmons MD: This documentation has been prepared by the Rosana parnell Nirvannie, SCRIBE, under my direction and personally reviewed by me in its entirety. I confirm that the documentation accurately reflects all work, treatment, procedures, and medical decision making performed by me. Attending Attestation - Resident Resident Name: Volodymyr Knox - ED Attending Attestation I have performed the following: I have examined & evaluated the patient, The case was reviewed & discussed with the resident, I agree w/resident's findings & plan, Exceptions are as noted - HPI HPI: 07/31/19 18:03 78-year-old female brought in by ambulance for speech difficulties that occurred at 330 this afternoon. Patient had been seen in the emergency department 2 days ago for head trauma. - Physicial Exam PE: 07/31/19 18:04 [id number] female presents with complaint of difficulties speaking including word searching and slurred speech Head no scalp lacerations eyes Left eye blindness (chronic) neck supple lungs no wheezing,no crackles cvs [id number] abd protuberant skin warm and dry neuro axox3,chronic left lower foot weakness,L foot drop ,she cannot lift Rt leg off the bed,mild speech difficulties including word searching 07/31/19 18:17 - Medical Decision Making 07/31/19 18:07 CAT scan of the head does not show any acute intracranial pathology, no infarct , no bleed, no midline shift 07/31/19 18:14 Dr. Knox reports NIH stroke scale equal to 5 Patient does have a chronic left foot drop and she wears a brace for this - in reviewing her old charts from [address] Iain Valdez mentions this chronic left foot drop 07/31/19 19:04 Stroke is too mild for TPA and TPA will not be given 07/31/19 19:04 Consultation with neurology, Dr. Lorraine Mcneal was made and patient will be admitted
[2019-07-31] MEDS: SODIUM CHLORIDE 1,000 ML IV SCH (18:25)
[2019-07-31 18:50] LABS: BASO % 0.3 % (0-2.0); EOS % 2.3 % (0-4.5); HEMATOCRIT 38.6 % (32.4-45.2); HEMOGLOBIN 12.3 GM/dL (10.7-15.3); MCHC 31.8 g/dl (32.0-36.0); MEAN CELL VOLUME 84.9 fl (80-96); MEAN PLT VOLUME 9.1 fl (7.5-11.1); MONO % 5.8 % (3.8-10.2); NEUT % 59.6 % (42.8-82.8); PLATELET COUNT 202 K/MM3 (134-434); RBC 4.55 M/mm3 (3.60-5.2); RDW 14.8 % (11.6-15.6); WHITE BLOOD COUNT 5.8 K/mm3 (4.0-10.0)
--- NOTE | 2019-07-31 19:08 | PDOC ---
*Physical Exam - Vital Signs Last Vital Signs Temp Pulse Resp BP Pulse Ox 97.2 F L 81 18 167/97 100 07/31/19 17:20 07/31/19 17:20 07/31/19 17:20 07/31/19 17:20 07/31/19 17:20 ED Treatment Course - LABORATORY CBC & Chemistry Diagram: 07/31/19 18:10 07/31/19 18:10 - ADDITIONAL ORDERS Additional order review: 07/31/19 18:10 RBC 4.55 MCV 84.9 MCHC 31.8 L RDW 14.8 MPV 9.1 Neutrophils % 59.6 Lymphocytes % 32.0 D Monocytes % 5.8 Eosinophils % 2.3 Basophils % 0.3 Medical Decision Making - Medical Decision Making 07/31/19 19:08 Signed out from day team EKG shows NSR, HR 80, QTc 454, no ST changes CXR shows jose basilar opacities --- The patient is a 78 year old female with a history of HTN, HLD, DM, DVT on lovenox, arthritis, BLE neuropathy, spinal stenosis, CKD, hemorrhoids, major depression disorder who presents for evaluation of difficulty speaking. Leanne ha was called for concern for TIA. On re-eval, pt able to talk but endorses malaise and word finding difficulty. tPA not given d/t mild symptoms resolving and recent head trauma 2d ago. 1L NS given. No evidence of ACS (neg trop, NSR EKG) vs PNA (no consolidation on CXR). Pending UA. Consulted neuro paulette Buchanan pt admitted for brain MRI, TIA rule out Admitted to stroke Dr Baez for TIA Discharge - Discharge Information Problems reviewed: Yes Clinical Impression/Diagnosis: Transient ischemic attack Condition: Stable - Follow up/Referral - Patient Discharge Instructions - Post Discharge Activity
[2019-07-31 19:21] LABS: ALBUMIN 4.2 g/dl (3.4-5.0); BILIRUBIN,TOTAL 0.4 mg/dL (0.2-1); BLOOD UREA NITROGEN 27.8 mg/dL (7-18); CALCIUM 9.7 mg/dL (8.5-10.1); CREATININE 0.9 mg/dL (0.55-1.3); POTASSIUM 3.7 mmol/L (3.5-5.1); TOT PROT 8.6 g/dl (6.4-8.2)
[2019-07-31 19:23] LABS: CHOLESTEROL 178 mg/dL (50-200)
--- NOTE | 2019-07-31 20:58 | HP ---
Admitting History and Physical - Primary Care Physician PCP: Marielos Baez - Admission History of Present Illness: The patient is a 78 year old female with a history of HTN, DM, major depression disorder who presents for evaluation of difficulty speaking. The patient reports that she experienced a fall 2 days ago for which she was evaluated in the ED and discharged at that time after a negative work up. She noted today around 3:30pm difficulty with word finding prompting her presentation to the ED for further evaluation. She otherwise denies headache, fevers, chills, SOB, chest pain, nausea, vomiting, abdominal pain, numbness, tingling, weakness, or changes with urination or bowel movements. 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, Other (Spinal stenosis) Cardiovascular: Yes: HTN Hepatobiliary: Yes: Cholecystitis (s/p cholecystectomy in February 2014) Heme/Onc: Yes: Anemia Endocrine: Yes: Diabetes Mellitus - Past Surgical History Past Surgical History: Yes: Cholecystectomy - Smoking History Smoking history: Never smoked Have you smoked in the past 12 months: No - Alcohol/Substance Use Hx Alcohol Use: No History of Substance Use: reports: None - Social History ADL: Support Services History of Recent Travel: No Home Medications - Allergies Allergies/Adverse Reactions: Allergies Allergy/AdvReac Type Severity Reaction Status Date / Time codeine Allergy Verified 07/31/19 17:26 - Home Medications Home Medications: Ambulatory Orders Alprazolam [Xanax Xr] 0.5 mg PO DAILY 06/18/16 Propylene Glycol/Peg 400/Pf [Systane 0.3-0.4% Eye Drops] 2 drop OU BID 06/18/16 Acetaminophen [Tylenol] 325 mg PO PRN 08/16/17 Calcium Carbonate/Vitamin D3 [Calcium 500-Vit D3 600 Tablet] 1 tab PO DAILY Alendronate Sodium/Vitamin D3 [Fosamax Plus D 70 mg-5,600 Iu vIT d] 1 each PO Q7D 04/07/18 Ascorbic Acid [Vitamin C] 500 mg PO DAILY 04/07/18 Aspirin [ASA -] 81 mg PO DAILY 04/07/18 Atorvastatin Ca [Lipitor] 10 mg PO HS 04/07/18 Carbidopa/Levodopa *Cr* 25/100 [Sinemet *Cr* 25/100 -] 1 combo PO TID 04/07/18 Clopidogrel Bisulfate [Plavix] 75 mg PO DAILY 04/07/18 Lactobacillus Acidophilus [Bacid -] 1 tab PO BID 04/07/18 Nitrofurantoin Monohyd/M-Cryst [Macrobid -] 100 mg PO HS 04/07/18 Polyethylene Glycol 3350 [Miralax 119 gm Btl -] 17 gm PO BID 04/07/18 Ranitidine HCl [Zantac] 150 mg PO HS 04/07/18 Sennosides [Senna] 2 tab PO BID 04/07/18 Calcium Carbonate/Vitamin D3 [Calcium 500 + Vit D Caplet] 1 each PO DAILY Cranberry Fruit Extract [Cranberry Extract] 1 gm MC DAILY 04/04/19 Gabapentin [Neurontin -] 100 mg PO BID 04/04/19 Heparin - 5,000 unit SQ BID 04/04/19 Lidocaine [Aspercreme Lidocaine] 1 each TP DAILY 04/04/19 Losartan Potassium [Cozaar -] 25 mg PO DAILY 04/04/19 Mag Hydrox/Al Hydrox/Simeth [Mylanta Oral Suspension -] 30 ml PO PRN 04/04/19 Piperacillin/Tazob 3.375 gm [Zosyn -] 3.375 gm IV Q6H 04/04/19 Pramipexole Di-HCl [Mirapex] 0.25 mg PO DAILY 04/04/19 Simethicone 80 mg PO BID 04/04/19 Hydrocodone/Acetaminophen [Hydrocodone-Acetamin 5-325 mg] 1 each PO Q6H #20 tablet MDD 4 04/05/19 Physical Examination Vital Signs: Vital Signs Temperature 97.2 F L 07/31/19 17:20 Pulse Rate 81 07/31/19 17:20 Respiratory Rate 18 07/31/19 17:20 Blood Pressure 167/97 07/31/19 17:20 O2 Sat by Pulse Oximetry (%) 100 07/31/19 17:20 Constitutional: Yes: No Distress HENT: Yes: Atraumatic Neck: Yes: Supple Cardiovascular: Yes: Regular Rate and Rhythm Respiratory: Yes: CTA Bilaterally Gastrointestinal: Yes: Normal Bowel Sounds Extremities: Yes: WNL Edema: No Neurological: Yes: Alert, Oriented Labs: CBC, BMP 07/31/19 18:10 07/31/19 18:10 Problem List - Problems (1) HTN (hypertension) Code(s): I10 - ESSENTIAL (PRIMARY) HYPERTENSION (2) Transient ischemic attack Code(s): G45.9 - TRANSIENT CEREBRAL ISCHEMIC ATTACK, UNSPECIFIED (3) Diabetes Code(s): E11.9 - TYPE 2 DIABETES MELLITUS WITHOUT COMPLICATIONS Assessment/Plan Laboratory Tests 07/31/19 07/31/19 07/31/19 18:10 18:10 18:10 WBC 5.8 RBC 4.55 Hgb 12.3 Hct 38.6 MCV 84.9 MCH 27.0 MCHC 31.8 L RDW 14.8 Plt Count 202 MPV 9.1 Absolute Neuts (auto) 3.4 Neutrophils % 59.6 Lymphocytes % 32.0 D Monocytes % 5.8 Eosinophils % 2.3 Basophils % 0.3 Nucleated RBC % 0 Sodium 139 Potassium 3.7 Chloride 104 Carbon Dioxide 29 Anion Gap 7 L BUN 27.8 H Creatinine 0.9 Est GFR (CKD-EPI)AfAm 70.98 Est GFR (CKD-EPI)NonAf 61.24 Random Glucose 133 H Calcium 9.7 Total Bilirubin 0.4 AST 27 ALT 13 Alkaline Phosphatase 80 Creatine Kinase 179 Creatine Kinase Index 2.3 CK-MB (CK-2) 4.2 H Troponin I < 0.02 Total Protein 8.6 H Albumin 4.2 Triglycerides 69 Cholesterol 178 Total LDL Cholesterol HDL Cholesterol Blood Type Antibody Screen 07/31/19 07/31/19 07/31/19 18:10 18:10 18:10 WBC RBC Hgb Hct MCV MCH MCHC RDW Plt Count MPV Absolute Neuts (auto) Neutrophils % Lymphocytes % Monocytes % Eosinophils % Basophils % Nucleated RBC % Sodium Potassium Chloride Carbon Dioxide Anion Gap BUN Creatinine Est GFR (CKD-EPI)AfAm Est GFR (CKD-EPI)NonAf Random Glucose Calcium Total Bilirubin AST ALT Alkaline Phosphatase Creatine Kinase Creatine Kinase Index CK-MB (CK-2) Troponin I Total Protein Albumin Triglycerides Cholesterol Total LDL Cholesterol 85 HDL Cholesterol 84 H Blood Type AB POSITIVE Antibody Screen Negative Active Medications Generic Name Dose Route Start Last Admin Trade Name Freq PRN Reason Stop Dose Admin Sodium Chloride 1,000 mls @ 42 mls/hr 07/31/19 17:30 07/31/19 18:25 Normal Saline - IV 42 mls/hr ASDIR ESHA Administration
[2019-07-31] MEDS ORDERED: CARBIDOPA/LEVODOPA 25/100 TABLET (FP) ONE (22:38)
[2019-07-31] MEDS ORDERED: HEPARIN NA (PORCINE) 5,000 UNITS/ML 1ML VIAL ONE (22:38)
[2019-07-31] MEDS ORDERED: ATORVASTATIN CA 10 MG TABLET (FP) ONE (22:38)
[2019-07-31] MEDS: HEPARIN NA (PORCINE) 5,000 UNITS/ML 1ML VIAL SQ SCH (22:43)
[2019-07-31] MEDS: ATORVASTATIN CA 10 MG TABLET (FP) PO SCH (22:44)
[2019-08-01 06:27] LABS: BASO % 0.3 % (0-2.0); EOS % 1.2 % (0-4.5); HEMATOCRIT 33.6 % (32.4-45.2); HEMOGLOBIN 10.9 GM/dL (10.7-15.3); LYMPH % 23.3 % (8-40); MCHC 32.4 g/dl (32.0-36.0); MEAN CELL VOLUME 83.4 fl (80-96); MONO % 5.6 % (3.8-10.2); NEUT % 69.6 % (42.8-82.8); PLATELET COUNT 191 K/MM3 (134-434); RBC 4.02 M/mm3 (3.60-5.2); RDW 14.5 % (11.6-15.6); WHITE BLOOD COUNT 5.2 K/mm3 (4.0-10.0)
[2019-08-01 06:40] LABS: ALBUMIN 3.5 g/dl (3.4-5.0); BILIRUBIN,TOTAL 0.4 mg/dL (0.2-1); BLOOD UREA NITROGEN 26.1 mg/dL (7-18); CALCIUM 8.8 mg/dL (8.5-10.1); CREATININE 0.9 mg/dL (0.55-1.3); POTASSIUM 3.5 mmol/L (3.5-5.1)
[2019-08-01] MEDS ORDERED: PT OWN MED DRAWER 7, Y5N ONE (07:45)
[2019-08-01] MEDS ORDERED: ASPIRIN 81 MG CHEWABLE TABLETS ONE (07:46)
[2019-08-01] MEDS ORDERED: CARBIDOPA/LEVODOPA 25/100 TABLET (FP) ONE (07:47)
[2019-08-01] MEDS ORDERED: CLOPIDOGREL BISULFATE 75 MG TABLET (FP) ONE (07:47)
[2019-08-01] MEDS ORDERED: HEPARIN NA (PORCINE) 5,000 UNITS/ML 1ML VIAL ONE (07:47)
--- NOTE | 2019-08-01 08:45 | CONSULT ---
Consult - text type - Consultation Consultation Note: Neurology History of Present Illness: The patient is a 78 year old female with a history of HTN, DM, major depression disorder who presents for evaluation of difficulty speaking. The patient reported that she experienced a fall 2 days prior to admission for which she was evaluated in the ED and discharged at that time after a negative work up. She noted on day of admission around 3:30pm difficulty with word finding prompting her presentation to the ED for further evaluation. She otherwise denies headache, fevers, chills, SOB, chest pain, nausea, vomiting, abdominal pain, numbness, tingling, weakness, or changes with urination or bowel movements. LDL level 84, patient on statin 10mg. Patient also on plavix and aspirin. Head CT completed with no acute pathology. This AM, ddoes not have dysarthria but does seem to have some tangential thought process. Brain MRI without contrast ordered to rule out stroke. Patient was in agreement. 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: Peripheral Neuropathy, Other (Spinal stenosis) Cardiovascular: Yes: HTN Hepatobiliary: Yes: Cholecystitis (s/p cholecystectomy in February 2014) Heme/Onc: Yes: Anemia Endocrine: Yes: Diabetes Mellitus - Past Surgical History Past Surgical History: Yes: Cholecystectomy - Smoking History Smoking history: Never smoked Have you smoked in the past 12 months: No - Alcohol/Substance Use Hx Alcohol Use: No History of Substance Use: reports: None - Social History ADL: Support Services History of Recent Travel: No REVIEW OF SYSTEMS CONSTITUTIONAL: Absent: fever, chills, diaphoresis, + generalized weakness, malaise HEENT: Absent: rhinorrhea, nasal congestion, throat pain, throat swelling, difficulty swallowing, mouth swelling, ear pain, eye pain, visual changes CARDIOVASCULAR: Absent: chest pain, syncope, palpitations, irregular heart rate, lightheadedness , peripheral edema RESPIRATORY: Absent: cough, shortness of breath, dyspnea with exertion, orthopnea, wheezing, stridor, hemoptysis GASTROINTESTINAL: Absent: abdominal pain, abdominal distension, nausea GENITOURINARY: Absent: dysuria, frequency, urgency, MUSCULOSKELETAL: Absent: myalgia, SKIN: Absent: rash, itching, pallor HEMATOLOGIC/IMMUNOLOGIC: Absent: easy bleeding, easy bruising, lymphadenopathy, frequent infections ENDOCRINE: Absent: unexplained weight gain, unexplained weight loss, heat intolerance, cold intolerance NEUROLOGIC: Absent: headache, focal weakness or paresthesias, dizziness, seizure, PSYCHIATRIC: Absent: anxiety, depression, suicidal or homicidal ideation, hallucinations. Home Medications - Allergies Allergies/Adverse Reactions: Allergies Allergy/AdvReac Type Severity Reaction Status Date / Time codeine Allergy Verified 07/31/19 17:26 Ambulatory Orders Alprazolam [Xanax Xr] 0.5 mg PO DAILY 06/18/16 Propylene Glycol/Peg 400/Pf [Systane 0.3-0.4% Eye Drops] 2 drop OU BID 06/18/16 Acetaminophen [Tylenol] 325 mg PO PRN 08/16/17 Calcium Carbonate/Vitamin D3 [Calcium 500-Vit D3 600 Tablet] 1 tab PO DAILY Alendronate Sodium/Vitamin D3 [Fosamax Plus D 70 mg-5,600 Iu vIT d] 1 each PO Q7D 04/07/18 Ascorbic Acid [Vitamin C] 500 mg PO DAILY 04/07/18 Aspirin [ASA -] 81 mg PO DAILY 04/07/18 Atorvastatin Ca [Lipitor] 10 mg PO HS 04/07/18 Carbidopa/Levodopa *Cr* 25/100 [Sinemet *Cr* 25/100 -] 1 combo PO TID 04/07/18 Clopidogrel Bisulfate [Plavix] 75 mg PO DAILY 04/07/18 Lactobacillus Acidophilus [Bacid -] 1 tab PO BID 04/07/18 Nitrofurantoin Monohyd/M-Cryst [Macrobid -] 100 mg PO HS 04/07/18 Polyethylene Glycol 3350 [Miralax 119 gm Btl -] 17 gm PO BID 04/07/18 Ranitidine HCl [Zantac] 150 mg PO HS 04/07/18 Sennosides [Senna] 2 tab PO BID 04/07/18 Calcium Carbonate/Vitamin D3 [Calcium 500 + Vit D Caplet] 1 each PO DAILY Cranberry Fruit Extract [Cranberry Extract] 1 gm MC DAILY 04/04/19 Gabapentin [Neurontin -] 100 mg PO BID 04/04/19 Heparin - 5,000 unit SQ BID 04/04/19 Lidocaine [Aspercreme Lidocaine] 1 each TP DAILY 04/04/19 Losartan Potassium [Cozaar -] 25 mg PO DAILY 04/04/19 Mag Hydrox/Al Hydrox/Simeth [Mylanta Oral Suspension -] 30 ml PO PRN 04/04/19 Piperacillin/Tazob 3.375 gm [Zosyn -] 3.375 gm IV Q6H 04/04/19 Pramipexole Di-HCl [Mirapex] 0.25 mg PO DAILY 04/04/19 Simethicone 80 mg PO BID 04/04/19 Hydrocodone/Acetaminophen [Hydrocodone-Acetamin 5-325 mg] 1 each PO Q6H #20 tablet MDD 4 04/05/19 Active Medications Aspirin (Asa -) 81 mg PO DAILY [facility] Atorvastatin Calcium (Lipitor -) 10 mg PO HS [facility] Last Admin: 07/31/19 22:44 Dose: 10 mg Carbidopa/Levodopa (Sinemet *Cr* 25/100 -) 1 combo PO TID [facility] Last Admin: 08/01/19 08:35 Dose: 1 combo Clopidogrel Bisulfate (Plavix -) 75 mg PO DAILY [facility] Heparin Sodium (Porcine) (Heparin -) 5,000 unit SQ BID [facility] Last Admin: 07/31/19 22:43 Dose: 5,000 unit Sodium Chloride (Normal Saline -) 1,000 mls @ 42 mls/hr IV ASDIR [facility] Last Admin: 07/31/19 18:25 Dose: 42 mls/hr Physical Examination Vital Signs: Vital Signs Period Temp Pulse Resp BP Sys/Manley Pulse Ox Last 24 Hr 97.0 F-97.2 F 81-89 17-18 150-167/68-97 96-100 Constitutional: Yes: No Distress HENT: Yes: Atraumatic Neck: Yes: Supple Cardiovascular: Yes: Regular Rate and Rhythm Respiratory: Yes: CTA Bilaterally Gastrointestinal: Yes: Normal Bowel Sounds Extremities: Yes: WNL Edema: No Neurological: Head atraumatic and normocephalic CN: PERRL, EOMI intact, no apparent facial droop, no abnormalities in facial sensation, palate elevates, uvula and tongue midline Motor: Strength intact to confrontation in upper and lower extremities. Tone normal throughout Sensory: Intact to Temperature Reflexes: 2+ biceps, brachioradialis, patellar, achillies Coordination: Intact on [id number] testing Gait: deferred Labs: CBCD WBC 5.2 K/mm3 (4.0-10.0) 08/01/19 05:20 RBC 4.02 M/mm3 (3.60-5.2) 08/01/19 05:20 Hgb 10.9 GM/dL (10.7-15.3) 08/01/19 05:20 Hct 33.6 % (32.4-45.2) 08/01/19 05:20 MCV 83.4 fl (80-96) 08/01/19 05:20 MCHC 32.4 g/dl (32.0-36.0) 08/01/19 05:20 RDW 14.5 % (11.6-15.6) 08/01/19 05:20 Plt Count 191 K/MM3 (134-434) 08/01/19 05:20 MPV 9.0 fl (7.5-11.1) 08/01/19 05:20 CMP Sodium 141 mmol/L (136-145) 08/01/19 05:20 Potassium 3.5 mmol/L (3.5-5.1) 08/01/19 05:20 Chloride 108 mmol/L (98-107) H 08/01/19 05:20 Carbon Dioxide 24 mmol/L (21-32) 08/01/19 05:20 Anion Gap 10 MMOL/L (8-16) 08/01/19 05:20 BUN 26.1 mg/dL (7-18) H 08/01/19 05:20 Creatinine 0.9 mg/dL (0.55-1.3) 08/01/19 05:20 Random Glucose 155 mg/dL (74-106) H 08/01/19 05:20 Calcium 8.8 mg/dL (8.5-10.1) 08/01/19 05:20 Total Bilirubin 0.4 mg/dL (0.2-1) 08/01/19 05:20 AST 22 U/L (15-37) 08/01/19 05:20 ALT 10 U/L (13-61) L 08/01/19 05:20 Alkaline Phosphatase 66 U/L (45-117) 08/01/19 05:20 Total Protein 7.0 g/dl (6.4-8.2) 08/01/19 05:20 Albumin 3.5 g/dl (3.4-5.0) 08/01/19 05:20 CARDIAC ENZYMES Creatine Kinase 116 U/L (26-192) 08/01/19 01:33 Troponin I < 0.02 ng/ml (0.00-0.05) 08/01/19 01:33 PLAN/ASSESSMENT The patient is a 78 year old female with a history of HTN, DM, major depression disorder who presents for evaluation of difficulty speaking. The patient reported that she experienced a fall 2 days prior to admission for which she was evaluated in the ED and discharged at that time after a negative work up. She noted on day of admission around 3:30pm difficulty with word finding prompting her presentation to the ED for further evaluation. She otherwise denies headache, fevers, chills, SOB, chest pain, nausea, vomiting, abdominal pain, numbness, tingling, weakness, or changes with urination or bowel movements. LDL level 84, patient on statin 10mg. Patient also on plavix and aspirin. Head CT completed with no acute pathology. This AM, ddoes not have dysarthria but does seem to have some tangential thought process. Brain MRI without contrast ordered to rule out stroke. Patient was in agreement. No other focal deficits noted,, neurologically otherwise at baseline. Monitor blood pressure, maintain < 160/90, continue ASA 81, Plavix 75. Continue statin. Follow up LDL. Monitor glucose, maintain euglycemic range,, continue diabetes medications.
--- NOTE | 2019-08-01 09:07 | EKG ---
Test Reason : Blood Pressure : / mmHG Vent. Rate : 080 BPM Atrial Rate : 080 BPM P-R Int : 140 ms QRS Dur : 084 ms QT Int : 394 ms P-R-T Axes : 048 021 070 degrees QTc Int : 454 ms NORMAL SINUS RHYTHM ANTERIOR INFARCT , AGE UNDETERMINED ABNORMAL ECG WHEN COMPARED WITH ECG OF 30-JUL-2019 01:50, ANTERIOR INFARCT IS NOW PRESENT Confirmed by Sb Berman MD ([id number]) on 08/01/2019 9:06:47 AM Referred By: Confirmed By:Sb Berman MD
[2019-08-01 10:10] LABS: HYALINE CASTS 14 /lpf (0-8); PH,URINE 6.5 (5.0-8.0); URINE APPEARANCE CLOUDY; URINE BACTERIA 937.7 /hpf (NEGATIVE); URINE BILIRUBIN NEGATIVE (NEGATIVE); URINE COLOR YELLOW; URINE GLUCOSE (UA) NEGATIVE (NEGATIVE); URINE KETONE NEGATIVE (NEGATIVE); URINE LEUK ESTERASE 2+ (NEGATIVE); URINE NITRITE POSITIVE (NEGATIVE); URINE PROTEIN TRACE (NEGATIVE); URINE RBC 12 /hpf (0-4); URINE UROBILINOGEN 0.2 mg/dL (0.2-1.0); URINE WBC 104 /hpf (0-5)
[2019-08-01] MEDS: HEPARIN NA (PORCINE) 5,000 UNITS/ML 1ML VIAL SQ SCH ×2 (10:13→22:57)
[2019-08-01] MEDS: CLOPIDOGREL BISULFATE 75 MG TABLET (FP) PO SCH (10:13)
[2019-08-01] MEDS: ASPIRIN 81 MG CHEWABLE TABLETS PO SCH (10:13)
--- NOTE | 2019-08-01 14:27 | CONSULT ---
Admitting History and Physical - Primary Care Physician PCP: Marielos Baez - Admission History of Present Illness: 78 year old female with a history of HTN, DM, major depression disorder , anxiety disorder who presented to ED with difficulty finding words. CT head (-) Urinalysis noted- reviewed with nursing. Pt oriented, tells me she lives at [facility], year is 2020, Xmas, Dec, Speaks with impaired word retrieval, dysfluency, reports feeling very nervous. She is paranoid-like. This is my first consult with this pt. 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, Other (Spinal stenosis) Cardiovascular: Yes: HTN Hepatobiliary: Yes: Cholecystitis (s/p cholecystectomy in February 2014) Heme/Onc: Yes: Anemia Endocrine: Yes: Diabetes Mellitus - Past Surgical History Past Surgical History: Yes: Cholecystectomy - Smoking History Smoking history: Never smoked Have you smoked in the past 12 months: No - Alcohol/Substance Use Hx Alcohol Use: No History of Substance Use: reports: None - Social History ADL: Support Services History of Recent Travel: No History - Admission Reason For Visit: TRANSIENT ISCHEMIC ATTACK - Diagnostics X-ray: Report Reviewed CT Scan: Report Reviewed Other: Report Reviewed (urinalysis) - General Mental Status: Alert and Oriented, Awake and Alert, Able to Follow Commands, Anxious, Vague Attention: Distractible, Mild Impairment Ability to Follow Directions: Good Head/Neck Control: WFL - Hearing Hearing: Functional Speech Evaluation - Communication Primary Language: THAI Oral Expression Ability: Yes: Mild Impairment - Speech Production Able to Make Needs Known: Yes: Mildly Impaired Intelligibility: Yes: WNL - Speech Characteristics Voice Loudness: Normal Voice Pitch: Yes: Normal Voice Phonatory-based Quality: Yes: Normal Speech Pattern: Normal Speech Clarity: < 100% Nasal Resonance: Normal Articulation: Yes: Precise Dysfluency: Yes: Clonic Rate of Speech: Too Fast - Language/Auditory Comprehension Follows: Yes: 1 Stage Simple Commands Observation: Able to respond to yes/no queries: Yes, Yes/No Confusion: No, Comprehends Conversational Speech: Yes - Language/Verbal Expression Aphasia: Yes: Anomia Able to Respond to Simple Queries: Yes: Mildly Impaired Able to Communicate Wants and Needs: Yes: Mildly Impaired Functional Communication Status: Yes: Mildly Impaired - Memory/Perception Short Term Memory: Yes: WNL - Swallow Evaluation/Bedside Assessment Current Nutritional Intake: NPO, Soft Oral Secretions: Yes: WFL Dentition: Yes: Adequate Facial Symmetry at Rest: Symmetrical Facial Symmetry on Retraction: Symmetrical Against Resistance Opening: Normal Against Resistance Closing: Normal Pucker Lips: Normal Smile: Normal Lingual Movement: Normal, Symmetric Lingual Speed of Movement: Normal Lingual Movement Strgth Against Opposition: Normal Lingual Movement Characteristics: Normal Velopharyngeal Movement: Normal Laryngeal Elevation: WFL Laryngeal Movement: Able to Palpate Rate of Intake: WFL Bolus Size: WFL Labial Seal: WFL Chewing: WFL Oral Prep Time: WFL A-P Transit: WFL Timing of Swallow: WFL Coughing/Throat Clear: No Change in Voice: No Recommendations - Speech Evaluation, Impression/Plan Impression: Word retrieval difficulty, rapid speech with dysfluency,anxious, paranoid-like. Oriented to "lives at [facility], as, " - Dysphagia Impressions/Plan Swallowing Skills: WF Dysphagia Impressions: No Impairment *Silent aspiration: cannot be R/O at bedside - Recommendations Diet Consistency: Regular Medication Administration: Whole with water Liquids: Thin Liquids
[2019-08-01] MEDS: SODIUM CHLORIDE 1,000 ML IV SCH (17:56)
--- NOTE | 2019-08-01 18:07 | PN ---
Progress Note, Physician - Current Medication List Current Medications: Active Medications Aspirin (Asa -) 81 mg PO DAILY [facility] Last Admin: 08/01/19 10:13 Dose: 81 mg Atorvastatin Calcium (Lipitor -) 10 mg PO HS [facility] Last Admin: 07/31/19 22:44 Dose: 10 mg Carbidopa/Levodopa (Sinemet *Cr* 25/100 -) 1 combo PO TID [facility] Last Admin: 08/01/19 17:52 Dose: 1 combo Clopidogrel Bisulfate (Plavix -) 75 mg PO DAILY [facility] Last Admin: 08/01/19 10:13 Dose: 75 mg Heparin Sodium (Porcine) (Heparin -) 5,000 unit SQ BID [facility] Last Admin: 08/01/19 10:13 Dose: 5,000 unit Sodium Chloride (Normal Saline -) 1,000 mls @ 42 mls/hr IV ASDIR [facility] Last Admin: 08/01/19 17:56 Dose: 42 mls/hr - Objective Vital Signs: Vital Signs Temperature 98.6 F 08/01/19 16:56 Pulse Rate 92 H 08/01/19 16:56 Respiratory Rate 20 08/01/19 16:56 Blood Pressure 164/93 08/01/19 16:56 O2 Sat by Pulse Oximetry (%) 99 08/01/19 16:56 Constitutional: Yes: No Distress HENT: Yes: Atraumatic Cardiovascular: Yes: Regular Rate and Rhythm Respiratory: Yes: CTA Bilaterally Gastrointestinal: Yes: Normal Bowel Sounds Extremities: Yes: WNL Neurological: Yes: Alert, Oriented Labs: CBC, BMP 08/01/19 05:20 08/01/19 05:20 Problem List - Problems (1) HTN (hypertension) Assessment/Plan: monitor bp Code(s): I10 - ESSENTIAL (PRIMARY) HYPERTENSION (2) Transient ischemic attack Code(s): G45.9 - TRANSIENT CEREBRAL ISCHEMIC ATTACK, UNSPECIFIED (3) Diabetes Code(s): E11.9 - TYPE 2 DIABETES MELLITUS WITHOUT COMPLICATIONS
[2019-08-01] MEDS: ATORVASTATIN CA 10 MG TABLET (FP) PO SCH (22:57)
[2019-08-01] MEDS ORDERED: LORazepam 1 MG TABLET PO ONE (23:15)
[2019-08-02] MEDS ORDERED: LORazepam 2 MG/ML SDV VIAL IVPUSH ONE (01:12)
--- NOTE | 2019-08-02 09:18 | PN ---
Progress Note (short form) - Note Progress Note: Neurology History of Present Illness: The patient is a 78 year old female with a history of HTN, DM, major depression disorder who presents for evaluation of difficulty speaking. The patient reported that she experienced a fall 2 days prior to admission for which she was evaluated in the ED and discharged at that time after a negative work up. She noted on day of admission around 3:30pm difficulty with word finding prompting her presentation to the ED for further evaluation. She otherwise denies headache, fevers, chills, SOB, chest pain, nausea, vomiting, abdominal pain, numbness, tingling, weakness, or changes with urination or bowel movements. LDL level 84, patient on statin 10mg. Patient also on plavix and aspirin. Head CT completed with no acute pathology. This AM, more somnolent due to Ativan she was given overnight. iscussed with nurse and patient was not able to tolerate MRI of the brain due to confusion and agitation. I was contacted by overnight nurse and recommended having noncontrast head CT completed insteadwhich I reviewed and did not show any acute changes or evidence of infarct. No other focal deficits noted,, neurologically otherwise at baseline, possibly for discharge as per primary. Should maintain outpatient follow-up. Active Medications Aspirin (Asa -) 81 mg PO DAILY [facility] Last Admin: 08/01/19 10:13 Dose: 81 mg Atorvastatin Calcium (Lipitor -) 10 mg PO HS [facility] Last Admin: 08/01/19 22:57 Dose: 10 mg Carbidopa/Levodopa (Sinemet *Cr* 25/100 -) 1 combo PO TID [facility] Last Admin: 08/02/19 07:00 Dose: Not Given Clopidogrel Bisulfate (Plavix -) 75 mg PO DAILY [facility] Last Admin: 08/01/19 10:13 Dose: 75 mg Heparin Sodium (Porcine) (Heparin -) 5,000 unit SQ BID [facility] Last Admin: 08/01/19 22:57 Dose: Not Given Sodium Chloride (Normal Saline -) 1,000 mls @ 42 mls/hr IV ASDIR [facility] Last Admin: 08/01/19 17:56 Dose: 42 mls/hr Physical Examination Vital Signs: Vital Signs Period Temp Pulse Resp BP Sys/Manley Pulse Ox Last 24 Hr 97.5 F-98.9 F 77-102 17-20 131-179/58-100 97-100 Constitutional: Yes: No Distress HENT: Yes: Atraumatic Neck: Yes: Supple Cardiovascular: Yes: Regular Rate and Rhythm Respiratory: Yes: CTA Bilaterally Gastrointestinal: Yes: Normal Bowel Sounds Extremities: Yes: WNL Edema: No Neurological: Head atraumatic and normocephalic CN: PERRL, EOMI intact, no apparent facial droop, no abnormalities in facial sensation, palate elevates, uvula and tongue midline Motor: Strength intact to confrontation in upper and lower extremities. Tone normal throughout Sensory: Intact to Temperature Reflexes: 2+ biceps, brachioradialis, patellar, achillies Coordination: Intact on [id number] testing Gait: deferred CBCD WBC 5.2 K/mm3 (4.0-10.0) 08/01/19 05:20 RBC 4.02 M/mm3 (3.60-5.2) 08/01/19 05:20 Hgb 10.9 GM/dL (10.7-15.3) 08/01/19 05:20 Hct 33.6 % (32.4-45.2) 08/01/19 05:20 MCV 83.4 fl (80-96) 08/01/19 05:20 MCHC 32.4 g/dl (32.0-36.0) 08/01/19 05:20 RDW 14.5 % (11.6-15.6) 08/01/19 05:20 Plt Count 191 K/MM3 (134-434) 08/01/19 05:20 MPV 9.0 fl (7.5-11.1) 08/01/19 05:20 CMP Sodium 141 mmol/L (136-145) 08/01/19 05:20 Potassium 3.5 mmol/L (3.5-5.1) 08/01/19 05:20 Chloride 108 mmol/L (98-107) H 08/01/19 05:20 Carbon Dioxide 24 mmol/L (21-32) 08/01/19 05:20 Anion Gap 10 MMOL/L (8-16) 08/01/19 05:20 BUN 26.1 mg/dL (7-18) H 08/01/19 05:20 Creatinine 0.9 mg/dL (0.55-1.3) 08/01/19 05:20 Random Glucose 155 mg/dL (74-106) H 08/01/19 05:20 Calcium 8.8 mg/dL (8.5-10.1) 08/01/19 05:20 Total Bilirubin 0.4 mg/dL (0.2-1) 08/01/19 05:20 AST 22 U/L (15-37) 08/01/19 05:20 ALT 10 U/L (13-61) L 08/01/19 05:20 Alkaline Phosphatase 66 U/L (45-117) 08/01/19 05:20 Total Protein 7.0 g/dl (6.4-8.2) 08/01/19 05:20 Albumin 3.5 g/dl (3.4-5.0) 08/01/19 05:20 CARDIAC ENZYMES Creatine Kinase 116 U/L (26-192) 08/01/19 01:33 Troponin I < 0.02 ng/ml (0.00-0.05) 08/01/19 01:33 PLAN/ASSESSMENT The patient is a 78 year old female with a history of HTN, DM, major depression disorder who presents for evaluation of difficulty speaking. The patient reported that she experienced a fall 2 days prior to admission for which she was evaluated in the ED and discharged at that time after a negative work up. She noted on day of admission around 3:30pm difficulty with word finding prompting her presentation to the ED for further evaluation. She otherwise denies headache, fevers, chills, SOB, chest pain, nausea, vomiting, abdominal pain, numbness, tingling, weakness, or changes with urination or bowel movements. LDL level 84, patient on statin 10mg. Patient also on plavix and aspirin. Head CT completed with no acute pathology. This AM, more somnolent due to Ativan she was given overnight. iscussed with nurse and patient was not able to tolerate MRI of the brain due to confusion and agitation. I was contacted by overnight nurse and recommended having noncontrast head CT completed insteadwhich I reviewed and did not show any acute changes or evidence of infarct. No other focal deficits noted,, neurologically otherwise at baseline, possibly for discharge as per primary. Should maintain outpatient follow-up. Monitor blood pressure, maintain < 140/90, continue ASA 81, Plavix 75. Continue statin. Follow up LDL. Monitor glucose, maintain euglycemic range,, continue diabetes medications.
--- NOTE | 2019-08-02 09:31 | DS ---
Physical Examination Vital Signs: Vital Signs Temperature 98.9 F 08/02/19 06:00 Pulse Rate 90 08/02/19 06:00 Respiratory Rate 19 08/02/19 06:00 Blood Pressure 134/68 08/02/19 06:00 O2 Sat by Pulse Oximetry (%) 97 08/01/19 21:00 Constitutional: Yes: Calm HENT: Yes: Atraumatic Neck: Yes: Supple Cardiovascular: Yes: Regular Rate and Rhythm Respiratory: Yes: CTA Bilaterally Gastrointestinal: Yes: Normal Bowel Sounds Extremities: Yes: WNL Neurological: Yes: Alert Labs: CBC, BMP 08/01/19 05:20 08/01/19 05:20 Discharge Summary Problems reviewed: Yes Reason For Visit: TRANSIENT ISCHEMIC ATTACK Current Active Problems HTN (hypertension) (Acute) Transient ischemic attack (Acute) Condition: Stable - Instructions Referrals: Christopher Foster MD [Staff Physician] - Precious De León MD [Primary Care Provider] - Disposition: [facility] - Home Medications Comprehensive Discharge Medication List: Ambulatory Orders Alprazolam [Xanax Xr] 0.5 mg PO DAILY 06/18/16 Propylene Glycol/Peg 400/Pf [Systane 0.3-0.4% Eye Drops] 2 drop OU BID 06/18/16 Acetaminophen [Tylenol] 325 mg PO PRN 08/16/17 Calcium Carbonate/Vitamin D3 [Calcium 500-Vit D3 600 Tablet] 1 tab PO DAILY Alendronate Sodium/Vitamin D3 [Fosamax Plus D 70 mg-5,600 Iu vIT d] 1 each PO Q7D 04/07/18 Ascorbic Acid [Vitamin C] 500 mg PO DAILY 04/07/18 Aspirin [ASA -] 81 mg PO DAILY 04/07/18 Atorvastatin Ca [Lipitor] 10 mg PO HS 04/07/18 Carbidopa/Levodopa *Cr* 25/100 [Sinemet *Cr* 25/100 -] 1 combo PO TID 04/07/18 Clopidogrel Bisulfate [Plavix] 75 mg PO DAILY 04/07/18 Lactobacillus Acidophilus [Bacid -] 1 tab PO BID 04/07/18 Nitrofurantoin Monohyd/M-Cryst [Macrobid -] 100 mg PO HS 04/07/18 Polyethylene Glycol 3350 [Miralax 119 gm Btl -] 17 gm PO BID 04/07/18 Ranitidine HCl [Zantac] 150 mg PO HS 04/07/18 Sennosides [Senna] 2 tab PO BID 04/07/18 Calcium Carbonate/Vitamin D3 [Calcium 500 + Vit D Caplet] 1 each PO DAILY Cranberry Fruit Extract [Cranberry Extract] 1 gm MC DAILY 04/04/19 Gabapentin [Neurontin -] 100 mg PO BID 04/04/19 Heparin - 5,000 unit SQ BID 04/04/19 Lidocaine [Aspercreme Lidocaine] 1 each TP DAILY 04/04/19 Losartan Potassium [Cozaar -] 25 mg PO DAILY 04/04/19 Mag Hydrox/Al Hydrox/Simeth [Mylanta Oral Suspension -] 30 ml PO PRN 04/04/19 Piperacillin/Tazob 3.375 gm [Zosyn -] 3.375 gm IV Q6H 04/04/19 Pramipexole Di-HCl [Mirapex] 0.25 mg PO DAILY 04/04/19 Simethicone 80 mg PO BID 04/04/19 Hydrocodone/Acetaminophen [Hydrocodone-Acetamin 5-325 mg] 1 each PO Q6H #20 tablet MDD 4 04/05/19 d snf
[2019-08-02 09:36] VITALS: BP 152/71; PULSE 81; TEMP 97.8
[2019-08-02] MEDS: ASPIRIN 81 MG CHEWABLE TABLETS PO SCH (11:18)
[2019-08-02] MEDS: HEPARIN NA (PORCINE) 5,000 UNITS/ML 1ML VIAL SQ SCH (11:18)
[2019-08-02] MEDS: CLOPIDOGREL BISULFATE 75 MG TABLET (FP) PO SCH (11:19)
== END 2019-08-02 11:40 | DRG 69 ==
LOC: JER 17:18 → JERBED 19:51 → J4W 08-01 14:58
PROVIDERS: ADMIT Internal Medicine; ATTEND Internal Medicine
DX: G45.9 Transient cerebral ischemic attack, unspecified (principal); H54.40 Blindness, one eye, unspecified eye; F32.9 Major depressive disorder, single episode, unspecified; E03.9 Hypothyroidism, unspecified; K21.9 Gastro-esophageal reflux disease without esophagitis; M48.00 Spinal stenosis, site unspecified; E11.40 Type 2 diabetes mellitus with diabetic neuropathy, unspecified; I12.9 Hypertensive chronic kidney disease with stage 1 through stage 4 chronic kidney disease, or unspecified chronic kidney disease; E11.22 Type 2 diabetes mellitus with diabetic chronic kidney disease; N18.9 Chronic kidney disease, unspecified; K64.9 Unspecified hemorrhoids; Z86.718 Personal history of other venous thrombosis and embolism
CPT/HCPCS: 36415; 70450-TC; 71045-TC-FY; 80053; 81003; 82465; 82550; 82553; 83718; 83721; 84478; 84484; 85025; 86850; 86900; 86901; 93005; 93010; 99285-25; J1644; J7030

== ENCOUNTER 2020-12-12 12:33 | Inpatient (IN) | payer OTHER ==
[2020-12-12] MEDS ORDERED: LACTATED RINGERS SOLUTION 1000 ML INFUS.BAG IV STA (13:49)
[2020-12-12] MEDS ORDERED: ACETAMINOPHEN 500 MG TABLET (FP) PO ONE (13:58)
[2020-12-12 14:47] LABS: BASO % 0.2 % (0-2.0); EOS % 1.9 % (0-4.5); HEMATOCRIT 35.1 % (32.4-45.2); HEMOGLOBIN 11.3 GM/dL (10.7-15.3); LYMPH % 24.3 % (8-40); MCH 26.8 pg (25.7-33.7); MCHC 32.2 g/dl (32.0-36.0); MEAN CELL VOLUME 83.3 fl (80-96); MEAN PLT VOLUME 8.4 fl (7.5-11.1); MONO % 5.6 % (3.8-10.2); PLATELET COUNT 251 K/MM3 (134-434); RBC 4.21 M/mm3 (3.60-5.2); RDW 15.7 % (11.6-15.6); WHITE BLOOD COUNT 7.3 K/mm3 (4.0-10.0)
[2020-12-12 14:52] LABS: EPI CELLS 30 /uL (0-25.1); HYALINE CASTS 8 /uL (0-3.1); PH,URINE >= 9.0 (5.0-8.0); URINE APPEARANCE TURBID; URINE BACTERIA >9,000 /uL (0-1359); URINE BILIRUBIN NEGATIVE (NEGATIVE); URINE COLOR DK YELLOW; URINE GLUCOSE (UA) NEGATIVE (NEGATIVE); URINE KETONE NEGATIVE (NEGATIVE); URINE LEUK ESTERASE 3+ (NEGATIVE); URINE NITRITE POSITIVE (NEGATIVE); URINE PROTEIN 2+ (NEGATIVE); URINE RBC 613 /uL (0-23.9); URINE UROBILINOGEN 0.2 mg/dL (0.2-1.0); URINE WBC 2546 /uL (0-25.8)
[2020-12-12 14:55] LABS: VENOUS BASE EXCESS 3.3 mmol/L (-2-2); VENOUS O2 SATURATION 52.4 % (70-80); VENOUS PCO2 57.8 mmHg (38-52); VENOUS PH 7.334 (7.310-7.410)
[2020-12-12 15:09] LABS: INR 0.94 (0.83-1.09); PROTHROMBIN TIME (PATIENT) 11.6 SEC (9.7-13.0)
[2020-12-12 15:11] LABS: ACTIVATED PTT 32.2 SECONDS (25.2-36.5)
[2020-12-12 15:13] LABS: ALBUMIN 3.6 g/dl (3.4-5.0); CALCIUM 9.3 mg/dL (8.5-10.1); GLUCOSE,RANDOM 221 mg/dL (74-106)
[2020-12-12 15:14] LABS: BLOOD UREA NITROGEN 39.4 mg/dL (7-18); CO2 33 mmol/L (21-32); SODIUM 139 mmol/L (136-145)
[2020-12-12 15:17] LABS: CREATININE 1.5 mg/dL (0.55-1.3); SGOT/AST 12 U/L (15-37); SGPT/ALT 6 U/L (13-61)
[2020-12-12 15:18] LABS: BILIRUBIN,TOTAL 0.4 mg/dL (0.2-1); TOT PROT 7.6 g/dl (6.4-8.2)
[2020-12-12 15:19] LABS: ALK PHOS 105 U/L (45-117)
[2020-12-12] MEDS ORDERED: CEFTRIAXONE 1,000 MG in DEXTROSE 5%-WATER - 50 ML IVPB ONE (15:26)
[2020-12-12] MEDS ORDERED: SODIUM CHLORIDE 1,000 ML IV SCH ×3 (15:30→18:36)
[2020-12-12 16:06] LABS: ANION GAP 4 MMOL/L (8-16); CHLORIDE 102 mmol/L (98-107)
[2020-12-12] MEDS ORDERED: LACTATED RINGERS SOLUTION 1,000 ML/1,000 ML INFUS.BAG IV SCH (16:15)
[2020-12-12] MEDS ORDERED: CEFTRIAXONE 1 GM/50 ML BAG ONE (16:27)
[2020-12-12] MEDS ORDERED: CORN STARCH TP PRN (18:55)
[2020-12-12] MEDS ORDERED: ACETAMINOPHEN 500 MG TABLET (FP) PO PRN (18:55)
[2020-12-12] MEDS ORDERED: traMADol HCL 50 MG TABLET PO PRN (18:55)
[2020-12-12] MEDS ORDERED: cloNIDine-TTS 0.2 MG/24 HOURS PATCH.TDWK TD SCH (20:00)
[2020-12-12] MEDS ORDERED: PATIENT'S OWN MEDICATION (NON-FORMULARY) (Clonidine Hcl [Clonidine Hcl Er] 0.1 MG Tab.Er.1 PO SCH (21:00)
[2020-12-12] MEDS: CARBIDOPA/LEVODOPA 25/100 TABLET (FP) PO SCH (21:11)
[2020-12-12] MEDS: HEPARIN NA (PORCINE) 5,000 UNITS/ML 1ML VIAL SQ SCH (21:11)
[2020-12-12] MEDS: DOCUSATE SODIUM 100 MG CAPSULE (FP) PO SCH (21:11)
[2020-12-12] MEDS: GABAPENTIN 300 MG CAPSULE PO SCH (21:11)
[2020-12-12] MEDS: LACTOBACILLUS ACIDOPHILUS 1 TABLET PO SCH (21:11)
[2020-12-12] MEDS: DULoxetine HCL 30 MG CAPSULE.DR PO SCH (21:11)
[2020-12-12] MEDS ORDERED: HEPARIN NA (PORCINE) 5,000 UNITS/ML 1ML VIAL SQ SCH (22:00)
[2020-12-12] MEDS ORDERED: DOCUSATE SODIUM 100 MG CAPSULE (FP) PO SCH (22:00)
[2020-12-12 23:42] VITALS: BMI 33.5
[2020-12-13] MEDS: INSULIN SLIDING SCALE (NOVOLOG) 1 VIAL SQ SCH ×3 (06:04→17:11)
[2020-12-13] MEDS: GABAPENTIN 300 MG CAPSULE PO SCH ×3 (06:04→21:04)
[2020-12-13] MEDS: HEPARIN NA (PORCINE) 5,000 UNITS/ML 1ML VIAL SQ SCH ×3 (06:04→21:04)
[2020-12-13] MEDS ORDERED: INSULIN SLIDING SCALE (NOVOLOG) 1 VIAL SQ SCH (07:00)
[2020-12-13] MEDS ORDERED: PATIENT'S OWN MEDICATION (NON-FORMULARY) (Lidocaine [Aspercreme Lidocaine] 1 EACH Adh..Pat TP SCH (10:00)
[2020-12-13 10:05] LABS: BASO % 0.3 % (0-2.0); EOS % 2.8 % (0-4.5); HEMATOCRIT 33.7 % (32.4-45.2); HEMOGLOBIN 10.8 GM/dL (10.7-15.3); MCH 26.6 pg (25.7-33.7); MEAN CELL VOLUME 83.1 fl (80-96); MEAN PLT VOLUME 8.1 fl (7.5-11.1); MONO % 5.6 % (3.8-10.2); NEUT % 71.3 % (42.8-82.8); PLATELET COUNT 214 K/MM3 (134-434); RBC 4.05 M/mm3 (3.60-5.2); RDW 16.2 % (11.6-15.6); WHITE BLOOD COUNT 6.1 K/mm3 (4.0-10.0)
[2020-12-13] MEDS ORDERED: DEXTROSE 5%-WATER - 50 ML IVPB ONE (10:28)
[2020-12-13] MEDS ORDERED: cefTRIAXone SODIUM 1 GM VIAL ONE (10:28)
[2020-12-13 10:37] LABS: BLOOD UREA NITROGEN 34.9 mg/dL (7-18); MAGNESIUM 2.8 mg/dL (1.8-2.4)
[2020-12-13 10:39] LABS: ALBUMIN 2.9 g/dl (3.4-5.0)
[2020-12-13 10:40] LABS: CREATININE 1.3 mg/dL (0.55-1.3); PHOSPHOROUS 3.5 mg/dL (2.5-4.9)
[2020-12-13 10:41] LABS: BILIRUBIN,TOTAL 0.4 mg/dL (0.2-1)
[2020-12-13] MEDS: CEFTRIAXONE 1 GM in DEXTROSE 5%-WATER - 50 ML IVPB SCH (10:42)
[2020-12-13 10:43] LABS: TOT PROT 6.6 g/dl (6.4-8.2)
[2020-12-13] MEDS: ASPIRIN 81 MG CHEWABLE TABLETS PO SCH (10:45)
[2020-12-13] MEDS: CLOPIDOGREL BISULFATE 75 MG TABLET (FP) PO SCH (10:45)
[2020-12-13] MEDS: DULoxetine HCL 30 MG CAPSULE.DR PO SCH ×2 (10:45→21:04)
[2020-12-13] MEDS: CARBIDOPA/LEVODOPA 25/100 TABLET (FP) PO SCH ×4 (10:45→21:04)
[2020-12-13] MEDS: SENNOSIDES 8.6MG TABLET (FP) PO SCH (10:46)
[2020-12-13] MEDS: FAMOTIDINE 20 MG TABLET PO SCH (10:46)
[2020-12-13] MEDS: LACTOBACILLUS ACIDOPHILUS 1 TABLET PO SCH ×2 (10:46→21:04)
[2020-12-13] MEDS ORDERED: INSULIN (NOVOLOG) ASPART 100 UNITS/ML 10ML VIAL ONE (20:59)
[2020-12-13] MEDS: DOCUSATE SODIUM 100 MG CAPSULE (FP) PO SCH (21:03)
[2020-12-13] MEDS: MELATONIN 5 MG TABLETS PO ONE (23:15)
[2020-12-13] MEDS ORDERED: LORazepam 2 MG/ML SDV VIAL IVPUSH ONE (23:38)
[2020-12-14] MEDS: GABAPENTIN 300 MG CAPSULE PO SCH ×4 (01:12→21:51)
[2020-12-14] MEDS: CARBIDOPA/LEVODOPA 25/100 TABLET (FP) PO SCH ×5 (01:12→21:51)
[2020-12-14] MEDS: DULoxetine HCL 30 MG CAPSULE.DR PO SCH ×3 (01:12→21:52)
[2020-12-14] MEDS: HEPARIN NA (PORCINE) 5,000 UNITS/ML 1ML VIAL SQ SCH ×4 (01:12→21:52)
[2020-12-14] MEDS: MELATONIN 5 MG TABLETS PO ONE (01:12)
[2020-12-14] MEDS: LACTOBACILLUS ACIDOPHILUS 1 TABLET PO SCH ×3 (01:12→21:51)
[2020-12-14] MEDS: INSULIN SLIDING SCALE (NOVOLOG) 1 VIAL SQ SCH ×3 (06:36→17:05)
[2020-12-14] MEDS ORDERED: DEXTROSE 5%-WATER - 50 ML IVPB ONE (09:21)
[2020-12-14] MEDS ORDERED: cefTRIAXone SODIUM 1 GM VIAL ONE (09:21)
[2020-12-14] MEDS: CLOPIDOGREL BISULFATE 75 MG TABLET (FP) PO SCH (09:25)
[2020-12-14] MEDS: FAMOTIDINE 20 MG TABLET PO SCH (09:26)
[2020-12-14] MEDS: ASPIRIN 81 MG CHEWABLE TABLETS PO SCH (09:26)
[2020-12-14] MEDS: SENNOSIDES 8.6MG TABLET (FP) PO SCH (09:27)
[2020-12-14 12:18] LABS: BASO % 0.1 % (0-2.0); EOS % 2.1 % (0-4.5); HEMATOCRIT 31.3 % (32.4-45.2); LYMPH % 23.4 % (8-40); MCH 26.5 pg (25.7-33.7); MCHC 31.9 g/dl (32.0-36.0); MEAN CELL VOLUME 83.3 fl (80-96); MEAN PLT VOLUME 8.4 fl (7.5-11.1); MONO % 6.2 % (3.8-10.2); NEUT % 68.2 % (42.8-82.8); PLATELET COUNT 202 K/MM3 (134-434); RBC 3.76 M/mm3 (3.60-5.2); WHITE BLOOD COUNT 4.9 K/mm3 (4.0-10.0)
[2020-12-14 12:43] LABS: CHLORIDE 104 mmol/L (98-107); SODIUM 140 mmol/L (136-145)
[2020-12-14 12:46] LABS: ANION GAP 6 MMOL/L (8-16); CALCIUM 8.4 mg/dL (8.5-10.1); CO2 30 mmol/L (21-32); GLUCOSE,RANDOM 198 mg/dL (74-106)
[2020-12-14 12:49] LABS: CHOLESTEROL 126 mg/dL (50-200); SGOT/AST 12 U/L (15-37); SGPT/ALT < 6 U/L (13-61); TRIGLYCERIDES 76 mg/dL (0-150)
[2020-12-14 12:50] LABS: BILIRUBIN,TOTAL 0.4 mg/dL (0.2-1); CREATININE 1.3 mg/dL (0.55-1.3); LDL CHOLESTEROL (ONLY SJRH) 65 mg/dL (5-100); TOT PROT 6.4 g/dl (6.4-8.2)
[2020-12-14 12:52] LABS: ALK PHOS 92 U/L (45-117); HDL CHOLESTEROL 46 mg/dL (40-60)
[2020-12-14] MEDS: CEFUROXIME AXETIL 500 MG TABLET PO SCH ×2 (14:02→21:51)
[2020-12-14] MEDS ORDERED: PT OWN MED DRAWER 7, Y5N ONE (21:40)
[2020-12-14] MEDS: DOCUSATE SODIUM 100 MG CAPSULE (FP) PO SCH (21:52)
[2020-12-15] MEDS ORDERED: LORazepam 2 MG/ML SDV VIAL IM ONE (00:50)
[2020-12-15] MEDS: HEPARIN NA (PORCINE) 5,000 UNITS/ML 1ML VIAL SQ SCH ×3 (06:43→21:07)
[2020-12-15] MEDS: GABAPENTIN 300 MG CAPSULE PO SCH ×3 (06:44→21:06)
[2020-12-15] MEDS: INSULIN SLIDING SCALE (NOVOLOG) 1 VIAL SQ SCH ×3 (06:45→16:48)
[2020-12-15] MEDS: CEFTRIAXONE 1 GM in DEXTROSE 5%-WATER - 50 ML IVPB SCH (07:23)
[2020-12-15] MEDS ORDERED: QUEtiapine FUMARATE 25 MG TABLET PO SCH ×2 (10:00→12:45)
[2020-12-15] MEDS: SENNOSIDES 8.6MG TABLET (FP) PO SCH (10:46)
[2020-12-15] MEDS: ASPIRIN 81 MG CHEWABLE TABLETS PO SCH (10:46)
[2020-12-15] MEDS: CARBIDOPA/LEVODOPA 25/100 TABLET (FP) PO SCH ×4 (10:46→21:06)
[2020-12-15] MEDS: CLOPIDOGREL BISULFATE 75 MG TABLET (FP) PO SCH (10:46)
[2020-12-15] MEDS: CEFUROXIME AXETIL 500 MG TABLET PO SCH ×2 (10:46→21:06)
[2020-12-15] MEDS: FAMOTIDINE 20 MG TABLET PO SCH (10:47)
[2020-12-15] MEDS: LACTOBACILLUS ACIDOPHILUS 1 TABLET PO SCH ×2 (10:47→21:06)
[2020-12-15] MEDS: DULoxetine HCL 30 MG CAPSULE.DR PO SCH ×2 (10:47→21:06)
[2020-12-15] MEDS: DOCUSATE SODIUM 100 MG CAPSULE (FP) PO SCH (21:06)
[2020-12-15] MEDS: QUEtiapine FUMARATE 25 MG TABLET PO SCH (22:20)
[2020-12-16] MEDS ORDERED: LORazepam 2 MG/ML SDV VIAL IM ONE (00:21)
[2020-12-16] MEDS ORDERED: HALOPERIDOL LACTATE 5 MG/ML IM ONE ×2 (03:47→21:23)
[2020-12-16] MEDS: GABAPENTIN 300 MG CAPSULE PO SCH ×3 (05:44→22:38)
[2020-12-16] MEDS: HEPARIN NA (PORCINE) 5,000 UNITS/ML 1ML VIAL SQ SCH ×3 (05:44→22:25)
[2020-12-16] MEDS: INSULIN SLIDING SCALE (NOVOLOG) 1 VIAL SQ SCH ×3 (06:04→16:37)
[2020-12-16] MEDS: SENNOSIDES 8.6MG TABLET (FP) PO SCH (11:43)
[2020-12-16] MEDS: DULoxetine HCL 30 MG CAPSULE.DR PO SCH ×2 (11:43→22:38)
[2020-12-16] MEDS: CARBIDOPA/LEVODOPA 25/100 TABLET (FP) PO SCH ×4 (11:43→22:46)
[2020-12-16] MEDS: CEFUROXIME AXETIL 500 MG TABLET PO SCH ×2 (11:44→22:38)
[2020-12-16] MEDS: CLOPIDOGREL BISULFATE 75 MG TABLET (FP) PO SCH (11:44)
[2020-12-16] MEDS: QUEtiapine FUMARATE 25 MG TABLET PO SCH ×2 (11:44→22:28)
[2020-12-16] MEDS: ASPIRIN 81 MG CHEWABLE TABLETS PO SCH (11:44)
[2020-12-16] MEDS: FAMOTIDINE 20 MG TABLET PO SCH (11:44)
[2020-12-16] MEDS: LACTOBACILLUS ACIDOPHILUS 1 TABLET PO SCH ×2 (11:44→22:27)
[2020-12-16] MEDS: DOCUSATE SODIUM 100 MG CAPSULE (FP) PO SCH (22:27)
[2020-12-17] MEDS: GABAPENTIN 300 MG CAPSULE PO SCH ×3 (07:05→21:18)
[2020-12-17] MEDS: INSULIN SLIDING SCALE (NOVOLOG) 1 VIAL SQ SCH ×3 (07:05→18:40)
[2020-12-17] MEDS: HEPARIN NA (PORCINE) 5,000 UNITS/ML 1ML VIAL SQ SCH ×3 (07:07→21:19)
[2020-12-17] MEDS: ASPIRIN 81 MG CHEWABLE TABLETS PO SCH (12:01)
[2020-12-17] MEDS: LACTOBACILLUS ACIDOPHILUS 1 TABLET PO SCH ×2 (12:01→21:20)
[2020-12-17] MEDS: CLOPIDOGREL BISULFATE 75 MG TABLET (FP) PO SCH (12:01)
[2020-12-17] MEDS: CEFUROXIME AXETIL 500 MG TABLET PO SCH ×2 (12:01→21:19)
[2020-12-17] MEDS: SENNOSIDES 8.6MG TABLET (FP) PO SCH (12:01)
[2020-12-17] MEDS: QUEtiapine FUMARATE 25 MG TABLET PO SCH ×3 (12:02→21:20)
[2020-12-17] MEDS: CARBIDOPA/LEVODOPA 25/100 TABLET (FP) PO SCH ×4 (12:02→21:19)
[2020-12-17] MEDS: FAMOTIDINE 20 MG TABLET PO SCH (12:02)
[2020-12-17] MEDS: DULoxetine HCL 30 MG CAPSULE.DR PO SCH ×2 (12:02→21:19)
[2020-12-17] MEDS ORDERED: INSULIN (NOVOLOG) ASPART 100 UNITS/ML 10ML VIAL ONE (21:13)
[2020-12-17] MEDS: DOCUSATE SODIUM 100 MG CAPSULE (FP) PO SCH (21:19)
[2020-12-18] MEDS: HEPARIN NA (PORCINE) 5,000 UNITS/ML 1ML VIAL SQ SCH ×2 (05:58→13:47)
[2020-12-18] MEDS: GABAPENTIN 300 MG CAPSULE PO SCH ×2 (05:58→13:47)
[2020-12-18] MEDS: INSULIN SLIDING SCALE (NOVOLOG) 1 VIAL SQ SCH ×3 (06:10→17:06)
[2020-12-18] MEDS: ASPIRIN 81 MG CHEWABLE TABLETS PO SCH (10:22)
[2020-12-18] MEDS: CEFUROXIME AXETIL 500 MG TABLET PO SCH (10:22)
[2020-12-18] MEDS: DULoxetine HCL 30 MG CAPSULE.DR PO SCH (10:23)
[2020-12-18] MEDS: SENNOSIDES 8.6MG TABLET (FP) PO SCH (10:23)
[2020-12-18] MEDS: CARBIDOPA/LEVODOPA 25/100 TABLET (FP) PO SCH ×3 (10:23→17:03)
[2020-12-18] MEDS: CLOPIDOGREL BISULFATE 75 MG TABLET (FP) PO SCH (10:23)
[2020-12-18] MEDS: FAMOTIDINE 20 MG TABLET PO SCH (10:24)
[2020-12-18] MEDS: LACTOBACILLUS ACIDOPHILUS 1 TABLET PO SCH (10:24)
[2020-12-18] MEDS: QUEtiapine FUMARATE 25 MG TABLET PO SCH (10:25)
[2020-12-18] MEDS ORDERED: INSULIN (NOVOLOG) ASPART 100 UNITS/ML 10ML VIAL ONE (11:33)
[2020-12-18 13:45] VITALS: BP 137/77; PULSE 105; TEMP 98.1
== END 2020-12-18 20:56 | DRG 682 ==
LOC: JER 12:33 → JERBED 17:13 → J6S 18:39
PROVIDERS: ADMIT Internal Medicine; ATTEND Internal Medicine
DX: N17.9 Acute kidney failure, unspecified (principal); G93.41 Metabolic encephalopathy; N39.0 Urinary tract infection, site not specified; G20 Parkinson's disease; I10 Essential (primary) hypertension; D64.9 Anemia, unspecified; E11.9 Type 2 diabetes mellitus without complications; Z79.4 Long term (current) use of insulin; E86.0 Dehydration; F32.9 Major depressive disorder, single episode, unspecified; E66.9 Obesity, unspecified; I69.398 Other sequelae of cerebral infarction; R55 Syncope and collapse; E03.9 Hypothyroidism, unspecified; K21.9 Gastro-esophageal reflux disease without esophagitis; N13.6 Pyonephrosis; B96.4 Proteus (mirabilis) (morganii) as the cause of diseases classified elsewhere; H54.40 Blindness, one eye, unspecified eye; Z68.33 Body mass index [BMI] 33.0-33.9, adult
CPT/HCPCS: 36415; 70450-TC; 71045-TC-FY; 74176-TC; 76775-TC; 80053; 80061; 81003; 82550; 82803; 82962; 83036; 83605; 83721; 83735; 84100; 84443; 84484; 85025; 85379; 85610; 85730; 86140; 87086; 87186; 87804; 93005; 93010; 93306-TC; 93880-TC; 97116-GP; 97162-GP; 99285-25; C9803; J1644; U0003; U0005

== ENCOUNTER 2020-12-23 05:16 | Day surgery (SDC) | payer OTHER ==
[2020-12-20 17:20] VITALS: BMI 42.3
[2020-12-23] MEDS ORDERED: PROPOFOL 20 ML ONE ×3 (12:12)
[2020-12-23] MEDS ORDERED: SUCCINYLCHOLINE CHLORIDE 200 MG/10 ML SYRINGE ONE (12:12)
[2020-12-23] MEDS ORDERED: MIDAZOLAM HCL 2 MG/2 ML SINGLE DOSE VIAL ONE (12:13)
[2020-12-23] MEDS ORDERED: oxyCODONE HCL 5 MG TABLET PO PRN (14:01)
[2020-12-23] MEDS ORDERED: ONDANSETRON 4 MG/2 ML VIAL IVPUSH PRN (14:01)
[2020-12-23] MEDS ORDERED: LACTATED RINGERS SOLUTION 1,000 ML IV SCH (14:15)
[2020-12-23 16:45] VITALS: BP 159/63; PULSE 69; TEMP 98.4
== END 2020-12-23 16:30 | disposition home or self-care (01) ==
LOC: JASU-SURG 05:16
PROVIDERS: ATTEND Urology
PROC: BT1FYZZ Fluoroscopy of Left Kidney, Ureter and Bladder using Other Contrast (ICD-10-PCS; principal; 2020-12-23 12:30)
PROC: 0TJ58ZZ Inspection of Kidney, Via Natural or Artificial Opening Endoscopic (ICD-10-PCS; 2020-12-23 12:30)
DX: N13.30 Unspecified hydronephrosis (principal); N32.89 Other specified disorders of bladder; N31.9 Neuromuscular dysfunction of bladder, unspecified; E11.9 Type 2 diabetes mellitus without complications
CPT/HCPCS: 76000-TC-FY; 82962; 87086; 87186; 94760